=== PATIENT | female | born 1945 | race Caucasian/White ===

== ENCOUNTER 2021-01-02 21:57 | Emergency (ER) | payer MEDICARE, MEDICAID, SELFPAY ==
--- NOTE | ~2021-01-02 | CT_ITS ---
EXAMINATION: CT HEAD WITHOUT CONTRAST CLINICAL INFORMATION: Fall. Patient on blood thinning medicine. COMPARISON: Previous head CT April 2019 TECHNIQUE: Contiguous axial imaging was performed from the skull base to vertex without intravenous administration of contrast. This CT examination was performed using dose optimization techniques as appropriate, variously including the following: *Automated exposure control *Adjustment of mA and/or kV according to patient size (this includes techniques or standardized protocols for targeted exams where dose is matched to indication/reason for exam; i.e. extremities or head) *Use of iterative reconstruction technique DLP: 758 mGy-cm FINDINGS: There is no evidence of an extra-axial collection. There is a small linear focus of linear high attenuation seen in the left frontoparietal region questionable for small extra-axial/subarachnoid hemorrhage for example axial image 34 series 10. There is no other evidence of intra-axial or extra-axial hemorrhage. There is an old right occipital infarct. There is an old left parietal infarct. There is an old bilateral thalamic lacunar infarcts. The ventricles and extra-axial CSF spaces are prominent. There is nonspecific periventricular white matter disease. No mass, mass effect or acute infarct is seen. There is a large scalp hematoma overlying the left parietal bone. No skull fracture is seen. CT/CT head/brain wo con IMPRESSION: Question small focus of extra-axial hemorrhage, probably subarachnoid hemorrhage, in the left frontal parietal region near the vertex. Generalized atrophy and nonspecific periventricular white matter disease. 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 Largest scalp hematoma overlying the left parietal bone. Findings were communicated to Dr. Thurston by telephone on 01/02/2021 at 11:00 PM.
--- NOTE | ~2021-01-02 | CT_ITS ---
EXAMINATION: CT CERVICAL SPINE WITHOUT CONTRAST CLINICAL INFORMATION: Head trauma COMPARISON: None TECHNIQUE: Axial images through the cervical spine without contrast. Sagittal and coronal reconstructions on the technologist workstation were performed. This CT examination was performed using dose optimization techniques as appropriate, variously including the following: *Automated exposure control *Adjustment of mA and/or kV according to patient size (this includes techniques or standardized protocols for targeted exams where dose is matched to indication/reason for exam; i.e. extremities or head) *Use of iterative reconstruction technique DLP: 536 mGy-cm FINDINGS: There is head tilt to the left and mild curvature of the mid cervical spine to the right. Bone alignment is otherwise normal. No fracture or dislocation is seen. There is multilevel degenerative spondylosis and degenerative disc disease, greatest at C3-C4 C4-C5 C5-C6 and C6-C7. There are degenerative changes at the C1 dens articulation. Prevertebral soft tissues are normal. There is bilateral carotid calcification. Lung apices are clear. CT/CT cervical spine wo con IMPRESSION: Degenerative changes. No fracture or dislocation seen.
--- NOTE | 2021-01-02 22:08 | ED.HEATRA ---
HPI - Head Injury General Chief complaint: Fall Stated complaint: fall Time Seen by Provider: 01/02/21 22:08 Source: patient Mode of arrival: EMS Limitations: other (dementia) History of Present Illness HPI Narrative: According to senior living patient fell in the bathroom, unwitnessed. Patient unable to remember the event due to her dementia. she did vomit at the senior living Complaint: head injury Onset (ago): minute(s) Arrival Conditions: C-spine immobilization present Mechanism of Injury: fall Place: other (senior living) Loss of Consciousness: unsure Location of injury: occipital Severity: moderate Quality: sharp Radiation: none Other Injuries: none Associated symptoms: nausea and vomiting Related Data Allergies Allergy/AdvReac Type Severity Reaction Status Date / Time Penicillins [PCN] Allergy Unknown UNKNOWN Verified 01/02/21 22:10 BP MEDS Allergy Unknown CAN ONLY Uncoded 05/08/20 17:02 TAKE ATENOLOL Review of Systems Review of Systems: Yes Unobtainable due to mental status Neurologic: Denies Sensory deficit (Neuro) [facility] Past Medical History Medical History (Updated 01/02/21 @ 23:33 by Ap Thurston MD) Dementia Epilepsy Hemiparesis Hemiplegia History of falling HTN (hypertension) Hypothyroid Morbid obesity Social History Social History Alcohol intake: never Smoking Status: Never smoker Advance Directives: No Advance Directives Information Provided: Yes Physical Exam Vital Signs: Vital Signs: Last Vital Signs Temp 97.6 F 01/02/21 22:10 Pulse 92 01/02/21 23:20 Resp 16 01/02/21 23:20 BP 166/68 H 01/02/21 23:20 Pulse Ox 97 01/02/21 23:20 Body Mass Index 45.2 Const: Other: morbidly obese female demented and agitated in [facility] Nutritional Appearance: obese Orientation/consciousness: oriented to person and patient oriented x3 Limitations: no limitations HENMT: Head: Yes normal to inspection Ears: external ears normal General nose exam: Normal external nose present Mouth: Normal oral and palatal mucosa present and oropharynx normal Throat: Yes posterior oropharynx normal Eyes: General: appearance normal, both eyes and all related structures Neck: Other: [facility] Neck: Yes normal visual inspection Chest: Chest palpation & inspection: normal inspection of the chest Resp: Auscultation: clear to auscultation bilaterally Cardio: Jugular venous distension: no JVD Rate: regular rate Rhythm: regular rhythm Heart sounds: S1 normal heart sound present and S2 normal heart sound present GI: Inspection: Yes normal to inspection Palpation (GI): Soft to palpation, nontender and No hepatosplenomegaly present Auscultation: normal bowel sounds : General: Yes no CVA tenderness Back/Spine/Pelvis: Back: no CVA tenderness Skin: General skin exam: no rashes or lesions noted Neuro: General: oriented to person and patient oriented x3 Cranial nerves: Yes CN's II-XII intact bilaterally Motor exam (neuro): 5/5 motor strength present throughout Sensory Exam: No Sensory deficit (Neuro) Extrem: General: Yes normal to inspection Psych: Appearance: grossly normal Course Course Course Narrative: Patient is DNR/DNI with small subarachnoid bleed on xarelto. Will admit for observation Reevaluation(s) Reevaluation #1: Case refused by Hospitalist will try and transfer patient Time: 23:16 Reevaluation #2: presented to [facility] Time: 23:24 Reevaluation #3: Discussed with will transfer to [facility] as a trauma Time: 23:31 MDM - Head Injury Differential Diagnosis Differential diagnosis: Likely concussion without loss of consciousness, epidural hematoma, closed head injury, subarachnoid hematoma and subdural hematoma Imaging Data CT scan - head: Radiologist's impression: small left frontal parietal subarachnoid bleed. Cervical spine: Radiologist's impression: no fracture Discharge Plan Discharge Clinical Impression: Subarachnoid hemorrhage Patient Disposition: er [facility] Transfer Details: trauma service at [facility]
[2021-01-02 22:10] VITALS: BP 136/72; BP 140/78; PULSE 80; PULSE 88; RESP 18; TEMP 36.4; O2SAT 96; O2SAT 99; BMI 45.2
--- NOTE | 2021-01-02 22:37 | PC.NURSE ---
PT OFF FLOOR TO CT.
--- NOTE | 2021-01-02 23:07 | ECG_ITS ---
Test Reason : CHEST PAIN Blood Pressure : / mmHG Vent. Rate : 096 BPM Atrial Rate : 113 BPM P-R Int : 000 ms QRS Dur : 106 ms QT Int : 398 ms P-R-T Axes : 000 033 -27 degrees QTc Int : 502 ms Atrial fibrillation Nonspecific ST abnormality Abnormal QRS-T angle, consider primary T wave abnormality Abnormal ECG When compared with ECG of 03-MAY-2019 17:31, ST no longer depressed in Lateral leads T wave inversion no longer evident in Lateral leads Referred By: Ap Thurston Electronically Signed By:Alber Zapata
--- NOTE | 2021-01-02 23:12 | PC.NURSE ---
CCOLLAR REMOVED BY PT SELF PRIOR TO CLEARANCE BY CT. CT THEN CONFIRMED NO CSPINE INJURY. PT CLEANED AND REPOSITIONED, REPORTING SPINNING WHEN MOVING FROM ONE SIDE TO THE OTHER. VOMITx1. NOTIFIED. 2 IV LINES OBTAINED. PT REMAINS ALERT ORIENTED TO PERSON AND PLACE. REQUEST IN TO MD FOR ZOFRAN. PT STATES I DONT FEEL GOOD SKIN PALE WARM AND DRY. AFIB ON MONITOR. OFFERS NO OTHER COMPLAINTS. SMALL LAC TO BACK OF HEAD, BLEEDING CONTROLLED AT THIS TIME.
[2021-01-02 23:20] VITALS: BP 166/68; PULSE 92; RESP 16; O2SAT 97
[2021-01-02] MEDS: ondansetron HCL 4 MG/2 ML VIAL IVPUSH (23:51)
--- NOTE | 2021-01-02 23:52 | PC.NURSE ---
PT TO BE TRANSFERRED TO [facility]. THIS RN TO CONTACT DAUGHTER TO UPDATE ON PLAN OF CARE. PT ASSESSMENT REMAINS UNCHANGED. RESTING IN BED, A&0x2 NO FURTHER VOMITING. VSS, AFIB ON MONITOR. AWAITING TRANSPORT.
[2021-01-03] VITALS: BP 155/70; PULSE 83; RESP 17; O2SAT 92
--- NOTE | 2021-01-03 00:02 | PC.NURSE ---
THIS RN SPOKE WITH DAUGHTER MIGUEL ÁNGEL, UPDATED TO PLAN OF CARE.
== END 2021-01-03 00:14 | disposition short-term general hospital (02) ==
PROVIDERS: Emergency Provider Emergency Medicine; PCP Family Medicine
DX: S06.6X9A Traumatic subarachnoid hemorrhage with loss of consciousness of unspecified duration, initial encounter (principal); G44.309 Post-traumatic headache, unspecified, not intractable; M54.2 Cervicalgia; W01.0XXA Fall on same level from slipping, tripping and stumbling without subsequent striking against object, initial encounter; Y93.9 Activity, unspecified; Y92.121 Bathroom in nursing home as the place of occurrence of the external cause; Y99.9 Unspecified external cause status; Z79.899 Other long term (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
CPT/HCPCS: 70450; 72125; 93005; 96374; 99285; J2405

== ENCOUNTER 2024-10-02 13:33 | Emergency (ER) | payer MEDICARE, MEDICAID, SELFPAY ==
--- NOTE | ~2024-10-02 | XR_ITS ---
EXAMINATION: XR KNEE, LEFT CLINICAL INFORMATION: pain COMPARISON: 12/11/2015. TECHNIQUE: Three views of the left knee. FINDINGS: Diffuse osteopenia. No fracture, dislocation, or suspicious bone lesion. No evidence of joint effusion. Severe tricompartmental arthritis with [id number] appearance in all 3 compartments. Irregular subchondral sclerosis, cystic changes, and productive marginal changes. No discrete soft tissue abnormality. XR/XR knee LT 3V IMPRESSION: End-stage degenerative arthropathy left knee. No joint effusion. No acute finding Electronically signed by: Andrey See MD 10/02/2024 03:54 PM EST
--- NOTE | ~2024-10-02 | XR_ITS ---
EXAMINATION: X-ray left tibia and fibula.. CLINICAL INFORMATION: Probably injury. Pain. COMPARISON: No priors. TECHNIQUE: 2 views left tibia and fibula. FINDINGS: Inadequate evaluation of the proximal and distal joints demonstrated deformities in the left knee and left ankle. Osteopenia versus osteoporosis. No acute cortical disruption in the diaphysis of the tibia or the fibula. Vascular calcifications. Soft tissue contusion versus edema in the lateral malleolus. XR/XR tibia fibula LT 2V IMPRESSION: Inadequate evaluation of the proximal and distal joints suggesting bicompartmental osteoarthrosis in the left knee and soft tissue contusion and lateral malleolus. Electronically signed by: Sam Greco MD 10/02/2024 02:39 PM TATA
--- NOTE | ~2024-10-02 | XR_ITS ---
EXAMINATION: XR ANKLE 3 OR MORE VIEWS LEFT HISTORY: pain COMPARISON: There are no prior studies available for comparison. FINDINGS: Three views of the left ankle are submitted. The examination is limited due to difficulty in patient positioning and severe osteopenia. There is a mildly displaced fracture of the medial malleolus. The distal fibula is not well visualized and a fracture is not excluded. There is no dislocation. The joint spaces are preserved. There is diffuse soft tissue swelling. There are vascular calcifications. XR/XR ankle LT min 3V IMPRESSION: Limited examination due to difficulty in patient positioning and severe osteopenia. Mildly displaced fracture of the medial malleolus. The distal fibula is not well visualized and a fracture in this location is not excluded. Electronically signed by: Vince Freeman MD 10/02/2024 03:51 PM TATA
[2024-10-02 13:55] VITALS: BP 130/68; PULSE 61; RESP 20; TEMP 36.2; O2SAT 98; BMI 36.9
--- NOTE | 2024-10-02 14:04 | ED_ITS ---
HPI - Extremity Injury (Lower) General Chief Complaint: Extremity Injury, Lower Stated Complaint: poss L ankle fx from [facility], uncooperative Time Seen by Provider: 10/02/24 14:01 Source: patient Mode of arrival: EMS Limitations: other (dementia) History of Present Illness HPI Narrative: This is 79 years old the patient sent from the [facility] because of possible left tib fib fracture. Patient is unable to give any history she has history of dementia unclear of the mechanism of injury MD complaint: leg injury Onset (ago): unknown Type of Injury: blunt Place: other ([facility]) Severity: moderate Relieving factors: nothing Exacerbating factors: nothing Related Data Allergies Allergy/AdvReac Type Severity Reaction Status Date / Time Penicillins [PCN] Allergy Unknown UNKNOWN Verified 10/02/24 13:58 BP MEDS Allergy Unknown CAN ONLY Uncoded 10/02/24 13:58 TAKE ATENOLOL Review of Systems Review of Systems: Yes Other (dementia) [facility] Past Medical History Medical History (Updated 10/02/24 @ 16:23 by Jerod Alcaraz MD) Morbid obesity HTN (hypertension) Epilepsy Dementia Hypothyroid History of falling Hemiparesis Hemiplegia Social History Social History Alcohol intake: never Advance Directives: Yes Advance Directives Information Provided: No Advance Directives on File: No Physical Exam Vital Signs: Vital Signs: Last Vital Signs Temp 97.2 F 10/02/24 13:55 Pulse 61 10/02/24 13:55 Resp 20 10/02/24 13:55 BP 130/68 10/02/24 13:55 Pulse Ox 98 10/02/24 13:55 O2 Del Method Room Air 10/02/24 13:55 BMI result Body Mass Index 36.9 She is awake alert disoriented Const: General: no acute distress and well developed Nutritional Appearance: well nourished HEENT: Head: Yes normal to inspection Eyes: General: appearance normal, both eyes and all related structures Neck: Neck: Yes normal visual inspection Chest: Chest palpation & inspection: normal inspection of the chest Resp: Effort & Inspection: normal respiratory effort Auscultation: clear to auscultation bilaterally Cardio: Jugular venous distension: no JVD Rate: regular rate Rhythm: regular rhythm GI: Inspection: Yes normal to inspection Palpation (GI): Soft to palpation, not firm, nontender and no guarding Auscultation: normal bowel sounds Skin: General skin exam: no rashes or lesions noted and elasticity normal Neuro: Other: Patient has old left hemiplegia ;meuro exam at baseline Course Reevaluation(s) Reevaluation #1: We called the [place] at baseline the patient is not ambulatory she is bed- bound and Jacques transfer Time: 15:01 Reevaluation #2: Tib-fib x-ray negative, we will check also left ankle and left knee Time: 15:01 Reevaluation #3: I reviewed the x-ray of the ankle and the knee as well radiology read the x-ray as fracture of the medial malleolus, to my reading most likely is a chronic fracture, I will review the filming with orthopedist on-call Time: 16:07 Additional Reevaluation(s): d/w Tashia Adams avulsion fx medial malleoulus ,no surgical will place splint and follow up as outpatient Medical Decision Making Medical Decision Making [facility] Narrative: Patient presented with a left leg pain possible fracture we will obtain imaging Differential Diagnosis Differential Diagnoses: The differential diagnosis associated with the presentation includes Question fracture/? dislocation/? sprain Admission/Observation Consideration of admission/observation: Escalation of care including admission/observation considered Consult Healthcare Provider Management of the patient was discussed with: Customer Engagement Manager TASHIA Adams Lab Data [facility] Lab Attestation statement: I reviewed the patient's lab results. Independent Interpretation I performed an independent interpretation of an: Plain X-Ray Interpretation: I personally reviewed interpreted the x-ray as possible avulsion fracture medial malleolus Radiology Impression Discussion of test interpretation with radiology: I have reviewed the radiologist's reading. Independent Historian [facility] record Chronic Conditions CVA Procedures Orthopedic Splinting/Casting Injury #1: Side: left Lower Extremity Injury Location: ankle Additional Comments: sugar tongue spint applied by il circulation cheeked OK Discharge Plan Discharge Clinical Impression: Ankle fracture, left Qualifiers: Encounter type: initial encounter Fracture type: closed Qualified Code(s): S82.892A - Other fracture of left lower leg, initial encounter for closed fracture Patient Disposition: er [facility] Instructions: Ankle Fracture (DC) Additional Instructions: Follow-up with the orthopedist your fracture is minimally displaced , does not need any surgery. Keep the splint on Referrals: Neil Mariscal MD [Physician] - 1 week Print Language: Albanian
--- OUTSIDE RECORDS SUMMARY | 2024-10-02 15:12 | XMS_ITS | Encounter Summary ---
Author Organization [facility] Address [address] [place] [address] Care Team Providers Care Hazardous Substances Engineer Name Role Phone Elton Charles MD Primary Care Provider [phone] Encounter Details Date Type Department Care Team (Late st Contact Info) Description 09/19/2024 Lab Requisition [facility] - Main Lab [address] [place] [address] Elton Charles MD [address] [facility] [address] [place], [phone] Other senior living (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 Social History Tobacco Use Types Packs/Day Years Used Date Smoking Tobacco: Never Assessed Comments Unknown Sex and Gender Information Value Date Recorded Sex Assigned at Not on file Legal Sex Female 5:18 AM EST Gender Identity Not on file Sexual Orientation Not on file documented as of this encounter Plan of Treatment Not on file documented as of this encounter Procedures Procedure Name Priority Date/Time Associated Diagnosis Comments VALPROIC ACID LEVEL, TOTAL Routine 09/19/2024 9:03 AM EST Other senior living (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 documented in this encounter Results * (ABNORMAL) Valproic acid level, total (09/19/2024 9:03 AM EST) Valproic Acid, Total 30(L) 50 - 100 mcg/mL LAB CHEMISTRY METHOD 09/19/2024 12:37 PM EST [facility] Blood Venous blood specimen / Unknown Venipuncture / Unknown 09/19/2024 9:03 AM EST 09/19/2024 11:39 AM EST us Elton Charles MD LAB BLOOD ORDERABLES Final Resul t [facility] [place] ([facility]) HOSPITAL LAB [address] [place] [address], documented in this encounter Visit Diagnoses 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
--- OUTSIDE RECORDS SUMMARY | 2024-10-02 15:12 | XMS_ITS | Data Portability ---
Author Organization [facility], Main Office Address [address] [place] [address] Care Team Providers Care Ladle Liner Helper Name Role Phone [facility] [place] - 4TH FLOOR OTHER Assessment No assessment recorded. Plan of Treatment Reminders Order Date Submit Date Provider Last Modified By Organization Details Last Modified Time Details Appointments None record ed. Lab None record ed. Referral None record ed. Procedures None record ed. Surgeries None record ed. Imaging None record ed. Medication Orders None record ed. Patient TargetsNo targets recorded. Patient InstructionsNo instructions recorded. Reason for Referral None Reported. Problems Name Problem SNOMED Code Status Onset Date Resolution Date Notes Provider Name and Address Organization Details Recorded Time Unsteady gait Active 2019 Elton Charles MD [address], [address], [place], [address], [facility] [employer] 0 13:48:14 Hypothyroidism 98985426 Active 2020 BRAXTON BERNSTEIN [address], [address], [place], [address], [facility] [employer] 1 10:54:46 Fall Active 2020 BRAXTON BERNSTEIN [address], [address], [place], [address], [facility] [employer] 1 21:11:30 Mixed anxiety and depressive disorder 070522267 Active 2020 BRAXTON BERNSTEIN [address], [address], [place], [address], [facility] 1 21:17:00 Subarachnoid hemorrhage due to traumatic injury 038666108 Active 2020 BRAXTON BERNSTEIN [address], [address], [place], [address], [facility] 1 21:19:57 Postconcussion syndrome 28135131 Active 2020 BRAXTON BERNSTEIN [address] [facility], [address], [place], [address], [facility] 1 19:44:12 Pain in right knee Active 2020 KAY BERNSTEINP [address] [facility] [address] [facility], [address], [place], [address], [facility] 1 17:35:06 Arthritis 8575967 Active 2021 BRAXTON BERNSTEIN [address] [facility] [address] [facility], [address], [place], [address], [facility] 2 08:09:01 Chronic insomnia 470801677 Active 2021 BRAXTON BERNSTEIN [address] [facility], [address], [place], [address], [facility] 2 12:33:07 Atrial fibrillation 40459370 Active [address] [place] [address], [address], [place], [address], [facility] 9 08:53:30 Cerebrovascula r accident 178802947 Active 2018 MICKI MILIAN [address] [place] [address], [address], [place], [address], [facility] 9 08:53:35 Seizure disorder 194540564 Active 2018 MICKI MILIAN [address] [place] [address], [address], [place], [address], [facility] 9 08:54:40 Dementia 28809776 Active [address], [address], [place], [address], [facility] 9 09:00:49 Essential hypertension 25168391 Active [address], [address], [place], [address], [facility] 9 09:00:56 Obesity 356522627 Active 2018 MICIK MILIAN [address] [facility], [address], [place], [address] [facility] 9 09:01:03 Problem Notes None recorded. Medical Equipment None Reported. Allergies Allergen ID Allergen Name Allergen Category Reaction Reaction Severity Criticality Documentation Date Start Date Code Code System Note Provider Name and Address Organization Details Recorded Time 07759 Product containin g penicilli n and antibioti c (product) medicatio n Not available Not available Not available 05/05/2019 49763 05 SNOMED CAN TAKE CEFTI N Not Available Not Available Not Available Medications Not known to be on any medication Vitals Date Recorded Body height Body mass index (BMI) Body weight Heart rate Respiratory rate Body temperature Oxygen saturation Oxygen saturation in Arterial blood by Pulse oximetry Systolic blood pressure Diastolic blood pressure Provider Name and Address Organization Details Last Updated DateTime 4 165.1 cm 32.9 kg/m2 69543.2 9 g 77 /min 17 /min 98.1 [degF] 96 % 96 % 122 mm[Hg] 72 mm[Hg] Lauren Romero NP [address] [facility], [address], [place], [address], [facility] 4 08:24:02 Date Recorded Body height Body mass index (BMI) Body weight Heart rate Respiratory rate Body temperature Oxygen saturation Oxygen saturation in Arterial blood by Pulse oximetry Systolic blood pressure Diastolic blood pressure Provider Name and Address Organization Details Last Updated DateTime 5 165.1 cm 30.8 kg/m2 32538.5 9 g 74 /min 18 /min 98 [degF] 98 % 98 % 124 mm[Hg] 74 mm[Hg] Lauren Romero NP [address], [place], [address], [facility] 5 17:40:36 Date Recorded Body height Body mass index (BMI) Body weight Heart rate Respiratory rate Body temperature Oxygen saturation Oxygen saturation in Arterial blood by Pulse oximetry Systolic blood pressure Diastolic blood pressure Provider Name and Address Organization Details Last Updated DateTime 5 165.1 cm 33.6 kg/m2 63337.6 6 g 70 /min 18 /min 97.6 [degF] 98 % 98 % 132 mm[Hg] 80 mm[Hg] Lauren Romero NP [address] [facility] [facility] [address], [place], [address], [facility] 5 15:32:09 Date Recorded Body height Body mass index (BMI) Body weight Heart rate Respiratory rate Body temperature Oxygen saturation Oxygen saturation in Arterial blood by Pulse oximetry Systolic blood pressure Diastolic blood pressure Provider Name and Address Organization Details Last Updated DateTime 165.1 cm 33.6 kg/m2 51478.6 6 g 70 /min 18 /min 97.6 [degF] 98 % 98 % 132 mm[Hg] 80 mm[Hg] Lauren Romero NP [address] [facility] [address], [place], [address], [facility] [employer] 5 15:03:33 Social History Question Answer Notes LastModified by Organizat ion Details LastModified Time Tobacco Smoking Status Never Smoker Not Available [facility] 06/17/2020 03:13:20 Do You Have An Advance Directive? Yes DNR/DNI; Ok For NIV; Ok To Transfer To Hospital; No Dialysis; No Artificial Nutrition; Ok For Short-term Artificial Hydration [email or web address] Information not available 09/03/2022 What Is Your Level Of Alcohol Consumption? None [id number] Information not available 06/17/2020 How Much Tobacco Do You Chew? None [id number] Information not available 06/17/2020 What Is Your Code Status? DNR/DNI Information not available 07/02/2022 Do You Or Have You Ever Used E-cigarettes Or Vape? Never Used Electronic Cigarettes [id number] Information not available 06/17/2020 [email or web address] Information not available 07/02/2022 Legal Guardian? No Informati on not available 07/02/2022 Do You Have A Medical Power Of Payroll Consultant? Yes Valid Copy In PCC; Previously Invoked [email or web address] Information not available 09/03/2022 What Was The Date Of Your Most Recent Tobacco Screening? 08/31/2022 [email or web address] Information not available 09/03/2022 Do You Have An Out Of Hospital DNR? Yes Information not available 07/02/2022 Do You Or Have You Ever Used Smokeless Tobacco? Never Used Smokeless Tobacco [id number] Information not available 06/17/2020 How Much Tobacco Do You Smoke? No [id number] Information not available 06/17/2020 Do You Use Any Illicit Or Recreational Drugs? No Information not available 07/02/2022 Has Tobacco Cessation Counseling Been Provided? No N/a As Pt Is A Non-smoker Information not available 07/02/2022 Do You Or Have You Ever Used Any Other Forms Of Tobacco Or Nicotine? No Information not available 07/02/2022 Sex: Unknown Functional Status None recorded. Mental Status None recorded. Family History Relationship Description Onset Age of this Age Resolved Age Notes LastModified by Organization Details LastModified Time Unspecified Relation Essential hypertension [email or web address] Not available 14:44:08 Unspecified Relation Complication of anesthesia Not available 09/03 14:50:42 Medical History No medical history recorded. Gynecological HistoryNo gynecological history recorded. Obstetrics History GPAL:G 0 P 0 0 0 0 Immunizations Vaccine Type Date Status Note Provider Nam e and Address Organization Details Recorded Time COVID-19, mRNA, LNP-S, PF, 30 mcg/0.3 mL dose 1 completed JASMINE GARCIA PA-C [address] [facility] [address], [place], [address], [facility] 09/03/2022 14:26:00 Influenza, adjuvanted, quadrivalent, PF 2 [facility] 10/11/2023 08:11:48 COVID-19, mRNA, LNP-S, PF, 30 mcg/0.3 mL dose 1 completed BRAXTON BERNSTEIN [address] [facility], [address], [place], [address], [facility] 10/21/2020 17:26:27 COVID-19, mRNA, LNP-S, PF, 30 mcg/0.3 mL dose 1 completed BRAXTON BERNSTEIN [address] [facility], [address], [place], [address], [facility] 10/21/2020 17:26:39 Influenza, split virus, quadrivalent, preservative 0 completed BRAXTON BERNSTEIN [address], [address], [place], [address], [facility] 10/21/2020 17:26:55 Past Encounters Encounter ID Performer Location Encounter Start Date Encounter Closed Date Diagnosis/Indication Diagnosis SNOMED-CT Code Diagnosis ICD10 Code Diagnosis Note [id number] MICKI MILIAN [facility] [address] [address] 05/05/2019 08:51:50 05/18/2019 16:09:38 Cerebrovascular accident 680248865 I63.011 See HPI continued on xarelto 20 mg dailyAtorv astatin 40 mg qhsASA 81 mg dailyateno lol 50 mg dailyPT/OT eval and treat for weakness Seizure disorder 0899317 02 G40.009 topamax 50 mg BIDmonitor for seizure activity Essential hypertension 32704405 I10 atenolol dailymonit or bps daily Dementia 16507012 F01.50 Continue supportive care, expect declinepat ient on secured unit [id number] Elton Charles MD [facility] [address] [address] 05/08/2019 11:47:39 05/18/2019 16:14:31 Cerebrovascular accident 632881617 I63.331 see HPIacute and subacute left parietal and right occipital lobes with high grade stenosis of right posterior cerebral arterynow onxarelto 20 mg qdlipitor 40 mg qdASA 81 mg qdmonitor sxPT OT Eval and treatmonit or fall risk Dementia 16707160 F02.80 question baseline dementiain voke HCPcontinu e supportive caremonito r for behaviors and need to transition to LTC Atrial fibrillation 7625 6991 I48.0 xarelto 20 mg qdatenolol 50 mg qdmonitor for rate control Essential hypertension 90410971 I10 atenolol 50 mg qdmonitor bp Seizure disorder 8793025 02 G40.89 carrying dxmaintain ed ontopirama te 50 [place] [id number] BRAXTON BERNSTEIN [address] [address] 05/28/2019 14:32:37 05/31/2019 13:35:18 Atrial fibrillation 64020645 I48.0 xarelto 20 mg qdmonitor rate and rhythm Dementia 74340883 F02.81 depakote 125 mg bidseroque l 25 mg bidtopiram ate 50 mg biddiscuss ed risk vs benefit of depakote, seroquel and topiramate with hcpmonitor mood and behaviorsp sych eval and treatexpec t declinesup portive carequesti on of other placement for hermonitor for safetyalar ms on chairs and bed Essential hypertension 36823035 I10 ASA 81 mg qdatenolol 50 mg qd Obesity 700049937 E66.01 monitor weightdiet ician consult as needed Cerebrovas cular accident 194092760 I63.89 ASA 81 mg qdxarelto 20 mg qd atorvastat in 40 mg qdmonitor Seizure disorder 2762520 02 G40.89 topiramate 50 mg bidmonitor for seizuresfo llow with neurology prn [id number] Nidhi Bahena MD [facility] [address] [address] 07/04/2019 13:10:28 07/06/2019 14:43:15 Atrial fibrillation 30458759 I48.19 atenolol for rate controlXar elto 20 mg daily for ACwill monitor Cerebrovas cular accident 288042492 Z86.79 hx CVA: ASA 81 mg dailyatorv astatin 40 mg daily Dementia 68500188 F01.51 quetiapine 25 mg tid and bid prnsee topiramate and divalproex below for seizure disorder as well as for anxiety/mo od stabilizat ionexpect declinewil l monitor and support as needed Essential hypertension 84574163 I10 atenolol 50 mg dailywill monitor Seizure disorder 7779133 02 G40.009 divalproex delayed release 125 mg tidtopiram ate 50 mg bidwill monitor [id number] BRAXTON BERNSTEIN [facility] [address] [address] 07/25/2019 11:23:34 07/31/2019 10:53:43 Dementia 63319270 F02.81 depakote 125 mg tidseroque l 25 mg tidtopiram ate 50 mg bid monitor mood and behaviorsp sych eval and treatexpec t declinesup portive care monitor for safetyalar ms on chairs and bed Essential hypertension 32465764 I10 ASA 81 mg qdatenolol 50 mg qd monitor b/p and labs Seizure disorder 7869658 02 G40.89 topiramate 50 mg bidmonitor for seizuresfo llow with neurology prn Atrial fibrillation 4943 6004 I48.0 xarelto 20 mg qdmonitor rate and rhythm Cerebrovas cular accident 942968404 I63.89 ASA 81 mg qdxarelto 20 mg qd atorvastat in 40 mg qdmonitor [id number] Elton Charles MD [facility] [address] 10/12/2019 13:43:49 10/22/2019 12:20:48 Atrial fibrillation 53492155 I48.0 xarelto 20 mg qdatenolol 50 mg qdmonitor for rate control Essential hypertension 69114017 I10 atenolol 50 mg qdmonitor bp Dementia 20943988 F02.80 baseline dementiaco ntinue supportive caremonito r for behaviorsp sych eval prn Unsteady gait 574680738 R26.81 [place] [id number] BRAXTON BERNSTEIN [address] [address] 12/03/2019 09:23:19 12/05/2019 16:23:36 Dementia 96004673 F02.81 seroquel 25 mg tid monitor mood and behaviorsp sych eval and treatexpec t declinesup portive care HCP invoked Seizure disorder 3214442 02 G40.89 topiramate 50 mg bid depakote 125 mg tid monitor for seizuresfo llow with neurology prn Essential hypertension 13267528 I10 ASA 81 mg qdatenolol 50 mg qd monitor b/p and labs Atrial fibrillation 4943 6004 I48.0 xarelto 20 mg qdmonitor rate and rhythm Cerebrovas cular accident 951770249 I63.89 ASA 81 mg qdxarelto 20 mg qd atorvastat in 40 mg qdmonitor [id number] Jena Elliott [address] [address] 12/31/2019 08:14:24 01/03/2020 09:46:28 Unsteady gait 799119211 R26.81 refer to PT OT for eval of difficulty standingmo nitor for pain in knees, anklescont inue muscle rub and tylenol prn for pain [id number] Nidhi Bahena MD [address] [address] 02/13/2020 09:43:30 02/15/2020 11:40:14 Essential hypertension 88656420 I10 atenolol 50 mg dailywill monitor Seizure disorder 9569288 02 G40.009 divalproex delayed release 125 mg tidtopiram ate 50 mg bidwill monitor Dementia 10649399 F01.51 quetiapine 25 mg tid and bid prnsee topiramate and divalproex for seizure disorder as well as for anxiety/mo od stabilizat ionexpect declinewil l monitor and support as needed Cerebrovas cular accident 076644596 Z86.79 hx CVA: ASA 81 mg dailyatorv astatin 40 mg dailywill monitor and support Atrial fibrillation 4943 6004 I48.19 atenolol 50 mg daily for rate controlXar elto 20 mg daily for ACwill monitor [id number] BRAXTON BERNSTEIN [address] [address] 04/07/2020 10:43:00 04/15/2020 14:56:39 Dementia 85477856 F02.81 seroquel 25 mg tid monitor mood and behaviorsp sych eval and treatexpec t declinesup portive care HCP invoked Atrial fibrillation 4943 6004 I48.0 xarelto 20 mg qdmonitor rate and rhythm Seizure disorder 2412374 02 G40.89 topiramate 50 mg bid depakote 125 mg tid monitor for seizuresfo llow with neurology prn Essential hypertension 15609251 I10 ASA 81 mg qdatenolol 50 mg qd monitor b/p and labs [id number] BRAXTON BERNSTEIN [facility] [address] 05/09/2020 14:10:27 05/12/2020 15:42:54 Dementia 70869726 F02.81 seroquel 25 mg tid monitor mood and behaviorsp sych eval and treatexpec t declinesup portive care HCP invoked Essential hypertension 89748754 I10 ASA 81 mg qdatenolol 50 mg qd monitor b/p and labs Atrial fibrillation 4943 6004 I48.0 xarelto 20 mg qdmonitor rate and rhythm Cerebrovas cular accident 732420835 I63.89 ASA 81 mg qdxarelto 20 mg qd atorvastat in 40 mg qdmonitor Obesity 471425521 E66.01 monitor weightdiet ician consult as needed Seizure disorder 8628731 02 G40.89 topiramate 50 mg bid depakote 125 mg tid monitor for seizuresfo llow with neurology prn Unsteady gait 298449759 R26.81 PT/OT eval and treat prnmonitor for safety [id number] Nidhi Bahena MD [facility] [address] 06/18/2020 07:55:24 06/20/2020 11:13:12 Atrial fibrillation 54829312 I48.19 atenolol 50 mg daily for rate controlriv aroxaban 20 mg daily for ACwill monitor Cerebrovas cular accident 588955368 Z86.79 hx CVA: ASA 81 mg dailyatorv astatin 40 mg dailywill monitor and support Dementia 03844328 F01.51 quetiapine 25 mg tidsee topiramate and divalproex for seizure disorder as well as for anxiety/mo od stabilizat ionexpect declinewil l monitor and support as needed Essential hypertension 36661443 I10 atenolol 50 mg dailywill monitor Seizure disorder 0671607 02 G40.009 divalproex delayed release 125 mg tidtopiram ate 50 mg bidwill monitor [id number] BRAXTON BERNSTEIN [facility] [address] [address] 08/12/2020 11:36:19 08/19/2020 11:32:50 Dementia 65798445 F02.81 expect declinesup portive careseroqu el 25 mg tid monitor mood and behaviorsp sych eval and treatHCP invokedmon itor for safety Essential hypertension 25009647 I10 ASA 81 mg qdatenolol 50 mg qd monitor b/p and labs Seizure disorder 6752772 02 G40.89 topiramate 50 mg bid depakote 125 mg tid monitor for seizuresfo llow with neurology prn Atrial fibrillation 4943 6004 I48.0 xarelto 20 mg qdatenolol 50 mg qd monitor rate and rhythm [id number] BRAXTON BERNSTEIN [facility] [address] [address] 09/24/2020 11:49:07 09/25/2020 09:54:29 Candidiasis of skin 54819284 B37.2 anterior neck fold with rashwill order nystatin powder bid prnmonitor for resolution [id number] Nidhi Bahena MD [facility] [address] [address] 10/08/2020 09:55:52 10/10/2020 13:31:21 Dementia 23150032 F01.51 quetiapine 25 mg tidsee topiramate and divalproex for seizure disorder as well as for anxiety/mo od stabilizat ionexpect declinewil l monitor and support as needed Essential hypertension 07987472 I10 atenolol 50 mg dailywill monitor Seizure disorder 9100434 02 G40.009 divalproex delayed release 125 mg tidtopiram ate 50 mg bidwill monitor Cerebrovas cular accident 420189853 Z86.79 hx CVA:ASA 81 mg daily atorvastat in 40 mg dailywill monitor and support Atrial fibrillation 4943 6004 I48.19 atenolol 50 mg daily for rate controlriv aroxaban 20 mg daily for ACwill monitor Mixed anxi ety and depressive disorder 965915873 F41.8 sertraline 25 mg dailytopir amate 50 mg biddivalpr oex 125 mg tidquetiap ine 25 mg tidwill monitor [id number] BRAXTON BERNSTEIN [facility] [address] [address] 11/28/2020 13:39:01 12/01/2020 14:04:37 Dementia 52540828 F02.81 expect decline supportive care seroquel 25 mg tid monitor mood and behaviors psych eval and treat HCP invoked monitor for safety Essential hypertension 27864096 I10 ASA 81 mg qd atenolol 50 mg qd monitor b/p and labs Seizure disorder 9057683 02 G40.89 topiramate 50 mg bid depakote 125 mg tid monitor for seizures follow with neurology prn Atrial fibrillation 4943 6004 I48.0 xarelto 20 mg qdatenolol 50 mg qd monitor rate and rhythm [id number] BRAXTON BERNSTEIN [facility] [address] [address] 12/03/2020 10:52:41 12/05/2020 10:09:36 Hypothyroidism 45913836 E03.8 will start on low dose of levothyrox ine 12.5 mg qd will recheck TSH and Free T4 in 4 weeks and adjust as needed [id number] BRAXTON BERNSTEIN [facility] [address] [address] 01/02/2021 10:15:25 01/05/2021 15:48:58 Hypothyroidism 85469924 E03.8 levothyrox ine 12.5 mg qd-will increase to 25 mg qd will recheck TSH and free T4 in 6 weeks [id number] BRAXTON BERNSTEIN [facility] [address] [address] 01/06/2021 09:52:11 01/09/2021 09:25:26 Fall 3396552 R29.6 PT/OT eval and treat monitor for safety Dementia 70294334 F02.81 expect decline supportive care seroquel 25 mg tid monitor mood and behaviors psych eval and treat HCP invoked monitor for safety Essential hypertension 46032820 I10 ASA 81 mg qd atenolol 50 mg qd monitor b/p and labs Atrial fibrillation 4943 6004 I48.0 xarelto 20 mg qd-start back on 01/19/21 atenolol 50 mg qd monitor rate and rhythm Cerebrovas cular accident 138379034 I63.89 ASA 81 mg qd xarelto 20 mg qd-start back on 01/19/21 atorvastat in 40 mg qd monitor Hypothyroidism 59411887 E03.8 levothyrox ine 25 mg qd TSH and free T4 in 6 weeks Obesity 801629311 E66.01 monitor weightdiet ician consult as needed Seizure disorder 3219832 02 G40.89 topiramate 50 mg bid depakote 125 mg tid monitor for seizures follow with neurology prn Mixed anxi ety and depressive disorder 653122023 F41.8 zoloft 25 mg qd monitor mood psych eval and treat prn Subarachno id hemorrhage due to traumatic injury 557186416 S06.6X0S no surgical interventi on needed monitor neuros as needed alert and confused baseline xarelto on hold for 2 weeks and to start back up on 01/19/21 [id number] BRAXTON BERNSTEIN [facility] [address] [address] 01/09/2021 11:50:54 01/12/2021 14:20:09 Dizziness 077646567 R42 will order meclizine 25 mg qid prn monitor for resolution will have nursing try to give prior to care or movement [id number] BRAXTON BERNSTEIN [facility] [address] [address] 01/14/2021 09:56:35 01/16/2021 16:05:21 Postconcussion syndrome 37081927 F07.81 headaches and dizziness continue with meclizine 25 mg qid prn especially prior to care treat headaches with tylenol may prescribe something stronger if tylenol not working may take months to resolve monitor [id number] BRAXTON BERNSTEIN [facility] [address] [address] 01/20/2021 09:45:09 01/28/2021 11:17:55 Postconcussion syndrome 09514902 F07.81 headaches and dizziness appear less frequent meclizine 25 mg qid prn especially prior to care tylenol 650 mg q 4 hrs prn monitor Dementia 15761261 F02.81 expect decline supportive care seroquel 25 mg tid monitor mood and behaviors psych eval and treat HCP invoked monitor for safety Fall 3744241 R29.6 PT/OT monitor for safety Pain in right knee 22886 64180 66689 M25.561 chronic tylenol 650 mg q 4 hrs prn monitor [id number] Nidhi Bahena MD [facility] [address] [address] 01/23/2021 08:08:19 01/30/2021 12:32:39 Atrial fibrillation 34307158 I48.19 atenolol 50 mg daily for rate controlriv aroxaban 20 mg daily for ACwill monitor Cerebrovas cular accident 670029352 Z86.79 hx CVA: ASA 81 mg daily atorvastat in 40 mg daily will monitor and support Dementia 22675434 F01.51 quetiapine 25 mg tidsee topiramate and divalproex for seizure disorder as well as for anxiety/mo od stabilizat ionexpect declinewil l monitor and support as needed Essential hypertension 44778897 I10 atenolol 50 mg dailywill monitor Hypothyroidism 50655888 E03.8 levothyrox ine 25 mcg daily will monitor Mixed anxi ety and depressive disorder 965745325 F41.8 sertraline 25 mg dailytopir amate 50 mg biddivalpr oex 125 mg tidquetiap ine 25 mg tidwill monitor Seizure disorder 7616098 02 G40.009 divalproex delayed release 125 mg tidtopiram ate 50 mg bidwill monitor Subarachno id hemorrhage due to traumatic injury 624869811 S06.6X0D will continue to monitor and support as needed Osteoarthritis 987372896 M15.0 APAP 650 mg bid and q4h prn will monitor [id number] BRAXTON BERNSTEIN [facility] [address] 01/26/2021 11:23:46 01/30/2021 13:22:46 Postconcussion syndrome 68093642 F07.81 headaches and dizziness improving per patient meclizine 25 mg qid prn especially prior to care tylenol 650 mg q 4 hrs prn monitor Pain in right knee 06226 20951 54222 M25.561 chronic tylenol arthritis 650 mg bid monitor PT/OT Fall R29.6 PT/OT monitor for safety [id number] MARCIAL WARD [facility] [address] [address] 03/18/2021 13:30:14 03/23/2021 15:02:10 Subarachnoid hemorrhage due to traumatic injury 753807700 S06.6X0S continue to monitor Seizure disorder 8866422 02 G40.909 divalproex delayed release 125 mg tidtopiram ate 50 mg bidwill monitor Postconcus sammie syndrome 63780735 F07.81 meclizine 25 mg qid prn especially prior to caretyleno l 650 mg q 4 hrs prn Pain in right knee 28060 99258 71473 M25.561 tylenol arthritis 650 mg bid Obesity 935001354 E66.9 monitor weightdiet ician consult as needed Mixed anxi ety and depressive disorder 520094994 F41.8 sertraline 25 mg dailytopir amate 50 mg biddivalpr oex 125 mg tidquetiap ine 25 mg tidwill monitor Hypothyroidism 12444428 E03.9 levothyrox ine 25 mcg dailywill monitor Fall W19.XXXS PT OT prnfall precaution sfrequent safety checks Essential hypertension 90628236 I10 atenolol 50 mg dailywill monitor Dementia 57852265 F03.90 quetiapine 25 mg tidsee topiramate and divalproex for seizure disorder as well as for anxiety/mo od stabilizat ionexpect declinewil l monitor and support as needed Cerebrovas cular accident 032687024 I63.9 ASA 81 mg dailyatorv astatin 40 mg dailywill monitor and support Atrial fibrillation 4943 6004 I48.91 atenolol 50 mg daily for rate controlriv aroxaban 20 mg daily for ACwill monitor [id number] [facility] [address] 05/08/2021 08:38:49 05/11/2021 14:49:11 Atrial fibrillation 77093678 I48.19 atenolol 50 mg daily for rate controlriv aroxaban 20 mg daily for ACwill monitor Cerebrovas cular accident 760127159 I63.9 hx CVA: ASA 81 mg daily atorvastat in 40 mg daily will monitor and support Dementia 70681406 F02.80 see meds for anxiety/mo od stabilizat ionexpect declinewil l monitor and support as needed Essential hypertension 01740210 I10 atenolol 50 mg dailywill monitor Hypothyroidism 04352560 E03.8 levothyrox ine 25 mcg daily will monitor Mixed anxi ety and depressive disorder 427633076 F41.8 topiramate 50 mg biddivalpr oex 125 mg tidquetiap ine 25 mg bid and 50 mg at hssertrali ne 25 mg dailywill monitor Seizure disorder 0133841 02 G40.909 divalproex delayed release 125 mg tidtopiram ate 50 mg bidwill monitor Osteoarthritis 874316629 M15.0 APAP 650 mg q4h prn will monitor [id number] KINZA MAIN NP [address] [address] 1 05/12/2021 10:21:01 05/14/2021 11:15:01 Atrial fibrillation 02358956 I48.19 atenolol 50 mg daily for rate controlriv aroxaban 20 mg daily for ACwill monitorChe ck CBC x 1 Cerebrovas cular accident 777348385 I63.9 hx CVA: ASA 81 mg daily atorvastat in 40 mg daily will monitor and supportChe ck CMP and lipids x 1 Dementia 65767436 F02.80 see meds for anxiety/mo od stabilizat ionexpect declinewil l monitor and support as needed Essential hypertension 70294180 I10 atenolol 50 mg dailywill monitor Hypothyroidism 95927594 E03.8 levothyrox ine 25 mcg daily will monitorChe ck TSH x 1 Mixed anxi ety and depressive disorder 871775931 F41.8 topiramate 50 mg biddivalpr oex 125 mg tidquetiap ine 25 mg bid and 50 mg at hssertrali ne 25 mg dailywill monitorChe ck CMP, VPA level x 1 Seizure disorder 2373726 02 G40.909 divalproex delayed release 125 mg tidtopiram ate 50 mg bidwill monitor Osteoarthritis 709830352 M15.0 APAP 650 mg q4h prn will monitor Subarachno id hemorrhage due to traumatic injury 180074155 S06.6X0S and post concussive syndrome - improved. [id number] MICKI MILIAN [facility] [address] [address] 07/08/2021 12:11:12 07/10/2021 11:56:18 Atrial fibrillation 23016038 I48.19 atenolol 50 mg daily for rate controlriv aroxaban 20 mg daily for ACASA 81 mg dailywill monitor rate, bleeding risk Cerebrovas cular accident 019903176 I63.9 hx CVA: ASA 81 mg daily atorvastat in 40 mg daily will monitor and supportChe ck CMP and lipids yearly Dementia 39448009 F02.80 see meds for anxiety/mo od stabilizat ionexpect declinewil l monitor and support as needed Essential hypertension 13800169 I10 atenolol 50 mg dailywill monitor Hypothyroidism 30338786 E03.8 levothyrox ine 25 mcg daily will monitorChe ck TSH tomorrow 07/09 Mixed anxi ety and depressive disorder 372500336 F41.8 topiramate 50 mg biddivalpr oex 125 mg tidquetiap ine 25 mg bid and 50 mg at hssertrali ne 25 mg dailywill monitor mood - consider GDR, patient seems dazed during visit. Seizure disorder 3475682 02 G40.909 divalproex delayed release 125 mg tidtopiram ate 50 mg bidwill monitor Osteoarthritis 110908116 M15.0 APAP 650 mg q4h prn will monitor [id number] KINZA MAIN NP [facility] [address] [address] 08/10/2021 14:37:50 08/13/2021 13:42:38 Bleeding of mouth 93409505 K13.79 Unclear etiology -? oral?respO n xarelto and ASA - may cause pt. to bleed easierChec k CBCmonitor VS, s/s bleedingMo nitor for further GI sx.Can get dental exam if remains problemati cCan check CXR as well [id number] Nidhi Bahena MD [facility] [address] [address] 09/02/2021 07:17:29 09/04/2021 12:52:37 Dementia 63037617 F02.80 see meds for anxiety/mo od stabilizat ionexpect declinewil l monitor and support as needed Atrial fibrillation 4943 6004 I48.19 atenolol 50 mg daily for rate controlriv aroxaban 20 mg daily for ACwill monitor Hypothyroidism 25764365 E03.8 levothyrox ine 25 mcg daily will monitor Mixed anxi ety and depressive disorder 519535149 F41.8 topiramate 50 mg biddivalpr oex 125 mg tidquetiap ine 50 mg bid and 25 mg at 2pmsertral ine 25 mg dailywill monitor Seizure disorder 0684060 02 G40.909 divalproex 125 mg tidtopiram ate 50 mg bidwill monitor History of cerebrovascular accident 458726696 Z86.73 hx CVA: ASA 81 mg daily atorvastat in 40 mg daily will monitor and support Osteoarthritis 724939488 M15.0 APAP 650 mg q4h prnAPAP ER 650 mg bidwill monitor [id number] KINZA MAIN NP [facility] [address] [address] 10/20/2021 13:24:08 10/23/2021 14:58:10 Choking 355327264 R09.89 Self limited event 10/18Able to clear blockage with assist from staff.Diet down graded to mech. softReferr ed to [facility] for all meals in supervised setting.Mo nitor closely for now. [id number] BRAXTON BERNSTEIN [facility] [address] [address] 1 10/23/2021 08:49:13 10/27/2021 14:56:43 Dementia 98600178 F02.80 expect decline supportive care seroquel 25 mg qd and 50 mg bid monitor mood and behaviors psych eval and treat HCP invoked monitor for safety Atrial fibrillation 4943 6004 I48.19 xarelto 20 mg qd atenolol 50 mg qd monitor rate and rhythm Essential hypertension 35841599 I10 ASA 81 mg qd atenolol 50 mg qd monitor b/p and labs Hypothyroidism 88275462 E03.8 levothyrox ine 25 mg qd TSH and free T4 Mixed anxi ety and depressive disorder 371350858 F41.8 zoloft 25 mg qd monitor mood psych eval and treat prn Seizure disorder 7891132 02 G40.909 topiramate 50 mg bid depakote 125 mg tid monitor for seizures follow with neurology prn Fall W19.XXXS PT/OT eval and treat prn monitor for safety [id number] BRAXTON BERNSTEIN [facility] [address] [address] 11/09/2021 11:21:16 11/12/2021 15:00:36 Choking 879945743 R09.89 out of bed for meals with supervisio n mechanical soft diet up graded to thin liquids continue to work with speech therapy monitor [id number] BRAXTON Richards [facility] [address] [address] 11/27/2021 10:51:04 11/30/2021 15:22:04 Edema of lower extremity 401093692 R60.0 continue wilber wrapsdoes not need diuretic at this pointmonit or edemacheck bmp on 11/30/21 Hypothyroidism 73324795 E03.8 continue levothyrox ine 25 mcg qdcheck tsh, FT4 on 11/30/21 Dementia 13804800 F02.80 supportive careexpect declinemon itor mood Weight gain 4547318 R63. 5 pt is eating 100% of all her meals nowmonitor intakeweig ht weekly x 4 weeksis not on supplement shakes or double portions [id number] BRAXTON BERNSTEIN [facility] [address] [address] 1 11/30/2021 15:13:48 12/07/2021 16:44:25 Hypothyroidism 50933544 E03.8 levothyrox ine 25 mcg qd-will increase to 37.5 mcg qd recheck TSH and free T4 in 4 weeks [id number] Nidhi Bahena MD [facility] [address] [address] 12/16/2021 06:51:26 12/21/2021 12:17:26 Dementia 15451789 F02.80 see meds for anxiety/mo od stabilizat ionexpect declinewil l monitor and support as needed Cerebrovas cular accident 219425883 I63.9 hx CVA: ASA 81 mg daily atorvastat in 40 mg daily will monitor and support Atrial fibrillation 4943 6004 I48.19 atenolol 50 mg daily for rate controlriv aroxaban 20 mg daily for ACwill monitor Hypothyroidism 88670769 E03.8 levothyrox ine 37.5 mcg daily will monitor Mixed anxi ety and depressive disorder 091371910 F41.8 topiramate 50 mg biddivalpr oex 125 mg tidquetiap ine 50 mg bid and 25 mg at 2pmsertral ine 25 mg dailywill monitor Seizure disorder 9744062 02 G40.909 divalproex 125 mg tidtopiram ate 50 mg bidwill monitor Essential hypertension 59221437 I10 atenolol 50 mg dailywill monitor Osteoarthritis 663857971 M15.0 APAP 650 mg q4h prnAPAP ER 650 mg bidwill monitor [id number] KINZA MAIN, TSERING [facility] [address] [address] 12/31/2021 13:48:11 01/01/2022 17:40:33 Diaper rash 07887390 L22 irritation most likely related to moisture and irritation from her brief, however may have some underlying fungal irritation as well.Keep area as clean and dry as able, keep brief loose to avoid bunching in between legs, leave open at night.Lotr isone cream to ext. vaginal/la bial area bid and prn x 14 daysMonito r for improvemen t [id number] BRAXTON BERNSTEIN [facility] [address] [address] 02/01/2022 12:57:09 02/03/2022 12:38:21 Candidiasis of vagina 52836376 B37.3 will order diflucan 100 mg x1 (only have 100's in e-kit) then 150 mg x1 in one week monitor for resolution [id number] BRAXTON BERNSTEIN [facility] [address] [address] 02/05/2022 11:33:42 02/08/2022 15:31:26 Dementia 40025229 F02.80 expect decline supportive care seroquel 50 mg bid monitor mood and behaviors psych eval and treat prn HCP invoked monitor for safety Atrial fibrillation 4943 6004 I48.19 xarelto 20 mg qd atenolol 50 mg qd monitor rate and rhythm Hypothyroidism 81899788 E03.8 levothyrox ine 37.5 mcg qd monitor TSH and free T4 Seizure disorder 0035922 02 G40.909 topiramate 50 mg bid depakote 125 mg tid monitor for seizures follow with neurology prn Essential hypertension 74493962 I10 ASA 81 mg qd atenolol 50 mg qd monitor b/p and labs [id number] Nidhi Bahena MD [facility] [address] 03/26/2022 09:35:51 03/30/2022 15:04:57 Dementia 77441053 F02.80 see meds for anxiety/mo od stabilizat ionexpect declinewil l monitor and support as needed Cerebrovas cular accident 120972292 Z86.79 hx CVA: ASA 81 mg daily atorvastat in 40 mg daily will monitor and support Atrial fibrillation 4943 6004 I48.19 atenolol 50 mg daily for rate controlriv aroxaban 20 mg daily for ACwill monitor Essential hypertension 88266116 I10 atenolol 50 mg dailywill monitor Hypothyroidism 57639127 E03.8 levothyrox ine 37.5 mcg daily will monitor Mixed anxi ety and depressive disorder 265188661 F41.8 topiramate 50 mg biddivalpr oex 125 mg tidquetiap ine 50 mg bid and 25 mg at 2pmsertral ine 25 mg dailywill monitor Seizure disorder 4477607 02 G40.909 divalproex 125 mg tidtopiram ate 50 mg bidwill monitor Chronic pain 50496730 G8 9.29 APAP 1000 mg bid and 650 mg q8h prnwill monitor [id number] KINZA MAIN NP [facility] [address] 04/08/2022 15:05:28 04/13/2022 13:29:05 Parotitis 51217254 K11.20 acute, per. 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 Not oriented to year or situation. expect decline supportive care seroquel 25 mg qd and 50 mg bid monitor mood and behaviors psych eval and treat prn HCP invoked monitor for safety Mixed anxi ety and depressive disorder 130544385 F41.8 No acute depressive sxs. Flat affect. zoloft 25 mg qd monitor mood psych eval and treat prn Essential hypertension 11045574 I10 ASA 81 mg qd atenolol 50 mg qd monitor b/p and labs Hypothyroidism 57191744 E03.8 11/30/21: TSH 5.16 levothyrox ine 37.5 mcg qd monitor TSH and free T4 Fall W19.XXXS PT/OT as needed monitor for safety Obesity 874366426 E66.9 monitor weight small stock facer consult as needed Seizure disorder 7399392 02 G40.909 No recent seizures. topiramate 50 mg bid depakote 125 mg tid monitor for seizures follow with neurology prn Arthritis 7677424 M15.0 Pt continues to have right knee and ankle pain. Moderate in intensity. APAP 1000 mg bid and 650 mg q 8 hrs prn monitor pain Atrial fibrillation 4943 6004 I48.19 Denies CP, palpitatio ns, SOB. Rate WNL. xarelto 20 mg qd atenolol 50 mg qd monitor rate and rhythm Cerebrovas cular accident 463482604 Z86.79 ASA 81 mg qd xarelto 20 mg qd atorvastat in 40 mg qd monitor [id number] BRAXTON BENRSTEIN [facility] [address] [place] [address] 05/21/2022 10:45:22 05/24/2022 15:30:00 Chronic insomnia 833751241 F51.04 noted to complain of difficulty sleeping to psych will add melatonin 3 mg q hs prn monitor sleep [id number] Bina Tay MD [facility] [address] [address] 07/02/2022 14:09:34 07/20/2022 15:07:51 Dementia 68548438 F02.B3 Continues at baselineCo ntinue sertraline 25 mg qd, topiramate 50 mg BID, depakote 125 mg TID, melatonin 3 mg qhs, and seroquel 50 mg BID and 25 mg qd at 1 PM.On topiramate and depakote primarily for seizure disorder, but also work as mood stabilizer s.Continue supportive care, expect decline.HC P invokedMon itor mood and behaviors. Psych consult prn. Mixed anxi ety and depressive disorder 612961264 F41.8 As above Essential hypertension 75191189 I10 Adequate control on atenolol 50 mg qdMonitor BP and labs. Hypothyroidism 74517224 E03.8 TSH sl high, but with nl FT4.Contin ue levothyrox ine 37.5 mcg qdMonitor TSH and FT4 yearly. Seizure disorder 0424798 02 G40.802 No recent seizure activity.C ontinue meds as above.Valp roic acid level low, but ok as being used synergisti vince with depakote.M onitor for seizure activity. Arthritis 5003358 M15.0 No c/o today.Cont inue APAP 1000 mg BID and 650 mg q 8 hrs prnMonitor sxs. Atrial fibrillation 4943 6004 I48.19 Rate in good control on atenolol as above.Cont inue xarelto 20 mg qd for AC.Monitor HR and bleeding risk. Cerebrovas cular accident 122021508 Z86.79 No recent sxs. Continue atorvastat in 40 mg qd and ASA 81 mg qd. Monitor for new sxs. [id number] JASMINE GARCIA PA-C [facility] [address] [address] 08/20/2022 13:32:07 09/03/2022 15:54:36 COVID-19 326798045 U07.1 CrCl 65.9 per CC&G ABW-Paxlov id 300-100 mg po bid x 5 days-start when available- hold Lipitor x 7 days-decre ase Xarelto from 20 mg to 10 mg po q 1700 x 7 days then resume usual dosing-mon itor for bleeding-h old Seroquel x 7 days due to risk of QT prolongati on and is only on a tiny dose-hold Zoloft x 7 days due to risk of QT prolongati on and is only on a tiny dose-hold Topamax x 7 days due to interferen ce with Paxlovid-o k to continue Melatonin despite risk of decreased Melatonin efficacy with Paxlovid-o k to continue Depakote despite risk of decreased VPA levels - only a 5-day courseSupp ortive carePrecau tions per facility protocol Vascular d ementia without behavioral disturbance [id number] 7213525 F01.50 Did not tolerate SLUMS JASMINE GARCIA PA-C [facility] [address] [address] 08/24/2022 15:29:05 09/03/2022 16:20:13 Acute COVID-19 7254264677 U07.1 Finish PaxlovidFo llow clinically Supportive carePrecau tions per facility protocol [id number] JASMINE GARCIA PA-C [facility] [address] [address] 08/31/2022 20:35:34 09/16/2022 16:01:02 Weight loss 40061951 R63.4 Recent acute illnessSom e degree of wt loss is desirable in this patientMon itor weightsRD also following Acute COVID-19 451232724 8 U07.1 completed Paxlovidcl inically recovered Recurrent falls 50272241 2 R29.6 PT/OT prn [id number] JASMINE GARCIA PA-C [facility] [address] [address] 10/06/2022 19:26:54 10/12/2022 15:37:50 Vascular dementia with behavioral disturbance 3288120356 59878 F01.518 Clarify status of labs ordered for 08/04/22-r e-order if not doneNo indication for q 6-month monitoring of lipids and A1c given advanced age, comorbidit ies, and goals of care-annua l monitoring adequate although would still consider not monitoring these labs for the same reason since results would not change the management of the patient [id number] JASMINE GARCIA PA-C [facility] [address] [address] 10/08/2022 15:07:10 10/12/2022 16:04:06 Dyslipidemia 779488231 E78.5 satisfacto ry lipid panelwill not reduce statin since TG above goalfollow annually Acquired hypothyroidism 663964997 E03.9 TSH not able to be done today -- await re-draw and f/u when resulted Vascular d ementia with behavioral disturbance 1404125947 76153 F01.518 VPA level extremely subtherape utic although last dose prior to morning draw was ~16 hours-T 1/2 VPA 9-16 hoursIs also on the VPA for seizure d/o-has not had any seizuresNo behavioral issues documented No sedation documented Will hold off on adjusting dose for now until can gather more data-plan will be either for increasing dose based on behaviors or d/c med since not seizing and this degree of subtherape utic level essentiall y equivalent to not being on the med at all [id number] Nidhi Bahena MD [facility] [address] [address] 11/03/2022 09:14:17 11/04/2022 18:51:16 Dementia 06862545 F02.B3 see meds for mixed anxiety disorderex pect declinewil l monitor and support as needed Atrial fibrillation 4943 6000 I48.19 atenolol 50 mg daily for rate controlriv aroxaban 20 mg daily for ACwill monitor Mixed anxi ety and depressive disorder 728222159 F41.8 topiramate 50 mg biddivalpr oex 125 mg tidquetiap ine 50 mg bid and 25 mg daily at 2pmsertral ine 25 mg dailywill monitor Essential hypertension 66064866 I10 atenolol 50 mg dailywill monitor Seizure disorder 4466182 02 G40.802 divalproex 125 mg tidtopiram ate 50 mg bidwill monitor Hypothyroidism 23931925 E03.8 levothyrox ine 37.5 mcg daily will monitor Hyperlipidemia 16389641 E78.49 atorvastat in 40 mg dailywill monitor Chronic pain 78172895 G8 9.29 APAP 1000 mg bid and 650 mg q8h prnmuscle rub cream to neck, upper extremity prnwill monitor [id number] KINZA MAIN NP [facility] [address] 12/29/2022 15:54:14 01/03/2023 12:30:13 Dementia 54548646 F02.B3 QUETIAPINE 50MG TABS BIDQUETIAP INE 25MG TABS dailymonit or mood, behaviorse xpect declinepsy ch eval as needed Atrial fibrillation 4943 6004 I48.19 continue:a tenolol 50 mg daily for rate controlriv aroxaban 20 mg daily for ACmonitor VSmonitor labs Mixed anxi ety and depressive disorder 247071603 F41.8 topiramate 50 mg biddivalpr oex 125 mg tidquetiap ine 50 mg bid and 25 mg daily at 2pmsertral ine 25 mg dailypsych eval as neededmoni tor mood, behaviors for change Essential hypertension 18988917 I10 atenolol 50 mg dailymonit or VS, adjust meds prnmonitor for clinical status changes Seizure disorder 2415724 02 G40.802 divalproex 125 mg tidtopiram ate 50 mg bidmonitor labsmonito r for clinical status changes Hypothyroidism 00427433 E03.8 levothyrox ine 37.5 mcg dailylast TSH 4.65 in 2021monito r labs q 6-12 months and prn Hyperlipidemia 75921091 E78.49 atorvastat in 40 mg dailymonit or labs a s needed Chronic pain 20813021 G8 9.29 APAP 1000 mg bid and 650 mg q8h prnmuscle rub cream to neck, upper extremity prn [id number] MICKI MILIAN [facility] [address] [address] 02/04/2023 12:23:12 02/08/2023 09:49:29 Tongue biting 036271402 K14.8 unclear cause, no trauma or lesions notedconti nue to monitor for recurrent issues [id number] Nidhi Bahena MD [facility] [address] [address] 02/18/2023 09:35:48 03/03/2023 15:50:43 Atrial fibrillation 66908216 I48.19 atenolol 50 mg daily for rate controlriv aroxaban 20 mg daily for ACwill monitor Dementia 24136181 F02.B3 see meds for mixed anxiety disorderex pect declinewil l monitor and support as needed Mixed anxi ety and depressive disorder 515310523 F41.8 topiramate 50 mg biddivalpr oex 125 mg tidquetiap ine 50 mg bid and 25 mg daily at 2pmsertral ine 25 mg dailywill monitor Essential hypertension 54190776 I10 atenolol 50 mg dailywill monitor Cerebrovas cular accident 450704680 Z86.79 hx CVA: ASA 81 mg daily atorvastat in 40 mg daily will monitor and support Hypothyroidism 00695180 E03.8 levothyrox ine 37.5 mcg daily will monitor [id number] KINZA MAIN NP [facility] [address] [address] 04/14/2023 14:56:07 04/18/2023 10:57:13 Atrial fibrillation 73636120 I48.19 No change with OPC -Continue: atenolol 50 mg daily for rate controlriv aroxaban 20 mg daily for ACMonitor VS, labs, adjust tx. prn Dementia 70973656 F02.B3 with agitationP sych follows, continue:t opiramate 50 mg biddivalpr oex 125 mg tidquetiap ine 50 mg bid and 25 mg daily at 2pmsertral ine 25 mg dailyMonit or mood, behaviors, continue expected decline Mixed anxi ety and depressive disorder 308996715 F41.8 Remains on:topiram ate 50 mg biddivalpr oex 125 mg tidquetiap ine 50 mg bid and 25 mg daily at 2pmsertral ine 25 mg dailyAppre ciate psych input, monitor mood, behaviors, trend labs, adjust prn Essential hypertension 21425120 I10 Stable on atenolol 50 mg dailymonit or VS, adjust prn Cerebrovas cular accident 794628200 Z86.79 hx CVA: Continue: ASA 81 mg daily atorvastat in 40 mg daily Hypothyroidism 65617230 E03.8 Continue levothyrox ine 37.5 mcg dailyTSH 5.04, no change Seizure disorder 7485353 02 G40.802 No activity.d ivalproex level a little low, but as no sz. activity in quite some time, so will not increase dose - continue 125 mg tidcontinu e topiramate 50 mg bidmonitor sz. activity [id number] Nidhi Bahena MD [facility] [address] 06/17/2023 09:19:56 06/21/2023 12:18:25 Dementia 44454851 F02.B3 see meds for mixed anxiety disorderex pect declinewil l monitor and support as needed Atrial fibrillation 4943 6004 I48.19 atenolol 50 mg daily for rate controlriv aroxaban 20 mg daily for ACwill monitor Essential hypertension 16620499 I10 atenolol 50 mg dailywill monitor Mixed anxi ety and depressive disorder 267943466 F41.8 topiramate 50 mg biddivalpr oex 125 mg tidquetiap ine 50 mg bid and 25 mg daily at 2pmsertral ine 25 mg dailywill monitor Hypothyroidism 51837164 E03.8 levothyrox ine 37.5 mcg daily will monitor Seizure disorder 4319988 02 G40.802 divalproex 125 mg tidtopiram ate 50 mg bidwill monitor Chronic pain 21837134 G8 9.29 APAP 1000 mg bid and 500 mg q4h prnmuscle rub cream to neck, upper extremity prnwill monitor History of cerebrovascular accident 294497438 Z86.73 hx CVA: ASA 81 mg daily atorvastat in 40 mg daily will monitor and support [id number] KINZA MAIN NP [facility] [address] 07/07/2023 09:08:18 07/12/2023 08:44:00 Atrial fibrillation 82068842 I48.19 Continue:a tenolol 50 mg daily for rate controlriv aroxaban 20 mg daily for ACMonitor VS, labs, adjust tx. prn Dementia 22025526 F02.B3 with agitationP sych follows, continue:t opiramate 50 mg biddivalpr oex 125 mg tidquetiap ine 50 mg bid and 25 mg daily at 2pmsertral ine 25 mg dailyMonit or mood, behaviors, continue expected decline Mixed anxi ety and depressive disorder 856342277 F41.8 See above, followed by PsychRemai ns on:topiram ate 50 mg biddivalpr oex 125 mg tidquetiap ine 50 mg bid and 25 mg daily at 2pmsertral ine 25 mg dailyAppre ciate psych input, monitor mood, behaviors, trend labs, adjust prn Essential hypertension 40312922 I10 Stable on atenolol 50 mg dailymonit or VS, adjust prn Cerebrovas cular accident 212497638 Z86.79 hx CVA: Continue: ASA 81 mg daily atorvastat in 40 mg dailyCheck LFTs x 1 Hypothyroidism 05284774 E03.8 Continue levothyrox ine 37.5 mcg dailyTSH 5.04, no change Seizure disorder 6306211 02 G40.802 No activity.d ivalproex level a little low, but as no sz. activity in quite some time, so will not increase dose - continue 125 mg tidcontinu e topiramate 50 mg bidmonitor sz. activity [id number] Lauren Romero NP [address] [address] 08/05/2023 12:03:24 08/09/2023 14:50:46 Atrial fibrillation 26346362 I48.19 rate stableaten olol 50 mg daily for rate controlriv aroxaban 20 mg daily for ACMonitor VS, and for bleeding Dementia 61171622 F02.B3 with agitationP sych follows, continue:t opiramate 50 mg biddivalpr oex 125 mg tidquetiap ine 50 mg bid and 25 mg daily at 2pmsertral ine 25 mg dailyMonit or mood, behaviorsc ontinue expected decline Mixed anxi ety and depressive disorder 120218735 F41.8 See above, followed by Psychtopir amate 50 mg biddivalpr oex 125 mg tidquetiap ine 50 mg bid and 25 mg daily at 2pmsertral ine 25 mg dailyAppre ciate psych input, monitor mood, behaviors, trend labs, adjust prnno changes at last visit Essential hypertension 56900638 I10 bp stableaten olol 50 mg dailymonit or VS, adjust prn Cerebrovas cular accident 436937038 Z86.79 hx CVA: ASA 81 mg daily atorvastat in 40 mg daily Hypothyroidism 12728865 E03.8 levothyrox ine 37.5 mcg dailylast TSH 5.04, no change Seizure disorder 0694579 02 G40.802 divalproex level 18 in sz. activity in quite some time, so will not increase dosecontdi valporex 125 mg tidtopiram ate 50 mg bidmonitor sz. activitymo nitor level prn [id number] Nidhi Bahena MD [facility] [address] [place] [address] 10/12/2023 08:12:48 10/13/2023 19:44:51 Dementia [id number] F02.B3 see meds for mixed anxiety disorderex pect declinewil l monitor and support as needed Mixed anxi ety and depressive disorder 776594720 F41.8 topiramate 50 mg biddivalpr oex 125 mg tidquetiap ine 50 mg bid and 25 mg daily at 2pmsertral ine 25 mg dailywill monitor Chronic pain 18750641 G8 9.29 APAP 1000 mg bid and 500 mg q4h prnmuscle rub cream to neck, upper extremity prnwill monitor Essential hypertension 43541895 I10 atenolol 50 mg dailywill monitor Hypothyroidism 18778165 E03.8 levothyrox ine 37.5 mcg daily will monitor Atrial fibrillation 4943 6004 I48.19 atenolol 50 mg daily for rate controlriv aroxaban 20 mg daily for ACwill monitor Hyperlipidemia 59317327 E78.49 atorvastat in 40 mg dailywill monitor [id number] Lauren Romero NP [facility] [address] [place] [address] 10/24/2023 11:26:17 10/26/2023 14:52:08 Dementia 02073129 F02.B3 see meds for mixed anxiety disorderex pect declinewil l monitor and support as needed Mixed anxi ety and depressive disorder 809189685 F41.8 topiramate 50 mg biddivalpr oex 125 mg tidquetiap ine 50 mg bid and 25 mg daily at 2pmsertral ine 25 mg dailyseen by psych on 10/20 and rec: monitor with q 6 month antipsycho tic guideline monitoring q 6 months: cbc, cmp, ha1c, lipid profile, tsh, valproic acidlast on 03/29/23 [id number] [facility] [address] [place] [address] 10/26/2023 10:18:59 10/27/2023 16:25:32 Dementia [id number] F02.B3 see meds for mixed anxiety disorderex pect declinewil l monitor and support as needed 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 activity in a long time, so will not increase dosecontdi valporex 125 mg tidtopiram ate 50 mg bidmonitor sz. activitymo nitor level q 6 months [id number] [facility] [address] [place] [address] 11/30/2023 10:08:26 12/07/2023 15:16:12 Dementia 94732648 F02.B3 see meds for mixed anxiety disorderex pect declinewil l monitor and support as needed Mixed anxi ety and depressive disorder 559401053 F41.8 conttopira mate 50 mg biddivalpr oex 125 mg tidquetiap ine 50 mg bid and 25 mg daily at 2pmsertral ine 25 mg dailywill monitor Chronic pain 90305525 G8 9.29 APAP 1000 mg bid and 500 mg q4h prnmuscle rub cream to neck, upper extremity prnwill monitor Essential hypertension 90820519 I10 atenolol 50 mg dailywill monitor Hypothyroidism 56323648 E03.8 levothyrox ine 37.5 mcg daily will monitor Atrial fibrillation 4943 6004 I48.19 atenolol 50 mg daily for rate controlriv aroxaban 20 mg daily for ACwill monitor Hyperlipidemia 21832055 E78.49 atorvastat in 40 mg dailywill monitor Red right eye [id number] 8434788 R68.89 right eye injectionu nclear cause10 start erythromcy in 0.5% oint 1/2 ribbon to right eye qid x 7 daysmonito r for visual changes, pain [id number] Lauren Romero NP [facility] [address] [facility] [place] [address] 12/09/2023 13:34:47 12/14/2023 10:08:23 Dementia 41735023 F02.B3 see meds for mixed anxiety disorderex pect declinewil l monitor and support as needed Injury of forearm 209375 008 S59.911A right forearm and right hand bruise without known source of injuryno xray neededtyl prn for pain if neededmoni tor closely [id number] KINZA MAIN NP [address] [address] 01/19/2024 09:50:08 01/24/2024 15:25:13 Bleeding of oral mucosa 306393985 K13.79 Pt. not cooperativ e with oral exam.No gross s/s active bleeding during visit.Staf f reports it is a daily occurrence for well over a year.Seen by Dentist 01/09/24, no concerns of bleeding with exam.VSS, last labs stable.MAR reviewed, is on ASA and xarelto. Plan -stop ASA, continue xareltoper idex mouth rinse 12% 15 ml bid x 2 wks (if unable to properly use mouth rinse, may use swab to apply to oral mucosaCont inue to monitor. [id number] Lauren Romero NP [facility] [address] [address] 01/25/2024 11:58:17 01/30/2024 19:44:46 Decreased hearing 084120293 H91.90 audiology referral for decreased hearingnee d to charan or brian diaz [id number] Elton Charles MD [facility] [address] [address] 02/01/2024 11:52:26 02/03/2024 12:08:14 Atrial fibrillation 15167153 I48.19 xarelto 20 mg qdatenolol 50 mg qdmonitor for rate control Essential hypertension 14631847 I10 atenolol 50 mg qdmonitor bp and need to titrate Dementia 33022587 F02.B3 baseline dementia with behaviors maintained onseroquel and depakoteco ntinue supportive caremonito r for behaviorsp sych to follow [id number] Lauren Romero NP [facility] [address] [address] 03/08/2024 10:39:24 03/13/2024 14:57:28 Atrial fibrillation 66399007 I48.19 xarelto 20 mg qdatenolol 50 mg qdmonitor for rate control Essential hypertension 71290577 I10 atenolol 50 mg qdmonitor bp and need to titrate Dementia 85492023 F02.B3 baseline dementia with behaviors 03/08/24: clinical psychologist private practice rec to decrease seroqel to 25 mg po bid, will agreecont depakoteco ntinue supportive caremonito r for behaviorsp sych to follow [id number] Lauren Romero NP [facility] [address] [address] 03/12/2024 09:47:09 03/13/2024 15:28:09 Dementia 08196190 F02.B3 baseline dementia with behaviors on 03/08/24: clinical psychologist private practice rec to decrease seroquel to 25 mg po bid 03/12 unclear if refusing meds lately is related to: ? hx of doing this, med change, particular staff she is misconceiv ing(taking meds today and usually on days)will get urinalysis with c & s, bmp and cbc todaywill wait for results before adjusting meds contdepako te 125 mg po tidtopamax 50 mg po bidcontinu e supportive caremonito r for behaviorsp sych to follow Aphthous u lcer of mouth 028229937 K12.0 pt with long standing ulcer in mouth(? likely from biting and grinding)c ont orders forincreas e bid mouth care and chlorhexid ine swab bidwill continue [id number] Lauren Romero NP [facility] [address] 03/16/2024 10:55:29 03/20/2024 08:01:35 Dementia 36742399 F02.B3 baseline dementia with behaviors on 03/08/24: clinical psychologist private practice rec to decrease seroquel to 25 mg po -bid= agreed 03/12 unclear if refusing meds lately is related to: ? hx of doing this, med change, particular staff she is misconceiv ing(taking meds today and usually on days)will get urinalysis with c & s, bmp and cbc todaywill wait for results before adjusting meds 03/16 refused labs and ua positive as below contdepako te 125 mg po tidtopamax 50 mg po bidcontinu e supportive caremonito r for behaviorsp sych to follow Acute cystitis 12011028 N30.00 03/14/24: urinalysis shows:>100 ,000 postive nitrates and leukocytes . Also shows epithelial cells but due to clinical symptoms sensitive to cipro.due to clinical symptoms will give extended course03/16 start cipro 250 mg po bid x 5 days with probiotic po bid x5 daysmonito r for clinical improvemen t and compliance [id number] Lauren Romero NP [facility] [address] 03/28/2024 12:47:07 04/03/2024 14:46:11 Acute cystitis 76414819 N30.00 03/14/24: urinalysis shows:>100 ,000 postive nitrates and leukocytes with culture sensitive to cipro.03/16 start cipro 250 mg po bid x 5 days with probiotic po bid x5 daysseems resolved and behaviors improvingm onitor for clinical improvemen t and compliance . Dementia 69364264 F02.B3 baseline dementia with behaviors on 03/08/24: clinical psychologist private practice rec to decrease seroquel to 25 mg po bid she continues to refuse labs and ua positive as above contdepako te 125 mg po tidtopamax 50 mg po bidcontinu e supportive caremonito r for behaviorsp sych to follow Aphthous u lcer of mouth 455095927 K12.0 pt with long standing ulcer in mouth(? likely from biting and grinding)c ont orders forincreas e bid mouth care and chlorhexid ine swab bidwill continue Atrial fibrillation 4943 6004 I48.19 bp and hr stablecont xarelto 20 mg qdatenolol 50 mg qdmonitor for rate control Essential hypertension 15644564 I10 bp and hr stablecont atenolol 50 mg qdmonitor bp and need to titrate [id number] Lauren Romero NP [facility] [address] [address] 04/27/2024 10:40:58 05/01/2024 09:44:30 Dementia 84594853 F02.B3 baseline dementia with behaviorss eroquel to 25 mg po bid, refusing meds at timescontd epakote 125 mg po tidtopamax 50 mg po bidcontinu e supportive caremonito r for behaviorsp sych to follow Hypokalemia 56185570 E87 .6 pt with ? hypokalemi a and result of 3.1 as above, unclear if this is true result as specimen clotted and all of blood work not able to be processed. If clotted specimen might result in navya potassium? 04/27 will order 20 meq potassium and potassium rich diet today04/27 recheck labs on tuesday, pt is agreeable [id number] Lauren Romero NP [facility] [address] [address] 05/16/2024 09:37:39 05/17/2024 11:10:24 Intertrigo 91005727 L30.4 rash to breast and abd mostly resolvedny statin powder bid x 4 days and prn until healedmoni tor [id number] Lauren Romero NP [facility] [address] 07/05/2024 12:47:46 07/06/2024 11:30:29 Dementia 48937755 F02.B3 baseline dementia with behaviors often refusing meds or carecontqu etiapine 25 mg biddepakot e 125 mg po tidtopamax 50 mg po bidcontinu e supportive caremonito r for behaviorsp sych to follow Atrial fibrillation 4943 6004 I48.19 bp and hr stablecont xarelto 20 mg qdatenolol 50 mg qdmonitor for rate control Essential hypertension 13423490 I10 stablecont atenolol 50 mg qdmonitor bp and need to titrate Aphthous u lcer of mouth 137640381 K12.0 pt with long standing ulcer in mouth(? likely from biting and grinding)c ont orders forchlorhe xidine swab bidwill continue [id number] Lauren Romero NP [facility] [address] 08/03/2024 08:23:22 08/06/2024 16:07:04 Dementia 55255193 F02.B3 baseline dementia with behaviors often refusing meds or care and occ hallucinat ions/delus ions at baselineco ntquetiapi ne 25 mg biddepakot e 125 mg po tidtopamax 50 mg po bidcontinu e supportive caremonito r for behaviorsp sych to follow Atrial fibrillation 4943 6004 I48.19 bp and hr stablecont xarelto 20 mg qdatenolol 50 mg qdmonitor for rate control Essential hypertension 62233366 I10 stablecont atenolol 50 mg qdmonitor bp and need to titrate Aphthous u lcer of mouth 513083432 K12.0 pt with long standing ulcer in mouth(? likely from biting and grinding)c ont orders forchlorhe xidine swab bidgood oral hygienewil l continue Obesity 173247496 E66.9 has lost approx 22 lbs in the last year, seems to be a good weight lossweight stable at 198 lbs for the last 3 monthswill monitor monthly weights for changes Seizure disorder 7766279 02 G40.802 divalproex level 18 624divalp roex level 26 3//24diva lproex level 19 04/30/24no sz. activity in a long time, so will not increase dosecontdi valporex 125 mg tidtopiram ate 50 mg bidmonitor sz. 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 hx CVA: dependent on most adl care with hx of cva and weakness ASA 81 mg daily atorvastat in 40 mg daily Pain of ri ght knee region 2248131738 27345 M25.561 hx of knee surgery right in past12/13 lidocaine patch to right knee prn q 24 pain and cont tyl prn12/13 refuses pain consult or other meds to be scheduledm onitor Chronic pain 68852572 G8 9.29 hx of knee surgery right in past and occ neck painoveral l, feels it is controlled , but occ sore12/13 lidocaine patch to right knee prn q 24 pain and cont tyl prn12/13 refuses pain consult or other meds to be scheduledc ont muscle rub cream to neck prnmonitor [id number] Lauren Romero NP [address] [address] 09/07/2024 13:32:17 09/10/2024 16:32:08 Dementia 69209959 F02.B3 baseline dementia with behaviors often refusing meds or care and occ hallucinat ions/delus ions at baselineco ntquetiapi ne 25 mg tiddepakot e 125 mg po tidtopamax 50 mg po bidcontinu e supportive caremonito r for behaviorsp sych to follow Cerebrovas cular accident 788431326 Z86.79 hx CVA: dependent on most adl care with hx of cva and weakness gurmeet ASA 81 mg daily atorvastat in 40 mg daily Seizure disorder 6668932 02 G40.802 divalproex level 18 6/24divalp roex level 26 3/6/24diva lproex level 19 24no sz. activity in a long time, so will not increase dosecontdi valporex 125 mg tidtopiram ate 50 mg bidmonitor sz. activitymo nitor level q 6 months as she tolerates Atrial fibrillation 4943 6004 I48.19 stablecont xarelto 20 mg qdatenolol 50 mg qdmonitor for rate control Essential hypertension 73328150 I10 stablecont atenolol 50 mg qdmonitor bp and need to titrate Aphthous u lcer of mouth 166058441 K12.0 pt with long standing ulcer in mouth(? likely from biting and grinding)r esolvingco nt orders forchlorhe xidine swab bidgood oral hygienewil l continue Obesity 546206806 E66.9 has lost some weight >20 lbs this yearweight stable at 185 lbswill monitor monthly weights for changes and need to add supplement s Chronic pain 18487927 G8 9.29 hx of knee surgery right in past and occ neck painoveral l, feels it is controlled , but occ sorecontli docaine patch to right knee prn q 24 paintyl prnmuscle rub cream to neck prnmonitor Mixed anxi ety and depressive disorder 402117624 F41.8 conttopira mate 50 mg biddivalpr oex 125 mg tidquetiap ine 25 mg po tidsertral ine 25 mg dailywill monitor [id number] Lauren [facility]ero [facility] [address] [address] 09/26/2024 15:31:19 09/28/2024 13:21:28 Breast lump 67097560 N63.0 2/5 with hx of breast lumps per sister, all benign chest xray for right breast massper family hcp sister, no aggressive measures and agrees with cxr to see extent.no consults, no outpt visit/test s, biopsies2/ 5 start tramadol 50 mg po q 6 hours prn paincont tyl prn pain [id number] Lauren Romero [facility] [address] [address] 10/01/2024 14:36:25 10/02/2024 13:56:35 Breast lump 48021437 N63.0 2/5 with hx of breast lumps per sister, all benign chest xray for right breast massper family hcp sister, no aggressive measures and agrees with cxr to see extent.no consults, no outpt visit/test s, biopsies2/ 5 start tramadol 50 mg po q 6 hours prn pain2/10 add tramadol 50 mg po additional dose if no relief in one hour for pain x 1o dayscont tyl prn pain Ankle pain 928805781 M25 .579 2/10left ankle swelling and painno known injuryxray to left ankle 2 views ro fractureic e prnelevate as toleratedc ont tramadol 50 mg po q 6 hrs and2/10 add additional 50 mg po prn if prn dose not effective within one hour x 10 daymonitor for s/s of infection Health Concerns Section Related Observation LastModified by Organization Detai ls LastModified Time None Recorded Concern Status LastModified by Organization Details LastModified Time None Recorded Advance Directives Directive Y: DNR/DNI; ok for NIV; ok t o transfer to hospital; no dialysis; no artificial nutrition; ok for short-term artificial hydration Payers Encounter Date Sequence Insurance Name Policy Number Policy Montes Covered Member ID Montes Member ID Guarantor Name 07/05/2024 1 [place] [employer] Wilda A Andrew [id number] Wilda Andrew 07/05/2024 2 [place] [facility] Wilda Taverasolph [id number] Wilda Preston 08/03/2024 1 [place] [employer] Wilda A Preston [id number] Wilda Andrew 08/03/2024 2 [place] [facility] Wilda Andrew [id number] Wilda Preston 09/07/2024 1 [place] [employer] Wilda A Preston [id number] Wilda Preston 09/07/2024 2 [place] [facility] Wilda Preston [id number] Wilda Preston 09/26/2024 1 [place] [employer] Wilda A Preston [id number] Wilda Preston 09/26/2024 2 [place] [facility] Wilda Andrew [id number] Wilda Taverasolph 10/01/2024 1 [place] [facility] Wilda Morales [id number] Wilda Morales 10/01/2024 2 [place] [facility] Wilda Morales [id number] Wilda Morales Notes Date Note Type Note Provider Name and Address Organization Details Recorded Time 07/05/2024 text/html Wilda is an 78 yo female LTC resident today for a routine rounding visit. PMH significant for dementia, htn In April she was given potassium repletion for a k of 3.1. Labs redrawn and stable.Per nursing she stills continues with intermittent refusals. On occassion, She has been having delusions and hallucinations however not today. She is seen lying in bed in NAD and smiling. She is upset about the room being warm and heat is turned down.Overall, she is alert and states she is doing just fine . She has lost 5 lbs in the last month, but remains at 198 lbs and will monitor going forward. Some weight loss may be beneficial. Lauren Romero, [facility] [address] [facility], [address], [place], [address], [facility] [employer] 07/05/2024 13:03:51 08/03/2024 text/html Wilda is an 79 yo female LTC resident today for an annual visit. PMH significant for dementia, htn On 11/29 she had a red right eye treated with erythromycin oint and resolved. On 03/08 she had her seroquel decreased to 25 mg po bid per psych recommendation. On 03/16 Her urine showed greater than >100,000 postive nitrates and leukocytes and completed cipro. Cath specimen culture shows susceptible to cipro. She had increased delusions, hallucinations, and refusals of meds. In April she was given potassium repletion for a k of 3.1. Labs redrawn and stable. Per nursing she stills continues with intermittent refusals. On occassion, She has been having delusions and hallucinations however not today. On exam, she is seen lying in bed in NAD and smiling. She is waiting for breakfast and more alert and talkative than usual, having a good day . She states her right knee intermittent bothers her. She has notable old scars to the knee well healed. She does not walk, is a gurmeet lift and often refuses to get out of bed. Today she refuses any meds or pain management consult for her knee. She is williing to trial a lidocaine patch as needed for when the knee acts up. Overall, she is stable. She did have a notable weight loss of 24 lbs this year. This may be beneficial as she is 198 lbs and was 222 lbs last year. Her weight is stable over the last three months. Lauren Romero, [facility]ING [address] [facility], [address], [place], [address], [facility] [employer] [facility] 08/03/2024 08:45:24 09/07/2024 text/html Pt is an 79 yo female LTC resident today for a routine rounding visit. PMH significant for dementia, htn Wilda remains on a slow decline with hallucinations and refusals of meds, labs, and care at times. She was seen last by applied psychology chair on 08/20 with no new recommendations. On exam, She is alert and pleasantly confused today in NAD. She has no concerns today. Overall, having some weight loss and is 185 lbs, which is approx the same as last month with overall weight loss in the year. Will monitor as some weight loss can be beneficial. Lauren Romero, [facility]ING [address] [facility], [address], [place], [address], [facility] [employer] [facility] 09/08/2024 17:52:13 09/26/2024 text/html Pt is seen for a n acute visit regarding nursing concerns for pt complaint of right breast lump today. PMH significant for dementia, htn, afib, cva, depression with psychotic features, obesity, and seizures Large golf ball sized rubbery lump at 1200 oclock with dimpling to right breast. Skin intact. No redness, warmth, or infection noted. Eva remains confused at baseline and states it bothers her sometimes. Even in her confused state she states I don't want to leave here or my bed . She states it doesn't hurt now but did over the weekend cause I was dealing with idiots . 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 Sister, HCP called and she reports no aggressive measures, outpt visits or surgery needed. She is agreeable to chest xray in house only to peggy lump and extent of disease today. Mammography not available here. Plan to add tramadol for pain prn. Lauren Romero NP [address] [facility], [address], [place], [address], [facility] [employer] 09/26/2024 16:10:55 10/01/2024 text/html Pt is seen for a n acute visit. PMH significant for dementia, htn, afib, cva, depression with psychotic features, obesity, and seizures She is seen for left ankle swelling and pain. She does not follow commands to move ankle and confused at baseline. No obvious bruising noted. Ankle is swollen and tender however no obvious injury. No injury noted per nursing. Wilda states she fell last night and got back up and into bed last night. It seems this is unlikely as she is bedbound and has not walked or stood in a long time. She received tramadol 50 at 1200 per nurse and still sore. A Large golf ball sized rubbery lump at 1200 oclock with dimpling to right breast. Skin intact. No redness, warmth, or infection noted was evaluated with a cxr and no acute disease or obvious deformity noted on xray. Per family no additional workup needed. Tramadol ordered for pain prn q 6 hours last week. Lauren Romero NP [address] [facility], [address], [place], [address], [facility] [employer] 10/01/2024 15:14:16 OBGyn Episode No OBEpisode recorded.
--- OUTSIDE RECORDS SUMMARY | 2024-10-02 15:12 | XMS_ITS | Continuity of Care Document ---
Author Organization [facility], [facility] Address [address] [place] [address] Care Team Providers Care Mixing Operator Name Role Phone [facility] OTHER Assessment No assessment [...] gait Active 2019 Elton Charles MD [address], [address], [place], [address], [facility] 0 13:48:14 Hypothyroidism 12404433 Active 2020 BRAXTON BERNSTEIN [address], [address], [place], [address], [facility] 1 10:54:46 Fall Active 2020 BRAXTON BERNSTEIN [address], [address], [place], [address], [facility] 1 21:11:30 Mixed anxiety and depressive disorder 408901710 Active 2020 BRAXTON BERNSTEIN [address], [address], [place], [address], [facility] 1 21:17:00 Subarachnoid hemorrhage due to traumatic injury 168376420 Active 2020 BRAXTON BERNSTEIN [address], [address], [place], [address], [facility] 1 21:19:57 Postconcussion syndrome 66417143 Active 2020 BRAXTON BERNSTEIN [address] [facility], [address], [place], [address], [facility] 1 19:44:12 Pain in right knee Active 2020 KAY BERNSTEINP [address] [facility], [address], [place], [address], [facility] 1 17:35:06 Arthritis 9448478 Active 2021 BRAXTON BERNSTEIN [address] [facility], [address], [place], [address], [facility] 2 08:09:01 Chronic insomnia 663552362 Active 2021 BRAXTON BERNSTEIN [address] [facility], [address], [place], [address], [facility] 2 12:33:07 Atrial fibrillation 65955338 Active [address] [place] [address], [address], [place], [address], [facility] 9 08:53:30 Cerebrovascula r accident 995550945 Active 2018 MICKI MILIAN [address] [place] [address], [address], [place], [address], [facility] 9 08:53:35 Seizure disorder 085594118 Active [address] [place] [address], [address], [place], [address], [facility] 9 08:54:40 Dementia 50769469 Active [address], [address], [place], [address], [facility] 9 09:00:49 Essential hypertension 55154581 Active [address], [address], [place], [address], [facility] 9 09:00:56 Obesity 564782858 Active 2018 MICKI MILIAN [address] [facility], [address], [place], [address] [place] [address] Original [facility] 9 09:01:03 Problem Notes None recorded. Medical Equipment None Reported. Allergies Allergen ID Allergen Name Allergen Category Reaction Reaction Severity Criticality Documentation Date Start Date Code Code System Note Provider Name and Address Organization Details Recorded Time 90469 Product containin g penicilli n and antibioti c (product) medicatio n Not available Not available Not available 05/05/2019 48728 05 SNOMED CAN TAKE CEFTI N Not [...] Updated DateTime 5 165.1 cm 33.6 kg/m2 94591.6 6 g 70 /min 18 /min 97.6 [degF] 98 % 98 % 132 mm[Hg] 80 mm[Hg] Lauren Romero NP [address] [facility], [address], [place], [address], [facility] 5 15:32:09 Social History Question Answer Notes LastModified by Organizat ion Details LastModified Time Tobacco Smoking Status Never Smoker Not Available [facility] 06/17/2020 03:13:20 Do You Have An Advance Directive? Yes DNR/DNI; Ok For NIV; Ok To Transfer To Hospital; No Dialysis; No Artificial Nutrition; Ok For Short-term Artificial Hydration [email or web address] Information not available 09/03/2022 What Is Your Level Of Alcohol Consumption? None [id number] Information not available 06/17/2020 How Much Tobacco Do You Chew? None [id number] Information not available 06/17/2020 What Is Your Code Status? DNR/DNI [facility] Information not available 07/02/2022 Do You Or Have You Ever Used E-cigarettes Or Vape? Never Used Electronic Cigarettes [id number] Information not available 06/17/2020 Where Do You Live? [facility] [place] Information not available 07/02/2022 Legal Guardian? No Informati on not available 07/02/2022 Do You Have A Medical Power Of Metalizing Supervisor? Yes Valid Copy In PCC; Previously Invoked [email or web address] Information not available 09/03/2022 What Was The Date Of Your Most Recent Tobacco Screening? 08/31/2022 [email or web address] Information not available 09/03/2022 Do You Have An Out Of Hospital DNR? Yes Information not available 07/02/2022 Do You Or Have You Ever Used Smokeless Tobacco? Never Used Smokeless Tobacco [id number] Information not available 06/17/2020 How Much Tobacco Do You Smoke? No [id number] Information not available 06/17/2020 Do You Use [...] Details LastModified Time Unspecified Relation Essential hypertension [email or web address] Not available 14:44:08 Unspecified Relation Complication of anesthesia [email or web address] Not available 09/03 14:50:42 Medical History No medical history recorded. Gynecological HistoryNo gynecological history recorded. Obstetrics History GPAL:G 0 P 0 0 0 0 Immunizations Vaccine Type Date Status Note Provider Nam e and Address Organization Details Recorded Time COVID-19, mRNA, LNP-S, PF, 30 mcg/0.3 mL dose 1 completed JASMINE GARCIA PA-C [address] [facility], [address], [place], [address], [facility] 09/03/2022 14:26:00 Influenza, adjuvanted, quadrivalent, PF 2 completed Sara griffith, [facility] 10/11/2023 08:11:48 COVID-19, mRNA, LNP-S, PF, 30 mcg/0.3 mL dose 1 completed LIZANDRO BRAXTON YU [address] [facility], [address], [place], [address], [facility] 10/21/2020 17:26:27 COVID-19, mRNA, LNP-S, PF, 30 mcg/0.3 mL dose 1 completed BRAXTON BERNSTEIN [address] [facility], [address], [place], [address], [facility] 10/21/2020 17:26:39 Influenza, split virus, quadrivalent, preservative 0 completed LIZANDROBRAXTON RAMSEY [address] [facility], [address], [place], [address], [facility] 10/21/2020 17:26:55 Past Encounters Encounter ID Performer Location Encounter Start Date Encounter Closed Date Diagnosis/Indication Diagnosis SNOMED-CT Code Diagnosis ICD10 Code Diagnosis Note [id number] [facility] [address] 09/07/2024 13:32:17 09/10/2024 16:32:08 Dementia 23933412 F02.B3 baseline dementia with behaviors often refusing meds or care and occ hallucinat ions/delus ions at baselineco ntquetiapi ne 25 mg tiddepakot e 125 mg po tidtopamax 50 mg po bidcontinu e supportive caremonito r for behaviorsp sych to follow Cerebrovas cular accident 885513758 Z86.79 hx CVA: dependent on most adl care with hx of cva and weakness gurmeet ASA 81 mg daily atorvastat in 40 mg daily Seizure disorder 6365172 02 G40.802 divalproex level 18 02/12divalp roex level 26 10/26/23diva lproex level 19 04/30/24no sz. activity in a long time, so will not increase dosecontdi valporex 125 mg tidtopiram ate 50 mg bidmonitor sz. activitymo nitor level q 6 months as she tolerates Atrial fibrillation 4943 6004 I48.19 stablecont xarelto 20 mg qdatenolol 50 mg qdmonitor for rate control Essential hypertension 38656703 I10 stablecont atenolol 50 mg qdmonitor bp and need to titrate Aphthous u lcer of mouth 008790104 K12.0 pt with long standing ulcer in mouth(? likely from biting and grinding)r esolvingco nt orders forchlorhe xidine swab bidgood oral hygienewil l continue Obesity 541850985 E66.9 has lost some weight >20 lbs this yearweight stable at 185 lbswill monitor monthly weights for changes and need to add supplement s Chronic pain 57350630 G8 9.29 hx of knee surgery right in past and occ neck painoveral l, feels it is controlled , but occ sorecontli docaine patch to right knee prn q 24 paintyl prnmuscle rub cream to neck prnmonitor Mixed anxi ety and depressive disorder 925996053 F41.8 conttopira mate 50 mg biddivalpr oex 125 mg tidquetiap ine 25 mg po tidsertral ine 25 mg dailywill monitor [id number] [facility] [address] [address] 09/26/2024 15:31:19 09/28/2024 13:21:28 Breast lump 04124527 N63.0 2/ with hx of breast lumps per sister, all benign chest xray for right breast massper family hcp sister, no aggressive measures and agrees with cxr to see extent.no consults, no outpt visit/test s, biopsies2/ start tramadol 50 mg po q 6 hours prn paincont tyl prn pain Health Concerns Section Related Observation LastModified by Organization Detai ls LastModified Time None Recorded Concern Status LastModified by Organization Details LastModified Time None Recorded Payers Encounter Date Sequence Insurance Name Policy Number Policy Montes Covered Member ID Montes Member ID Guarantor Name 09/26/2024 1 [place] [employer] Wilda Morales [id number] Wilda Morales 09/26/2024 2 [place] [facility] Wilda Morales [id number] Wilda Morales Notes Date Note Type Note Provider Name and Address Organization Details Recorded Time 09/26/2024 text/html Pt is seen for a [...] to add tramadol for pain prn. Lauren Romero, TSERING [address] [facility], [address], [place], [address], [facility] - [facility] 09/26/2024 16:10:55 OBGyn Episode No OBEpisode recorded.
--- OUTSIDE RECORDS SUMMARY | 2024-10-02 15:12 | XMS_ITS | Continuity of Care Document ---
Author Organization [facility], [facility] Address [address] [place] [address] Care Team Providers Care Insert Molding Operator Name Role Phone [facility] [...] gait Active 2019 Elton Charles MD [address], [address], [place], [address], [facility] [employer] 0 13:48:14 Hypothyroidism 69848405 Active 2020 BRAXTON BERNSTEIN [address], [address], [place], [address], [facility] [employer] [facility] 1 10:54:46 Fall Active 2020 BRAXTON BERNSTEIN [address], [address], [place], [address], [facility] [employer] [facility] 1 21:11:30 Mixed anxiety and depressive disorder 629451753 Active 2020 BRAXTON BERNSTEIN [address], [address], [place], [address], [facility] 1 21:17:00 Subarachnoid hemorrhage due to traumatic injury 256416924 Active 2020 BRAXTON BERNSTEIN [address], [address], [place], [address], [facility] 1 21:19:57 Postconcussion syndrome 64827697 Active 2020 BRAXTON BERNSTEIN [address] [facility], [address], [place], [address], [facility] 1 19:44:12 Pain in right knee Active 2020 KAY BERNSTEINP [address] [facility], [address], [place], [address], [facility] 1 17:35:06 Arthritis 8820000 Active 2021 BRAXTON BERNSTEIN [address] [facility], [address], [place], [address], [facility] 2 08:09:01 Chronic insomnia 927281481 Active 2021 BRAXTON BERNSTEIN [address] [facility], [address], [place], [address], [facility] 2 12:33:07 Atrial fibrillation 10720026 Active [address] [place] [address], [address], [place], [address], [facility] 9 08:53:30 Cerebrovascula r accident 775002698 Active 2018 MICKI MILIAN [address] [place] [address], [address], [place], [address], [facility] 9 08:53:35 Seizure disorder 843007124 Active [address] [place] [address], [address], [place], [address], [facility] 9 08:54:40 Dementia 95617655 Active [address], [address], [place], [address], [facility] 9 09:00:49 Essential hypertension 11598599 Active [address], [address], [place], [address], [facility] 9 09:00:56 Obesity 453130248 Active 2018 MICKI MILIAN [address] [facility], [address], [place], [address] , [facility] [address] [facility] 9 09:01:03 Problem Notes None recorded. Medical Equipment None Reported. Allergies Allergen ID Allergen Name Allergen Category Reaction Reaction Severity Criticality Documentation Date Start Date Code Code System Note Provider Name and Address Organization Details Recorded Time 11114 Product containin g penicilli n and antibioti c (product) medicatio n Not available Not available Not available 05/05/2019 06796 05 SNOMED CAN TAKE CEFTI N Not [...] Updated DateTime 5 165.1 cm 30.8 kg/m2 40003.5 9 g 74 /min 18 /min 98 [degF] 98 % 98 % 124 mm[Hg] 74 mm[Hg] Lauren Romero NP [address] [facility], [address], [place], [address], [facility] [address] [facility] 5 17:40:36 Social History Question Answer Notes LastModified by Organizat ion Details LastModified Time Tobacco Smoking Status Never Smoker Not Available [facility] 06/17/2020 03:13:20 Do You Have An Advance Directive? Yes DNR/DNI; Ok For NIV; Ok To Transfer To Hospital; No Dialysis; No Artificial Nutrition; Ok For Short-term Artificial Hydration Information not available 09/03/2022 What Is Your Level Of Alcohol Consumption? None [id number] Information not available 06/17/2020 How Much Tobacco Do You Chew? None [id number] Information not available 06/17/2020 What Is Your Code Status? DNR/DNI [facility] Information not available 07/02/2022 Do You Or Have You Ever Used E-cigarettes Or Vape? Never Used Electronic Cigarettes [id number] Information not available 06/17/2020 Where Do You Live? [facility] Information not available 07/02/2022 Legal Guardian? No Informati on not available 07/02/2022 Do You Have A Medical Power Of Supply Room Clerk? Yes Valid Copy In PCC; Previously Invoked [email or web address] Information not available 09/03/2022 What Was The Date Of Your Most Recent Tobacco Screening? 08/31/2022 [email or web address] Information not available 09/03/2022 Do You Have An Out Of Hospital DNR? Yes Information not available 07/02/2022 Do You Or Have You Ever Used Smokeless Tobacco? Never Used Smokeless Tobacco [id number] Information not available 06/17/2020 How Much Tobacco Do You Smoke? No [id number] Information not available 06/17/2020 Do You Use [...] Details LastModified Time Unspecified Relation Essential hypertension [email or web address] Not available 14:44:08 Unspecified Relation Complication of anesthesia [email or web address] Not available 09/03 14:50:42 Medical History No medical history recorded. Gynecological HistoryNo gynecological history recorded. Obstetrics History GPAL:G 0 P 0 0 0 0 Immunizations Vaccine Type Date Status Note Provider Nam e and Address Organization Details Recorded Time COVID-19, mRNA, LNP-S, PF, 30 mcg/0.3 mL dose 1 completed JASMINE GARCIA PA-C [address] [facility], [address], [place], [address], [facility] 09/03/2022 14:26:00 Influenza, adjuvanted, quadrivalent, PF 2 completed Sara girffith, [facility] [address] [facility] 10/11/2023 08:11:48 COVID-19, mRNA, LNP-S, PF, 30 mcg/0.3 mL dose 1 completed BRAXTON BERNSTEIN [address] [facility], [address], [place], [address], [facility] 10/21/2020 17:26:27 COVID-19, mRNA, LNP-S, PF, 30 mcg/0.3 mL dose 1 completed BRAXTON BERNSTEIN [address] [facility], [address], [place], [address], [facility] 10/21/2020 17:26:39 Influenza, split virus, quadrivalent, preservative 0 completed BRAXTON BERNSTEIN [address] [facility], [address], [place], [address], [facility] 10/21/2020 17:26:55 Past Encounters Encounter ID Performer Location Encounter Start Date Encounter Closed Date Diagnosis/Indication Diagnosis SNOMED-CT Code Diagnosis ICD10 Code Diagnosis Note [id number] Lauren Romero NP [address] [address] 09/07/2024 13:32:17 09/10/2024 16:32:08 Dementia 83335103 F02.B3 baseline dementia with behaviors often refusing meds or care and occ hallucinat ions/delus ions at baselineco ntquetiapi ne 25 mg tiddepakot e 125 mg po tidtopamax 50 mg po bidcontinu e supportive caremonito r for behaviorsp sych to follow Cerebrovas cular accident 250803416 Z86.79 hx CVA: dependent on most adl care with hx of cva and weakness gurmeet ASA 81 mg daily atorvastat in 40 mg daily Seizure disorder 7725900 02 G40.802 divalproex level 18 02/12divalp roex level 26 10/26/23diva lproex level 19 04/30/24no sz. activity in a long time, so will not increase dosecontdi valporex 125 mg tidtopiram ate 50 mg bidmonitor sz. activitymo nitor level q 6 months as she tolerates Atrial fibrillation 4943 6004 I48.19 stablecont xarelto 20 mg qdatenolol 50 mg qdmonitor for rate control Essential hypertension 21947182 I10 stablecont atenolol 50 mg qdmonitor bp and need to titrate Aphthous u lcer of mouth 158836172 K12.0 pt with long standing ulcer in mouth(? likely from biting and grinding)r esolvingco nt orders forchlorhe xidine swab bidgood oral hygienewil l continue Obesity 564359545 E66.9 has lost some weight >20 lbs this yearweight stable at 185 lbswill monitor monthly weights for changes and need to add supplement s Chronic pain 05839773 G8 9.29 hx of knee surgery right in past and occ neck painoveral l, feels it is controlled , but occ sorecontli docaine patch to right knee prn q 24 paintyl prnmuscle rub cream to neck prnmonitor Mixed anxi ety and depressive disorder 306754058 F41.8 conttopira mate 50 mg biddivalpr oex 125 mg tidquetiap ine 25 mg po tidsertral ine 25 mg dailywill monitor Health Concerns Section Related Observation LastModified by Organization Detai ls LastModified Time None Recorded Concern Status LastModified by Organization Details LastModified Time None Recorded Payers Encounter Date Sequence Insurance Name Policy Number Policy Montes Covered Member ID Montes Member ID Guarantor Name 09/07/2024 1 [place] [employer] Wilda Chairez Andrew [id number] Wilda Morales 09/07/2024 2 [place] [facility] Wilda Morales [id number] Wilda Morales Notes Date Note Type Note Provider Name and Address Organization Details Recorded Time 09/07/2024 text/html Pt is an 79 yo female [facility] resident today for a routine rounding visit. PMH significant for dementia, htn Wilda remains on a slow decline with hallucinations and refusals of meds, labs, and care at times. She was seen last by i o psychologist on 08/20 with no new recommendations. On exam, She is alert and pleasantly confused today in NAD. She has no concerns today. Overall, having some weight loss and is 185 lbs, which is approx the same as last month with overall weight loss in the year. Will monitor as some weight loss can be beneficial. Lauren Romero NP [address] [facility], [address], [place], [address], [facility] - [employer] [facility] 09/08/2024 17:52:13 OBGyn Episode No OBEpisode recorded.
--- OUTSIDE RECORDS SUMMARY | 2024-10-02 15:13 | XMS_ITS | Encounter Summary ---
Author Organization [facility] Address [address] [place] [address] Care Team Providers Care Rug Setter Velvet Name Role Phone Elton Charles MD Primary Care Provider [phone] Encounter Details Date Type Department Care Team (Late st Contact Info) Description 09/27/2024 Lab Requisition [facility] - Main Lab [address] [facility] [place] [address] Elton Charles MD [address] [place] [address] [address] [place], [address] Other alf (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; Unspecified atrial fibrillation (CMS/HCC) Social History Tobacco Use Types Packs/Day Years [...] Procedure Name Priority Date/Time Associated Diagnosis Comments LIPID PANEL WITH REFLEX TO DIRECT LDL Routine 09/27/2024 7:28 AM EST Other alf (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 Unspecified atrial fibrillation (CMS/HCC) COMPLETE BLOOD COUNT Routine 09/27/2024 7:28 AM EST Other alf (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 Unspecified atrial fibrillation (CMS/HCC) THYROID STIMULATING HORMONE Routine 09/27/2024 7:28 AM EST Other alf (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 Unspecified atrial fibrillation (CMS/HCC) HEMOGLOBIN A1C Routine 09/27/2024 7:28 AM EST Other crime specialist (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 Unspecified atrial fibrillation (CMS/HCC) COMPREHENSIVE METABOLIC PANEL Routine 09/27/2024 7:28 AM EST Other crime specialist (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 Unspecified atrial fibrillation (CMS/HCC) documented in this encounter Results * Hemoglobin A1c (09/27/2024 7:28 AM EST) [facility] Hemoglobin A1C 5.4 <6.5 % LAB CHEMISTRY METHOD 09/27/2024 2:12 PM EST [facility] Mean Bld Glu Estim. 108 mg/dL LAB CHEMISTRY METHOD 09/27/2024 2:12 PM EST [facility] Blood Venous blood specimen / Unknown Venipuncture / Unknown 09/27/2024 7:28 AM EST 09/27/2024 9:29 AM EST us Elton Charles MD LAB BLOOD ORDERABLES Final Resul t [facility] [address] [place] [address], [place] [phone] * (ABNORMAL) Lipid panel with reflex to direct LDL (09/27/2024 7:28 AM EST) [facility] Cholesterol 94 0 - 200 mg/dL LAB CHEMISTRY METHOD 09/27/2024 10:52 AM [facility] Triglycerides 227(H) 0 - 150 mg/dL LAB CHEMISTRY METHOD 09/27/2024 10:52 AM EST [facility] HDL 25(L) >=40 mg/dL LAB CHEMISTRY METHOD 09/27/2024 10:52 AM [facility] LDL Calculated 24 0 - 100 mg/dL LAB CHEMISTRY METHOD 09/27/2024 10:52 AM EST [facility] VLDL Cholesterol Rudy 45.4 mg/dL LAB CHEMISTRY METHOD 09/27/2024 10:52 AM [facility] Non HDL Chol. (LDL+VLDL) 69 <145 mg/dL LAB CHEMISTRY METHOD 09/27/2024 10:52 AM [facility] Chol/HDL Ratio 3.8 0.0 - 4.4 LAB CHEMISTRY METHOD 09/27/2024 10:52 AM [facility] Blood Venous blood specimen / Unknown Venipuncture / Unknown 09/27/2024 7:28 AM EST 09/27/2024 9:29 AM EST Elton Charles MD LAB BLOOD ORDERABLES Final Resul t Performing Organization Address [facility]/ZIP Co de Phone Number [facility] [address] [place] [address], [place] [phone] * (ABNORMAL) Thyroid stimulating hormone (09/27/2024 7:28 AM EST) TSH 5.90(H) 0.40 - 4.00 mcIU/mL LAB CHEMISTRY METHOD 09/27/2024 11:00 AM [facility] Blood Venous blood specimen / Unknown Venipuncture / Unknown 09/27/2024 7:28 AM EST 09/27/2024 9:29 AM EST Elton Charles MD LAB BLOOD ORDERABLES Final Resul t Performing Organization Address [facility]/ZIP Co de Phone Number [facility] [address] [place] [address], [place] [phone] * (ABNORMAL) Comprehensive metabolic panel (09/27/2024 7:28 AM EST) Sodium 145 133 - 145 mmol/L LAB CHEMISTRY METHOD 09/27/2024 10:52 AM [facility] Potassium 4.0 3.5 - 5.5 mmol/L LAB CHEMISTRY METHOD 09/27/2024 10:52 AM [facility] Chloride 112(H) 96 - 110 mmol/L LAB CHEMISTRY METHOD 09/27/2024 10:52 AM [facility] CO2 28 21 - 32 mmol/L LAB CHEMISTRY METHOD 09/27/2024 10:52 AM [facility] Anion Gap 5 3 - 11 LAB CHEMISTRY METHOD 09/27/2024 10:52 AM [facility] Glucose 88 70 - 100 mg/dL LAB CHEMISTRY METHOD 09/27/2024 10:52 AM [facility] BUN 29(H) 5 - 25 mg/dL LAB CHEMISTRY METHOD 09/27/2024 10:52 AM [facility] Creatinine 0.58 0.50 - 1.10 mg/dL LAB CHEMISTRY METHOD 09/27/2024 10:52 AM [facility] eGFR 91 >=60 mL/min/1. 73m2 LAB CHEMISTRY METHOD 09/27/2024 10:52 AM [facility] Comment:Calculation based on the??Chronic Kidney Disease Epidemiology Collaboration (CKD-EPI) equation refit??without adjustment for race. BUN/Creatinine Ratio 50.0 LAB CHEMISTRY METHOD 09/27/2024 10:52 AM [facility] Calcium 8.3(L) 8.5 - 10.5 mg/dL LAB CHEMISTRY METHOD 09/27/2024 10:52 AM [facility] AST (SGOT) 13 10 - 42 unit/L LAB CHEMISTRY METHOD 09/27/2024 10:52 AM [facility] ALT (SGPT) 17 10 - 60 unit/L LAB CHEMISTRY METHOD 09/27/2024 10:52 AM [facility] Alkaline Phosphatase 53 42 - 121 unit/L LAB CHEMISTRY METHOD 09/27/2024 10:52 AM [facility] Total Protein 5.4(L) 6.0 - 8.0 g/dL LAB CHEMISTRY METHOD 09/27/2024 10:52 AM [facility] Albumin 2.4(L) 3.2 - 5.0 g/dL LAB CHEMISTRY METHOD 09/27/2024 10:52 AM [facility] Total Bilirubin 0.3 0.0 - 1.4 mg/dL LAB CHEMISTRY METHOD 09/27/2024 10:52 AM [facility] Blood Venous blood specimen / Unknown Venipuncture / Unknown 09/27/2024 7:28 AM EST 09/27/2024 9:29 AM EST us Elton Charles MD LAB BLOOD ORDERABLES Final Resul t [facility] [address] [place] [address], * (ABNORMAL) Complete blood count (09/27/2024 7:28 AM EST) WBC 5.7 4.8 - 10.8 K/mcL LAB HEMETOLOGY METHOD 09/27/2024 11:43 AM [facility] RBC 3.40(L) 3.80 - 4.80 M/[facility] LAB HEMETOLOGY METHOD 09/27/2024 11:43 AM [facility] Hemoglobin 10.3(L) 11.5 - 16.0 g/dL LAB HEMETOLOGY METHOD 09/27/2024 11:43 AM [facility] Hematocrit 31.9(L) 35.0 - 47.0 % LAB HEMETOLOGY METHOD 09/27/2024 11:43 AM [facility] MCV 93.0 79.0 - 98.0 FL LAB HEMETOLOGY METHOD 09/27/2024 11:43 AM [facility] MCH 30.0 27.0 - 32.0 pcg LAB HEMETOLOGY METHOD 09/27/2024 11:43 AM [facility] MCHC 32.3 32.0 - 37.0 g/dL LAB HEMETOLOGY METHOD 09/27/2024 11:43 AM [facility] RDW 15.1(H) 11.0 - 15.0 % LAB HEMETOLOGY METHOD 09/27/2024 11:43 AM EST [facility] Platelets 173 130 - 400 K/mcL LAB HEMETOLOGY METHOD 09/27/2024 11:43 AM EST [facility] MPV 11.3(H) 7.0 - 11.0 FL LAB HEMETOLOGY METHOD 09/27/2024 11:43 AM EST [facility] NRBC 0.0 <1.0 % LAB HEMETOLOGY METHOD 09/27/2024 11:43 AM EST [facility] NRBC Absolute 0.00 <0.10 K/mcL LAB HEMETOLOGY METHOD 09/27/2024 11:43 AM [facility] Blood Venous blood specimen / Unknown Venipuncture / Unknown 09/27/2024 7:28 AM EST 09/27/2024 9:29 AM EST us Elton Charles MD LAB BLOOD ORDERABLES Final Resul t [facility] [address] [place] [address], documented in this encounter Visit Diagnoses Diagnosis Other alf (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 Unspecified atrial fibrillation (CMS/HCC) documented in this encounter Care Teams Rug Setter Velvet Relationship Specialty Start Date End Date Elton Charles MD [address] [place] [phone] PCP - General Family Medicine 09/19/24 documented as of this encounter
--- OUTSIDE RECORDS SUMMARY | 2024-10-02 15:13 | XMS_ITS | Clinical Summary ---
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; Unspecified atrial fibrillation (CMS/HCC) 09/19/2024 Lab Requisition [facility] Lab [address] [place] [address] Elton Charles MD Other fpc (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 from Last 3 Months Social History Tobacco Use Types Packs/Day Years Used Date Smoking Tobacco: Never Assessed Comments Unknown Sex and Gender Information Value Date Recorded Sex Assigned at Not on file Legal Sex Female 5:18 AM EST Gender Identity Not on file Sexual Orientation Not on file Plan of Treatment Health Maintenance Due Date Last Done Comments DTaP,Tdap,and Td Vaccines (1 - Tdap) 1950 Pneumococcal Vaccine: 50+ Ye ars (1 of 1 - PCV) 1993 Zoster Vaccines (1 of 2) 1993 RSV Immunization Patients 60 + Years Old (1 - 1-dose 75+ series) 2018 Depression Screening 07/25/2022 Falls Risk Assessment 07/25/2022 Medicare Annual Wellness Visit 07/25/2022 Osteoporosis Screening (Bone Density Screening) 07/25/2022 Social Influencers of Health Screening 07/25/2022 COVID-19 Vaccine ( - 2023-2 5 season) 2024 Influenza Vaccine (#1) 2024 Cholesterol Screening (Lipid Panel) 09/27/2029 09/27/2024 HIB Vaccines Aged Out No longer eligi ble based on patient's age to complete this topic HPV Vaccines Aged Out No longer eligi ble based on patient's age to complete this topic Hepatitis A Vaccines Aged Out No long er eligible based on patient's age to complete this topic Hepatitis B Vaccines Aged Out No long er eligible based on patient's age to complete this topic IPV Vaccines Aged Out No longer eligi ble based on patient's age to complete this topic MMR Vaccines Aged Out No longer eligi ble based on patient's age to complete this topic Meningococcal ACWY Vaccine Aged Out N o longer eligible based on patient's age to complete this topic Meningococcal B Vacine Aged Out No lo nger eligible based on patient's age to complete this topic RSV Immunization Patients Un luca 20 months Aged Out No longer eligible b ased on patient's age to complete this topic Varicella Vaccines Aged Out No longer eligible based on patient's age to complete this topic Procedures Procedure Name Priority Date/Time Associated Diagnosis Comments HEMOGLOBIN A1C Routine 09/27/2024 7:28 AM EST 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 Unspecified atrial fibrillation (CMS/HCC) LIPID PANEL WITH REFLEX TO DIRECT LDL Routine 09/27/2024 7:28 AM EST 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 Unspecified atrial fibrillation (CMS/HCC) THYROID STIMULATING HORMONE Routine 09/27/2024 7:28 AM EST Other fpc (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 Unspecified atrial fibrillation (CMS/HCC) COMPREHENSIVE METABOLIC PANEL Routine 09/27/2024 7:28 AM EST 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 Unspecified atrial fibrillation (CMS/HCC) COMPLETE BLOOD COUNT Routine 09/27/2024 7:28 AM EST 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 Unspecified atrial fibrillation (CMS/HCC) VALPROIC ACID LEVEL, TOTAL Routine 09/19/2024 9:03 AM EST Other fpc (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 from Last 3 Months Results * (ABNORMAL) Lipid panel with reflex to direct LDL (09/27/2024 7:28 AM EST) Cholesterol 94 0 - 200 mg/dL LAB CHEMISTRY METHOD 09/27/2024 10:52 AM [facility] Triglycerides 227(H) 0 - 150 mg/dL LAB CHEMISTRY METHOD 09/27/2024 10:52 AM [facility] HDL 25(L) >=40 mg/dL LAB CHEMISTRY METHOD 09/27/2024 10:52 AM [facility] LDL Calculated 24 0 - 100 mg/dL LAB CHEMISTRY METHOD 09/27/2024 10:52 AM [facility] VLDL Cholesterol Rudy 45.4 mg/dL LAB CHEMISTRY METHOD 09/27/2024 10:52 AM [facility] Non HDL Chol. (LDL+VLDL) 69 <145 mg/dL LAB CHEMISTRY METHOD 09/27/2024 10:52 AM [facility] Chol/HDL Ratio 3.8 0.0 - 4.4 LAB CHEMISTRY METHOD 09/27/2024 10:52 AM [facility] Blood Venous blood specimen / Unknown Venipuncture / Unknown 09/27/2024 7:28 AM EST 09/27/2024 9:29 AM EST us Elton Charles MD LAB BLOOD ORDERABLES Final Resul t [facility] [address] [place] [address], * (ABNORMAL) Complete blood count (09/27/2024 7:28 AM EST) Pathologist [facility] WBC 5.7 4.8 - 10.8 K/mcL LAB HEMETOLOGY METHOD 09/27/2024 11:43 AM [facility] RBC 3.40(L) 3.80 - 4.80 M/mcL LAB HEMETOLOGY METHOD 09/27/2024 11:43 AM [facility] Hemoglobin 10.3(L) 11.5 - 16.0 g/dL LAB HEMETOLOGY METHOD 09/27/2024 11:43 AM [facility] Hematocrit 31.9(L) 35.0 - 47.0 % LAB HEMETOLOGY METHOD 09/27/2024 11:43 AM [facility] MCV 93.0 79.0 - 98.0 FL LAB HEMETOLOGY METHOD 09/27/2024 11:43 AM [facility] MCH 30.0 27.0 - 32.0 pcg LAB HEMETOLOGY METHOD 09/27/2024 11:43 AM [facility] MCHC 32.3 32.0 - 37.0 g/dL LAB HEMETOLOGY METHOD 09/27/2024 11:43 AM [facility] RDW 15.1(H) 11.0 - 15.0 % LAB HEMETOLOGY METHOD 09/27/2024 11:43 AM [facility] Platelets 173 130 - 400 K/mcL LAB HEMETOLOGY METHOD 09/27/2024 11:43 AM [facility] MPV 11.3(H) 7.0 - 11.0 FL LAB HEMETOLOGY METHOD 09/27/2024 11:43 AM [facility] NRBC 0.0 <1.0 % LAB HEMETOLOGY METHOD 09/27/2024 11:43 AM [facility] NRBC Absolute 0.00 <0.10 K/mcL LAB HEMETOLOGY METHOD 09/27/2024 11:43 AM [facility] Blood Venous blood specimen / Unknown Venipuncture / Unknown 09/27/2024 7:28 AM EST 09/27/2024 9:29 AM EST us Elton Charles MD LAB BLOOD ORDERABLES Final Resul t [facility] [address] [place] [address], [place] [phone] * (ABNORMAL) Thyroid stimulating hormone (09/27/2024 7:28 AM EST) [facility] TSH 5.90(H) 0.40 - 4.00 mcIU/mL LAB CHEMISTRY METHOD 09/27/2024 11:00 AM EST [facility] Blood Venous blood specimen / Unknown Venipuncture / Unknown 09/27/2024 7:28 AM EST 09/27/2024 9:29 AM EST Elton Charles MD LAB BLOOD ORDERABLES Final Resul t Performing Organization Address [facility]/ZIP Co de Phone Number [facility] [address] [place] [address], [place] [phone] * Hemoglobin A1c (09/27/2024 7:28 AM EST) [facility] Hemoglobin A1C 5.4 <6.5 % LAB CHEMISTRY METHOD 09/27/2024 2:12 PM EST [facility] Mean Bld Glu Estim. 108 mg/dL LAB CHEMISTRY METHOD 09/27/2024 2:12 PM EST [facility] Blood Venous blood specimen / Unknown Venipuncture / Unknown 09/27/2024 7:28 AM EST 09/27/2024 9:29 AM EST Elton Charles MD LAB BLOOD ORDERABLES Final Resul t [facility] [address] [place] [address], [place] [phone] * (ABNORMAL) Comprehensive metabolic panel (09/27/2024 7:28 AM EST) [facility] Sodium 145 133 - 145 mmol/L LAB CHEMISTRY METHOD 09/27/2024 10:52 AM EST [facility] Potassium 4.0 3.5 - 5.5 mmol/L LAB CHEMISTRY METHOD 09/27/2024 10:52 AM [facility] Chloride 112(H) 96 - 110 mmol/L LAB CHEMISTRY METHOD 09/27/2024 10:52 AM [facility] CO2 28 21 - 32 mmol/L LAB CHEMISTRY METHOD 09/27/2024 10:52 AM [facility] Anion Gap 5 3 - 11 LAB CHEMISTRY METHOD 09/27/2024 10:52 AM [facility] Glucose 88 70 - 100 mg/dL LAB CHEMISTRY METHOD 09/27/2024 10:52 AM [facility] BUN 29(H) 5 - 25 mg/dL LAB CHEMISTRY METHOD 09/27/2024 10:52 AM [facility] Creatinine 0.58 0.50 - 1.10 mg/dL LAB CHEMISTRY METHOD 09/27/2024 10:52 AM [facility] eGFR 91 >=60 mL/min/1. 73m2 LAB CHEMISTRY METHOD 09/27/2024 10:52 AM [facility] Comment:Calculation based on the??Chronic Kidney Disease Epidemiology Collaboration (CKD-EPI) equation refit??without adjustment for race. BUN/Creatinine Ratio 50.0 LAB CHEMISTRY METHOD 09/27/2024 10:52 AM [facility] Calcium 8.3(L) 8.5 - 10.5 mg/dL LAB CHEMISTRY METHOD 09/27/2024 10:52 AM [facility] AST (SGOT) 13 10 - 42 unit/L LAB CHEMISTRY METHOD 09/27/2024 10:52 AM [facility] ALT (SGPT) 17 10 - 60 unit/L LAB CHEMISTRY METHOD 09/27/2024 10:52 AM [facility] Alkaline Phosphatase 53 42 - 121 unit/L LAB CHEMISTRY METHOD 09/27/2024 10:52 AM [facility] Total Protein 5.4(L) 6.0 - 8.0 g/dL LAB CHEMISTRY METHOD 09/27/2024 10:52 AM EST [facility] Albumin 2.4(L) 3.2 - 5.0 g/dL LAB CHEMISTRY METHOD 09/27/2024 10:52 AM EST [facility] Total Bilirubin 0.3 0.0 - 1.4 mg/dL LAB CHEMISTRY METHOD 09/27/2024 10:52 AM EST [facility] Blood Venous blood specimen / Unknown Venipuncture / Unknown 09/27/2024 7:28 AM EST 09/27/2024 9:29 AM EST Elton Charles MD LAB BLOOD ORDERABLES Final Resul t Performing Organization Address City/[facility]/ZIP Co de Phone Number [facility] [address] [place] [address], [place] [phone] * (ABNORMAL) Valproic acid level, total (09/19/2024 9:03 AM EST) Valproic Acid, Total 30(L) 50 - 100 mcg/mL LAB CHEMISTRY METHOD 09/19/2024 12:37 PM EST [facility] Blood Venous blood specimen / Unknown Venipuncture / Unknown 09/19/2024 9:03 AM EST 09/19/2024 11:39 AM EST Elton Charles MD LAB BLOOD ORDERABLES Final Resul t [facility] [address] [place] [address], [place] [phone] from Last 3 Months Insurance MEDICARE MEDICAID - [place] Care Teams Travelift Operator Relationship Specialty Start Date End Date Elton Charles MD [address] [facility] [address] [place], [id number] PCP - General Family Medicine 09/19/24
--- OUTSIDE RECORDS SUMMARY | 2024-10-02 15:13 | XMS_ITS | Continuity of Care Document ---
Author Organization [facility], [facility] Address [address] [place] [address] Care Team Providers Care Tube Splicer Name Role Phone [facility] OTHER Assessment No [...] gait Active 2019 Elton Charles MD [address], [address], [place], [address], [facility] M_SOLUTION 0 13:48:14 Hypothyroidism 27879432 Active 2020 BRAXTON BERNSTEIN [address], [address], [place], [address], [facility] M_SOLUTION 1 10:54:46 Fall Active 2020 BRAXTON BERNSTEIN [address], [address], [place], [address], [facility] M_SOL[facility] 1 21:11:30 Mixed anxiety and depressive disorder 819395138 Active 2020 BRAXTON BERNSTEIN [address], [address], [place], [address], [facility] 1 21:17:00 Subarachnoid hemorrhage due to traumatic injury 727758631 Active 2020 BRAXTON BERNSTEIN [address], [address], [place], [address], [facility] 1 21:19:57 Postconcussion syndrome 92245341 Active 2020 BRAXTON BERNSTEIN [address] [facility], [address], [place], [address], [facility] 1 19:44:12 Pain in right knee Active 2020 KAY BERNSTEINP [address] [facility], [address], [place], [address], [facility] 1 17:35:06 Arthritis 5471572 Active 2021 BRAXTON BERNSTEIN [address] [facility], [address], [place], [address], [facility] 2 08:09:01 Chronic insomnia 744938216 Active 2021 BRAXTON BERNSTEIN [address] [facility], [address], [place], [address], [facility] 2 12:33:07 Atrial fibrillation 67563266 Active [address] [place] [address], [address], [place], [address], [facility] 9 08:53:30 Cerebrovascula r accident 042033726 Active 2018 MICKI MILIAN [address] [place] [address], [address], [place], [address], [facility] 9 08:53:35 Seizure disorder 318278221 Active [address] [place] [address], [address], [place], [address], [facility] 9 08:54:40 Dementia 04861763 Active [address], [address], [place], [address], [facility] 9 09:00:49 Essential hypertension 07845063 Active [address], [address], [place], [address], [facility] 9 09:00:56 Obesity 066121796 Active 2018 MICKI MILIAN [address] [facility], [address], [place], [address] [place] [address] [employer] [facility] 9 09:01:03 Problem Notes None recorded. Medical Equipment None Reported. Allergies Allergen ID Allergen Name Allergen Category Reaction Reaction Severity Criticality Documentation Date Start Date Code Code System Note Provider Name and Address Organization Details Recorded Time 59423 Product containin g penicilli n and antibioti c (product) medicatio n Not available Not available Not available 05/05/2019 57007 05 SNOMED CAN TAKE CEFTI N Not [...] Updated DateTime 5 165.1 cm 33.6 kg/m2 75293.6 6 g 70 /min 18 /min 97.6 [degF] 98 % 98 % 132 mm[Hg] 80 mm[Hg] Lauren Romero NP [address] [facility], [address], [place], [address], [facility] M_SOLUTION 5 15:03:33 Social History Question Answer Notes LastModified by Organizat ion Details LastModified Time Tobacco Smoking Status Never Smoker Not Available [facility] 06/17/2020 03:13:20 Do You Have An Advance Directive? Yes DNR/DNI; Ok For NIV; Ok To Transfer To Hospital; No Dialysis; No Artificial Nutrition; Ok For Short-term Artificial Hydration [email or web address] Information not available 09/03/2022 What Is Your Level Of Alcohol Consumption? None [id number] Information not available 06/17/2020 How Much Tobacco Do You Chew? None [id number] Information not available 06/17/2020 What Is Your Code Status? DNR/DNI [facility] Information not available 07/02/2022 Do You Or Have You Ever Used E-cigarettes Or Vape? Never Used Electronic Cigarettes [id number] Information not available 06/17/2020 Where Do You Live? [facility] [place] Information not available 07/02/2022 Legal Guardian? No Informati on not available 07/02/2022 Do You Have A Medical Power Of School Photographer? Yes Valid Copy In PCC; Previously Invoked [email or web address] Information not available 09/03/2022 What Was The Date Of Your Most Recent Tobacco Screening? 08/31/2022 [email or web address] Information not available 09/03/2022 Do You Have An Out Of Hospital DNR? Yes Information not available 07/02/2022 Do You Or Have You Ever Used Smokeless Tobacco? Never Used Smokeless Tobacco [id number] Information not available 06/17/2020 How Much Tobacco Do You Smoke? No [id number] Information not available 06/17/2020 Do You Use [...] Details LastModified Time Unspecified Relation Essential hypertension [email or web address] Not available 14:44:08 Unspecified Relation Complication of anesthesia [email or web address] Not available 09/03 14:50:42 Medical History No medical history recorded. Gynecological HistoryNo gynecological history recorded. Obstetrics History GPAL:G 0 P 0 0 0 0 Immunizations Vaccine Type Date Status Note Provider Nam e and Address Organization Details Recorded Time COVID-19, mRNA, LNP-S, PF, 30 mcg/0.3 mL dose 1 completed JASMINE GARCIA PA-C [address] [facility], [address], [place], [address], [facility] 09/03/2022 14:26:00 Influenza, adjuvanted, quadrivalent, PF 2 completed Sara griffith, [facility] 10/11/2023 08:11:48 COVID-19, mRNA, LNP-S, PF, 30 mcg/0.3 mL dose 1 completed LIZANDRO BRAXTON YU [address] [facility], [address], [place], [address], [facility] 10/21/2020 17:26:27 COVID-19, mRNA, LNP-S, PF, 30 mcg/0.3 mL dose 1 completed BRAXTON BERNSTEIN [address] [facility], [address], [place], [address], [facility] 10/21/2020 17:26:39 Influenza, split virus, quadrivalent, preservative 0 completed LIZANDROBRAXTON RAMSEY [address] [facility], [address], [place], [address], [facility] 10/21/2020 17:26:55 Past Encounters Encounter ID Performer Location Encounter Start Date Encounter Closed Date Diagnosis/Indication Diagnosis SNOMED-CT Code Diagnosis ICD10 Code Diagnosis Note [id number] [facility] [address] 09/07/2024 13:32:17 09/10/2024 16:32:08 Dementia 13128639 F02.B3 baseline dementia with behaviors often refusing meds or care and occ hallucinat ions/delus ions at baselineco ntquetiapi ne 25 mg tiddepakot e 125 mg po tidtopamax 50 mg po bidcontinu e supportive caremonito r for behaviorsp sych to follow Cerebrovas cular accident 082139947 Z86.79 hx CVA: dependent on most adl care with hx of cva and weakness gurmeet ASA 81 mg daily atorvastat in 40 mg daily Seizure disorder 1569435 02 G40.802 divalproex level 18 02/12divalp roex level 26 10/26/23diva lproex level 19 04/30/24no sz. activity in a long time, so will not increase dosecontdi valporex 125 mg tidtopiram ate 50 mg bidmonitor sz. activitymo nitor level q 6 months as she tolerates Atrial fibrillation 4943 6004 I48.19 stablecont xarelto 20 mg qdatenolol 50 mg qdmonitor for rate control Essential hypertension 45690837 I10 stablecont atenolol 50 mg qdmonitor bp and need to titrate Aphthous u lcer of mouth 101534321 K12.0 pt with long standing ulcer in mouth(? likely from biting and grinding)r esolvingco nt orders forchlorhe xidine swab bidgood oral hygienewil l continue Obesity 753783083 E66.9 has lost some weight >20 lbs this yearweight stable at 185 lbswill monitor monthly weights for changes and need to add supplement s Chronic pain 18828805 G8 9.29 hx of knee surgery right in past and occ neck painoveral l, feels it is controlled , but occ sorecontli docaine patch to right knee prn q 24 paintyl prnmuscle rub cream to neck prnmonitor Mixed anxi ety and depressive disorder 603844423 F41.8 conttopira mate 50 mg biddivalpr oex 125 mg tidquetiap ine 25 mg po tidsertral ine 25 mg dailywill monitor [id number] [facility] [address] [address] 09/26/2024 15:31:19 09/28/2024 13:21:28 Breast lump [id number] N63.0 2 with hx of breast lumps per sister, all benign chest xray for right breast massper family hcp sister, no aggressive measures and agrees with cxr to see extent.no consults, no outpt visit/test s, biopsies2/ start tramadol 50 mg po q 6 hours prn paincont tyl prn pain [id number] Lauren Romero NP [facility] [address] 10/01/2024 14:36:25 10/02/2024 13:56:35 Breast lump [id number] N63.0 2 with hx of breast lumps per sister, [...] 1o dayscont tyl prn pain Ankle pain 868451038 M25 .579 2/10left ankle swelling and painno [...] Member ID Montes Member ID Guarantor Name 10/01/2024 1 MEDICARE B-[place]: [employer] Wilda Morales [id number] Wilda Morales 10/01/2024 2 MEDICAID-[place]: [facility] Wilda Morales [id number] Wilda Morales Notes Date Note Type Note Provider Name and Address Organization Details Recorded Time 10/01/2024 text/html Pt is seen for a [...] hours last week. Lauren Romero NP [address] [facility], [address], [place], [address], [facility] 10/01/2024 15:14:16 OBGyn Episode No OBEpisode recorded.
[2024-10-02 16:55] VITALS: BP 135/73; PULSE 81; RESP 14; TEMP 36; O2SAT 98
[2024-10-02 19:51] VITALS: BP 135/73; PULSE 81; RESP 14; TEMP 36; O2SAT 98
== END 2024-10-02 19:53 ==
PROVIDERS: Emergency Provider Emergency Medicine; PCP Family Medicine
DX: S82.892A Other fracture of left lower leg, initial encounter for closed fracture (principal); F03.90 Unspecified dementia, unspecified severity, without behavioral disturbance, psychotic disturbance, mood disturbance, and anxiety; M25.572 Pain in left ankle and joints of left foot; M79.605 Pain in left leg; X58.XXXA Exposure to other specified factors, initial encounter; Y93.9 Activity, unspecified; Y92.9 Unspecified place or not applicable; Y99.8 Other external cause status
CPT/HCPCS: 29515; 73562; 73590; 73610; 99283; 99284

== ENCOUNTER → 2024-10-02 14:04 | Outpatient (BNV) | payer MEDICARE, MEDICAID, SELFPAY | PROVIDERS: Emergency Provider Emergency Medicine; PCP Family Medicine; Visit Provider Radiology Diagnostic Radiology | DX: M25.561 Pain in right knee (principal); M25.572 Pain in left ankle and joints of left foot | CPT/HCPCS: 73562 ==

== ENCOUNTER 2024-10-19 07:14 | Outpatient (REF) | payer MEDICARE, MEDICAID, SELFPAY ==
--- OUTSIDE RECORDS SUMMARY | 2024-10-20 07:17 | XMS_ITS | Data Portability ---
Author Organization [facility], Main Office Address [address] [place] [address] Care Team Providers Care Heart Coordinator Name Role Phone [place] [place] - 4TH [...] gait Active 2019 Elton Charles MD [address], [address], [place], [address], [facility] [employer] 0 13:48:14 Hypothyroidism 01971643 Active 2020 BRAXTON BERNSTEIN [address], [address], [place], [address], [facility] [employer] 1 10:54:46 Fall Active 2020 BRAXTON BERNSTEIN [address], [address], [place], [address], [facility] [employer] 1 21:11:30 Mixed anxiety and depressive disorder 744836682 Active 2020 BRAXTON BERNSTEIN [address], [address], [place], [address], [employer] 1 21:17:00 Subarachnoid hemorrhage due to traumatic injury 069382424 Active 2020 BRAXTON BERNSTEIN [address], [address], [place], [address], [employer] [facility] 1 21:19:57 Postconcussion syndrome 42657966 Active 2020 BRAXTON BERNSTEIN [address] [facility], [address], [place], [address], [facility] 1 19:44:12 Pain in right knee Active 2020 KAY BERNSTEINP [address] [facility], [address], [place], [address], [facility] 1 17:35:06 Arthritis 3530004 Active 2021 BRAXTON BERNSTEIN [address] [facility], [address], [place], [address], [employer] [employer] 2 08:09:01 Chronic insomnia 695457177 Active 2021 BRAXTON BERNSTEIN [address] [facility], [address], [place], [address], [employer] [facility] 2 12:33:07 Atrial fibrillation 82637620 Active [address] [place] [address], [address], [place], [address], [employer] [facility] 9 08:53:30 Cerebrovascula r accident 717978687 Active 2018 MICKI MILIAN [address] [place] [address], [address], [place], [address], [employer] [facility] 9 08:53:35 Seizure disorder 398111555 Active 2018 MICKI MILIAN [address] [place] [address], [address], [place], [address], [facility] 9 08:54:40 Dementia 84047797 Active [address], [address], [place], [address], [facility] 9 09:00:49 Essential hypertension 26355935 Active [address], [address], [place], [address], [employer] [facility] 9 09:00:56 Obesity 582175371 Active 2018 MICKI MILIAN [address] [facility], [address], [place], [address] [facility] [employer] 9 09:01:03 Problem Notes None recorded. Medical Equipment None Reported. Allergies Allergen ID Allergen Name Allergen Category Reaction Reaction Severity Criticality Documentation Date Start Date Code Code System Note Provider Name and Address Organization Details Recorded Time 64918 Product containin g penicilli n (product) medicatio n Not available Not available Not available 05/05/2019 57054 8001 SNOMED CAN TAKE CEFTI N Not Available [...] Updated DateTime 5 165.1 cm 30.8 kg/m2 34478.5 9 g 74 /min 18 /min 98 [degF] 98 % 98 % 124 mm[Hg] 74 mm[Hg] Lauren Romero NP [address] [facility], [address], [place], [address], [employer] 5 17:40:36 Date Recorded Body height Body mass index (BMI) Body weight Heart rate Respiratory rate Body temperature Oxygen saturation Oxygen saturation in Arterial blood by Pulse oximetry Systolic blood pressure Diastolic blood pressure Provider Name and Address Organization Details Last Updated DateTime 5 165.1 cm 33.6 kg/m2 27473.6 6 g 70 /min 18 /min 97.6 [degF] 98 % 98 % 132 mm[Hg] 80 mm[Hg] Lauren Romero NP [address] [facility], [address], [place], [address], [employer] 5 15:32:09 Date Recorded Body height Body mass index (BMI) Body weight Heart rate Respiratory rate Body temperature Oxygen saturation Oxygen saturation in Arterial blood by Pulse oximetry Systolic blood pressure Diastolic blood pressure Provider Name and Address Organization Details Last Updated DateTime 5 165.1 cm 33.6 kg/m2 15744.6 6 g 70 /min 18 /min 97.6 [degF] 98 % 98 % 132 mm[Hg] 80 mm[Hg] Lauren Romero NP [address] [facility], [address], [place], [address], [employer] 5 15:03:33 Date Recorded Body height Body mass index (BMI) Body weight Heart rate Respiratory rate Body temperature Oxygen saturation Oxygen saturation in Arterial blood by Pulse oximetry Systolic blood pressure Diastolic blood pressure Provider Name and Address Organization Details Last Updated DateTime 5 165.1 cm 33.6 kg/m2 84041.6 6 g 82 /min 18 /min 98.7 [degF] 98 % 98 % 100 mm[Hg] 65 mm[Hg] Lauren Romero NP [address] [facility], [facility] [address], [place], [address], [employer] [employer] [facility] 5 08:26:21 Date Recorded Body height Provider Name an d Address Organization Details Last Updated DateTime 10/19/2024 165.1 cm Lauren Romero, Morris P [address] [facility] [address], [place], [address], [employer] [employer] [facility] 10/19/2024 15:57:22 Social History Question Answer Notes LastModified by Organizat ion Details LastModified Time Tobacco Smoking Status Never Smoker Not Available [facility] 06/17/2020 03:13:20 Do You Have An Advance Directive? Yes DNR/DNI; Ok For NIV; Ok To Transfer To Hospital; No Dialysis; No Artificial Nutrition; Ok For Short-term Artificial Hydration [email or web address] Information not available 09/03/2022 What Is Your Level Of Alcohol Consumption? None [id number] Information not available 06/17/2020 How Much Tobacco Do You Chew? None [id number] Information not available 06/17/2020 What Is Your Code Status? DNR/DNI Information not available 07/02/2022 Do You Or Have You Ever Used E-cigarettes Or Vape? Never Used Electronic Cigarettes [id number] Information not available 06/17/2020 Where Do You Live? [facility] Information not available 07/02/2022 Legal Guardian? No Informati on not available 07/02/2022 Do You Have A Medical Power Of Insole Filler? Yes Valid Copy In PCC; Previously Invoked [email or web address] Information not available 09/03/2022 What Was The Date Of Your Most Recent Tobacco Screening? 08/31/2022 Information not available 09/03/2022 Do You Have An Out Of Hospital DNR? Yes Information not available 07/02/2022 Do You Or Have You Ever Used Smokeless Tobacco? Never Used Smokeless Tobacco [id number] Information not available 06/17/2020 How Much Tobacco Do You Smoke? No [id number] Information not available 06/17/2020 Do You Use [...] Details LastModified Time Unspecified Relation Essential hypertension [email or web address] Not available 14:44:08 Unspecified Relation Complication of anesthesia [email or web address] Not available 09/03 14:50:42 Medical History No medical history recorded. Gynecological HistoryNo gynecological history recorded. Obstetrics History GPAL:G 0 P 0 0 0 0 Immunizations Vaccine Type Date Status Note Provider Nam e and Address Organization Details Recorded Time COVID-19, mRNA, LNP-S, PF, 30 mcg/0.3 mL dose 1 completed JASMINE GARCIA PA-C [address] [facility], [address], [place], [address], [facility] 09/03/2022 14:26:00 Influenza, adjuvanted, quadrivalent, PF 2 completed Sara griffith, [facility] 10/11/2023 08:11:48 COVID-19, mRNA, LNP-S, PF, 30 mcg/0.3 mL dose 1 completed BRAXTON BERNSTEIN [address] [facility], [address], [place], [address], [facility] 10/21/2020 17:26:27 COVID-19, mRNA, LNP-S, PF, 30 mcg/0.3 mL dose 1 completed LIZANDRO SMITHBRAXTON PERALES [address] [facility], [address], [place], [address], [facility] 10/21/2020 17:26:39 Influenza, split virus, quadrivalent, preservative 0 completed LIZANDRO BRAXTON YU [address] [facility], [address], [place], [address], [facility] 10/21/2020 17:26:55 Past Encounters Encounter ID Performer Location Encounter Start Date Encounter Closed Date Diagnosis/Indication Diagnosis SNOMED-CT Code Diagnosis ICD10 Code Diagnosis Note [id number] [address] 05/05/2019 08:51:50 05/18/2019 16:09:38 Cerebrovascular accident 157596115 I63.011 See HPI continued on xarelto 20 mg dailyAtorv astatin 40 mg qhsASA 81 mg dailyateno lol 50 mg dailyPT/OT eval and treat for weakness Seizure disorder 3703854 02 G40.009 topamax 50 mg BIDmonitor for seizure activity Essential hypertension 12017173 I10 atenolol dailymonit or bps daily Dementia 76425668 F01.50 Continue supportive care, expect declinepat ient on secured unit [id number] Elton Charles MD [facility] [address] 05/08/2019 11:47:39 05/18/2019 16:14:31 Cerebrovascular accident 259330732 I63.331 see HPIacute and subacute left parietal and right occipital lobes with high grade stenosis of right posterior cerebral arterynow onxarelto 20 mg qdlipitor 40 mg qdASA 81 mg qdmonitor sxPT OT Eval and treatmonit or fall risk Dementia 28084218 F02.80 question baseline dementiain voke HCPcontinu e supportive caremonito r for behaviors and need to transition to LTC Atrial fibrillation 4943 6004 I48.0 xarelto 20 mg qdatenolol 50 mg qdmonitor for rate control Essential hypertension 05305291 I10 atenolol 50 mg qdmonitor bp Seizure disorder 9908472 02 G40.89 carrying dxmaintain ed ontopirama te 50 [place] [id number] BRAXTON BERNSTEIN [facility] [address] 05/28/2019 14:32:37 05/31/2019 13:35:18 Atrial fibrillation 88353365 I48.0 xarelto 20 mg qdmonitor rate and rhythm Dementia 25238797 F02.81 depakote 125 mg bidseroque l 25 mg bidtopiram ate 50 mg biddiscuss ed risk vs benefit of depakote, seroquel and topiramate with hcpmonitor mood and behaviorsp sych eval and treatexpec t declinesup portive carequesti on of other placement for hermonitor for safetyalar ms on chairs and bed Essential hypertension 74188844 I10 ASA 81 mg qdatenolol 50 mg qd Obesity 377753373 E66.01 monitor weightdiet ician consult as needed Cerebrovas cular accident 867448790 I63.89 ASA 81 mg qdxarelto 20 mg qd atorvastat in 40 mg qdmonitor Seizure disorder 9724989 02 G40.89 topiramate 50 mg bidmonitor for seizuresfo llow with neurology prn [id number] Nidhi Bahena MD [facility] [address] 07/04/2019 13:10:28 07/06/2019 14:43:15 Atrial fibrillation 89634200 I48.19 atenolol for rate controlXar elto 20 mg daily for ACwill monitor Cerebrovas cular accident 779919846 Z86.79 hx CVA: ASA 81 mg dailyatorv astatin 40 mg daily Dementia 26709922 F01.51 quetiapine 25 mg tid and bid prnsee topiramate and divalproex below for seizure disorder as well as for anxiety/mo od stabilizat ionexpect declinewil l monitor and support as needed Essential hypertension 33196329 I10 atenolol 50 mg dailywill monitor Seizure disorder 8485546 02 G40.009 divalproex delayed release 125 mg tidtopiram ate 50 mg bidwill monitor [id number] BRAXTON BERNSTEIN [facility] [address] [address] 07/25/2019 11:23:34 07/31/2019 10:53:43 Dementia 56464383 F02.81 depakote 125 mg tidseroque l 25 mg tidtopiram ate 50 mg bid monitor mood and behaviorsp sych eval and treatexpec t declinesup portive care monitor for safetyalar ms on chairs and bed Essential hypertension 42420926 I10 ASA 81 mg qdatenolol 50 mg qd monitor b/p and labs Seizure disorder 9801202 02 G40.89 topiramate 50 mg bidmonitor for seizuresfo llow with neurology prn Atrial fibrillation 4943 6004 I48.0 xarelto 20 mg qdmonitor rate and rhythm Cerebrovas cular accident 255086943 I63.89 ASA 81 mg qdxarelto 20 mg qd atorvastat in 40 mg qdmonitor [id number] Elton Charles MD [facility] [address] [address] 10/12/2019 13:43:49 10/22/2019 12:20:48 Atrial fibrillation 40614832 I48.0 xarelto 20 mg qdatenolol 50 mg qdmonitor for rate control Essential hypertension 69732846 I10 atenolol 50 mg qdmonitor bp Dementia 25196750 F02.80 baseline dementiaco ntinue supportive caremonito r for behaviorsp sych eval prn Unsteady gait 572887692 R26.81 [place] [id number] BRAXTON BERNSTEIN [facility] [address] [address] 12/03/2019 09:23:19 12/05/2019 16:23:36 Dementia 17482284 F02.81 seroquel 25 mg tid monitor mood and behaviorsp sych eval and treatexpec t declinesup portive care HCP invoked Seizure disorder 5720091 02 G40.89 topiramate 50 mg bid depakote 125 mg tid monitor for seizuresfo llow with neurology prn Essential hypertension 03970027 I10 ASA 81 mg qdatenolol 50 mg qd monitor b/p and labs Atrial fibrillation 4943 6004 I48.0 xarelto 20 mg qdmonitor rate and rhythm Cerebrovas cular accident 606563046 I63.89 ASA 81 mg qdxarelto 20 mg qd atorvastat in 40 mg qdmonitor [id number] BRAXTON Richards [facility] [address] 12/31/2019 08:14:24 01/03/2020 09:46:28 Unsteady gait 835674660 R26.81 refer to PT OT for eval of difficulty standingmo nitor for pain in knees, anklescont inue muscle rub and tylenol prn for pain [id number] Nidhi Bahena MD [facility] [address] [address] 02/13/2020 09:43:30 02/15/2020 11:40:14 Essential hypertension 16333845 I10 atenolol 50 mg dailywill monitor Seizure disorder 8752409 02 G40.009 divalproex delayed release 125 mg tidtopiram ate 50 mg bidwill monitor Dementia 45145159 F01.51 quetiapine 25 mg tid and bid prnsee topiramate and divalproex for seizure disorder as well as for anxiety/mo od stabilizat ionexpect declinewil l monitor and support as needed Cerebrovas cular accident 390908639 Z86.79 hx CVA: ASA 81 mg dailyatorv astatin 40 mg dailywill monitor and support Atrial fibrillation 4943 6004 I48.19 atenolol 50 mg daily for rate controlXar elto 20 mg daily for ACwill monitor [id number] BRAXTON BERNSTEIN [facility] [address] 04/07/2020 10:43:00 04/15/2020 14:56:39 Dementia 42991700 F02.81 seroquel 25 mg tid monitor mood and behaviorsp sych eval and treatexpec t declinesup portive care HCP invoked Atrial fibrillation 4943 6004 I48.0 xarelto 20 mg qdmonitor rate and rhythm Seizure disorder 7407466 02 G40.89 topiramate 50 mg bid depakote 125 mg tid monitor for seizuresfo llow with neurology prn Essential hypertension 19036397 I10 ASA 81 mg qdatenolol 50 mg qd monitor b/p and labs [id number] [facility]AY [facility]P [facility] [address] [place] [address] 05/09/2020 14:10:27 05/12/2020 15:42:54 Dementia 40643572 F02.81 seroquel 25 mg tid monitor mood and behaviorsp sych eval and treatexpec t declinesup [facility] invoked Essential hypertension 38710840 I10 ASA 81 mg qdatenolol 50 mg qd monitor b/p and labs Atrial fibrillation 4943 6004 I48.0 xarelto 20 mg qdmonitor rate and rhythm Cerebrovas cular accident 172395627 I63.89 ASA 81 mg qdxarelto 20 mg qd atorvastat in 40 mg qdmonitor Obesity 753989979 E66.01 monitor weightdiet ician consult as needed Seizure disorder 5316595 02 G40.89 topiramate 50 mg bid depakote 125 mg tid monitor for seizuresfo llow with neurology prn Unsteady gait 562045374 R26.81 PT/OT eval and treat prnmonitor for safety [id number] [facility] [address] [place] [address] 06/18/2020 07:55:24 06/20/2020 11:13:12 Atrial fibrillation 53373649 I48.19 atenolol 50 mg daily for rate controlriv aroxaban 20 mg daily for ACwill monitor Cerebrovas cular accident 077552447 Z86.79 hx CVA: ASA 81 mg dailyatorv astatin 40 mg dailywill monitor and support Dementia 17882201 F01.51 quetiapine 25 mg tidsee topiramate and divalproex for seizure disorder as well as for anxiety/mo od stabilizat ionexpect declinewil l monitor and support as needed Essential hypertension 87881725 I10 atenolol 50 mg dailywill monitor Seizure disorder 8545304 02 G40.009 divalproex delayed release 125 mg tidtopiram ate 50 mg bidwill monitor [id number] BRAXTON BERNSTEIN [facility] [address] [address] 08/12/2020 11:36:19 08/19/2020 11:32:50 Dementia 69687114 F02.81 expect declinesup portive careseroqu el 25 mg tid monitor mood and behaviorsp sych eval and treatHCP invokedmon itor for safety Essential hypertension 57178734 I10 ASA 81 mg qdatenolol 50 mg qd monitor b/p and labs Seizure disorder 7501673 02 G40.89 topiramate 50 mg bid depakote 125 mg tid monitor for seizuresfo llow with neurology prn Atrial fibrillation 4943 6004 I48.0 xarelto 20 mg qdatenolol 50 mg qd monitor rate and rhythm [id number] BRAXTON BERNSTEIN [facility] [address] [address] 09/24/2020 11:49:07 09/25/2020 09:54:29 Candidiasis of skin 49342423 B37.2 anterior neck fold with rashwill order nystatin powder bid prnmonitor for resolution [id number] Nidhi Bahena MD [facility] [address] [address] 10/08/2020 09:55:52 10/10/2020 13:31:21 Dementia 58035434 F01.51 quetiapine 25 mg tidsee topiramate and divalproex for seizure disorder as well as for anxiety/mo od stabilizat ionexpect declinewil l monitor and support as needed Essential hypertension 41125251 I10 atenolol 50 mg dailywill monitor Seizure disorder 8083004 02 G40.009 divalproex delayed release 125 mg tidtopiram ate 50 mg bidwill monitor Cerebrovas cular accident 089283300 Z86.79 hx CVA:ASA 81 mg daily atorvastat in 40 mg dailywill monitor and support Atrial fibrillation 4943 6004 I48.19 atenolol 50 mg daily for rate controlriv aroxaban 20 mg daily for ACwill monitor Mixed anxi ety and depressive disorder 778935429 F41.8 sertraline 25 mg dailytopir amate 50 mg biddivalpr oex 125 mg tidquetiap ine 25 mg tidwill monitor [id number] BRAXTON BERNSTEIN [facility] [address] [address] 11/28/2020 13:39:01 12/01/2020 14:04:37 Dementia 71256053 F02.81 expect decline supportive care seroquel 25 mg tid monitor mood and behaviors psych eval and treat HCP invoked monitor for safety Essential hypertension 47866998 I10 ASA 81 mg qd atenolol 50 mg qd monitor b/p and labs Seizure disorder 9899772 02 G40.89 topiramate 50 mg bid depakote 125 mg tid monitor for seizures follow with neurology prn Atrial fibrillation 4943 6004 I48.0 xarelto 20 mg qdatenolol 50 mg qd monitor rate and rhythm [id number] BRAXTON BERNSTEIN [facility] [address] [address] 12/03/2020 10:52:41 12/05/2020 10:09:36 Hypothyroidism 28258607 E03.8 will start on low dose of levothyrox ine 12.5 mg qd will recheck TSH and Free T4 in 4 weeks and adjust as needed [id number] BRAXTON BERNSTEIN [facility] [address] 01/02/2021 10:15:25 01/05/2021 15:48:58 Hypothyroidism 39908603 E03.8 levothyrox ine 12.5 mg qd-will increase to 25 mg qd will recheck TSH and free T4 in 6 weeks [id number] BRAXTON BERNSTEIN [address] [address] 01/06/2021 09:52:11 01/09/2021 09:25:26 Fall 2019338 R29.6 PT/OT eval and treat monitor for safety Dementia 32537398 F02.81 expect decline supportive care seroquel 25 mg tid monitor mood and behaviors psych eval and treat HCP invoked monitor for safety Essential hypertension 43773100 I10 ASA 81 mg qd atenolol 50 mg qd monitor b/p and labs Atrial fibrillation 4943 6004 I48.0 xarelto 20 mg qd-start back on 01/19/21 atenolol 50 mg qd monitor rate and rhythm Cerebrovas cular accident 898406964 I63.89 ASA 81 mg qd xarelto 20 mg qd-start back on 01/19/21 atorvastat in 40 mg qd monitor Hypothyroidism 99726794 E03.8 levothyrox ine 25 mg qd TSH and free T4 in 6 weeks Obesity 557328110 E66.01 monitor weightdiet ician consult as needed Seizure disorder 8873940 02 G40.89 topiramate 50 mg bid depakote 125 mg tid monitor for seizures follow with neurology prn Mixed anxi ety and depressive disorder 324879961 F41.8 zoloft 25 mg qd monitor mood psych eval and treat prn Subarachno id hemorrhage due to traumatic injury 993083434 S06.6X0S no surgical interventi on needed monitor neuros as needed alert and confused baseline xarelto on hold for 2 weeks and to start back up on 01/19/21 [id number] BRAXTON BERNSTEIN [facility] [address] [address] 01/09/2021 11:50:54 01/12/2021 14:20:09 Dizziness 336574103 R42 will order meclizine 25 mg qid prn monitor for resolution will have nursing try to give prior to care or movement [id number] BRAXTON BERNSTEIN [facility] [address] [address] 01/14/2021 09:56:35 01/16/2021 16:05:21 Postconcussion syndrome 15598585 F07.81 headaches and dizziness continue with meclizine 25 mg qid prn especially prior to care treat headaches with tylenol may prescribe something stronger if tylenol not working may take months to resolve monitor [id number] BRAXTON BERNSTEIN [facility] [address] [address] 01/20/2021 09:45:09 01/28/2021 11:17:55 Postconcussion syndrome 64121957 F07.81 headaches and dizziness appear less frequent meclizine 25 mg qid prn especially prior to care tylenol 650 mg q 4 hrs prn monitor Dementia 52403830 F02.81 expect decline supportive care seroquel 25 mg tid monitor mood and behaviors psych eval and treat HCP invoked monitor for safety Fall 2481740 R29.6 PT/OT monitor for safety Pain in right knee 42621 09668 46266 M25.561 chronic tylenol 650 mg q 4 hrs prn monitor [id number] [facility] [address] 01/23/2021 08:08:19 01/30/2021 12:32:39 Atrial fibrillation 34049001 I48.19 atenolol 50 mg daily for rate controlriv aroxaban 20 mg daily for ACwill monitor Cerebrovas cular accident 769713955 Z86.79 hx CVA: ASA 81 mg daily atorvastat in 40 mg daily will monitor and support Dementia 46037076 F01.51 quetiapine 25 mg tidsee topiramate and divalproex for seizure disorder as well as for anxiety/mo od stabilizat ionexpect declinewil l monitor and support as needed Essential hypertension 37081251 I10 atenolol 50 mg dailywill monitor Hypothyroidism 97113673 E03.8 levothyrox ine 25 mcg daily will monitor Mixed anxi ety and depressive disorder 320674393 F41.8 sertraline 25 mg dailytopir amate 50 mg biddivalpr oex 125 mg tidquetiap ine 25 mg tidwill monitor Seizure disorder 6148321 02 G40.009 divalproex delayed release 125 mg tidtopiram ate 50 mg bidwill monitor Subarachno id hemorrhage due to traumatic injury 946934200 S06.6X0D will continue to monitor and support as needed Osteoarthritis 304705031 M15.0 APAP 650 mg bid and q4h prn will monitor [id number] BRAXTON BERNSTEIN [facility] [address] 01/26/2021 11:23:46 01/30/2021 13:22:46 Postconcussion syndrome 74309389 F07.81 headaches and dizziness improving per patient meclizine 25 mg qid prn especially prior to care tylenol 650 mg q 4 hrs prn monitor Pain in right knee 77442 74492 67788 M25.561 chronic tylenol arthritis 650 mg bid monitor PT/OT Fall R29.6 PT/OT monitor for safety [id number] MARCIAL WARD NP [facility] [address] [address] 03/18/2021 13:30:14 03/23/2021 15:02:10 Subarachnoid hemorrhage due to traumatic injury 341616486 S06.6X0S continue to monitor Seizure disorder 5575256 02 G40.909 divalproex delayed release 125 mg tidtopiram ate 50 mg bidwill monitor Postconcus sammie syndrome 23863738 F07.81 meclizine 25 mg qid prn especially prior to caretyleno l 650 mg q 4 hrs prn Pain in right knee 90910 89422 68240 M25.561 tylenol arthritis 650 mg bid Obesity 977200738 E66.9 monitor weightdiet ician consult as needed Mixed anxi ety and depressive disorder 662476034 F41.8 sertraline 25 mg dailytopir amate 50 mg biddivalpr oex 125 mg tidquetiap ine 25 mg tidwill monitor Hypothyroidism 00884233 E03.9 levothyrox ine 25 mcg dailywill monitor Fall W19.XXXS PT OT prnfall precaution sfrequent safety checks Essential hypertension 96247400 I10 atenolol 50 mg dailywill monitor Dementia 60014487 F03.90 quetiapine 25 mg tidsee topiramate and divalproex for seizure disorder as well as for anxiety/mo od stabilizat ionexpect declinewil l monitor and support as needed Cerebrovas cular accident 962996706 I63.9 ASA 81 mg dailyatorv astatin 40 mg dailywill monitor and support Atrial fibrillation 4303 6004 I48.91 atenolol 50 mg daily for rate controlriv aroxaban 20 mg daily for ACwill monitor [id number] Nidhi Bahena MD [facility] [address] 05/08/2021 08:38:49 05/11/2021 14:49:11 Atrial fibrillation 95755704 I48.19 atenolol 50 mg daily for rate controlriv aroxaban 20 mg daily for ACwill monitor Cerebrovas cular accident 414924850 I63.9 hx CVA: ASA 81 mg daily atorvastat in 40 mg daily will monitor and support Dementia 89075599 F02.80 see meds for anxiety/mo od stabilizat ionexpect declinewil l monitor and support as needed Essential hypertension 17689123 I10 atenolol 50 mg dailywill monitor Hypothyroidism 71766702 E03.8 levothyrox ine 25 mcg daily will monitor Mixed anxi ety and depressive disorder 136873115 F41.8 topiramate 50 mg biddivalpr oex 125 mg tidquetiap ine 25 mg bid and 50 mg at hssertrali ne 25 mg dailywill monitor Seizure disorder 9269699 02 G40.909 divalproex delayed release 125 mg tidtopiram ate 50 mg bidwill monitor Osteoarthritis 572889348 M15.0 APAP 650 mg q4h prn will monitor [id number] KINZA MAIN NP [address] [address] 05/12/2021 10:21:01 05/14/2021 11:15:01 Atrial fibrillation 00337932 I48.19 atenolol 50 mg daily for rate controlriv aroxaban 20 mg daily for ACwill monitorChe ck CBC x 1 Cerebrovas cular accident 546950554 I63.9 hx CVA: ASA 81 mg daily atorvastat in 40 mg daily will monitor and supportChe ck CMP and lipids x 1 Dementia 91603665 F02.80 see meds for anxiety/mo od stabilizat ionexpect declinewil l monitor and support as needed Essential hypertension 96673129 I10 atenolol 50 mg dailywill monitor Hypothyroidism 09617352 E03.8 levothyrox ine 25 mcg daily will monitorChe ck TSH x 1 Mixed anxi ety and depressive disorder 921494648 F41.8 topiramate 50 mg biddivalpr oex 125 mg tidquetiap ine 25 mg bid and 50 mg at hssertrali ne 25 mg dailywill monitorChe ck CMP, VPA level x 1 Seizure disorder 6896319 02 G40.909 divalproex delayed release 125 mg tidtopiram ate 50 mg bidwill monitor Osteoarthritis 887064429 M15.0 APAP 650 mg q4h prn will monitor Subarachno id hemorrhage due to traumatic injury 187403011 S06.6X0S and post concussive syndrome - improved. [id number] MICKI [facility] [address] [address] 07/08/2021 12:11:12 07/10/2021 11:56:18 Atrial fibrillation 04729631 I48.19 atenolol 50 mg daily for rate controlriv aroxaban 20 mg daily for ACASA 81 mg dailywill monitor rate, bleeding risk Cerebrovas cular accident 853677458 I63.9 hx CVA: ASA 81 mg daily atorvastat in 40 mg daily will monitor and supportChe ck CMP and lipids yearly Dementia 03946589 F02.80 see meds for anxiety/mo od stabilizat ionexpect declinewil l monitor and support as needed Essential hypertension 75075838 I10 atenolol 50 mg dailywill monitor Hypothyroidism 64889569 E03.8 levothyrox ine 25 mcg daily will monitorChe ck TSH tomorrow 07/09 Mixed anxi ety and depressive disorder 778034462 F41.8 topiramate 50 mg biddivalpr oex 125 mg tidquetiap ine 25 mg bid and 50 mg at hssertrali ne 25 mg dailywill monitor mood - consider GDR, patient seems dazed during visit. Seizure disorder 4176102 02 G40.909 divalproex delayed release 125 mg tidtopiram ate 50 mg bidwill monitor Osteoarthritis 741464773 M15.0 APAP 650 mg q4h prn will monitor [id number] KINZA MAIN NP [facility] [address] [address] 08/10/2021 14:37:50 08/13/2021 13:42:38 Bleeding of mouth 46572739 K13.79 Unclear etiology -? oral?respO n xarelto and ASA - may cause pt. to bleed easierChec k CBCmonitor VS, s/s bleedingMo nitor for further GI sx.Can get dental exam if remains problemati cCan check CXR as well [id number] Nidhi Bahena MD [facility] [address] [address] 09/02/2021 07:17:29 09/04/2021 12:52:37 Dementia 42552393 F02.80 see meds for anxiety/mo od stabilizat ionexpect declinewil l monitor and support as needed Atrial fibrillation 4943 6004 I48.19 atenolol 50 mg daily for rate controlriv aroxaban 20 mg daily for ACwill monitor Hypothyroidism 72076709 E03.8 levothyrox ine 25 mcg daily will monitor Mixed anxi ety and depressive disorder 984114298 F41.8 topiramate 50 mg biddivalpr oex 125 mg tidquetiap ine 50 mg bid and 25 mg at 2pmsertral ine 25 mg dailywill monitor Seizure disorder 6377839 02 G40.909 divalproex 125 mg tidtopiram ate 50 mg bidwill monitor History of cerebrovascular accident 529004939 Z86.73 hx CVA: ASA 81 mg daily atorvastat in 40 mg daily will monitor and support Osteoarthritis 251973189 M15.0 APAP 650 mg q4h prnAPAP ER 650 mg bidwill monitor [id number] KNIZA MAIN NP [facility] [address] [address] 1 10/20/2021 13:24:08 10/23/2021 14:58:10 Choking 287394257 R09.89 Self limited event 10/18Able to clear blockage with assist from staff.Diet down graded to [facility]. softReferr ed to [facility] for all meals in supervised setting.Mo nitor closely for now. [id number] BRAXTON BERNSTEIN [facility] [address] 10/23/2021 08:49:13 10/27/2021 14:56:43 Dementia 56181018 F02.80 expect decline supportive care seroquel 25 mg qd and 50 mg bid monitor mood and behaviors psych eval and treat HCP invoked monitor for safety Atrial fibrillation 4943 6004 I48.19 xarelto 20 mg qd atenolol 50 mg qd monitor rate and rhythm Essential hypertension 21561245 I10 ASA 81 mg qd atenolol 50 mg qd monitor b/p and labs Hypothyroidism 40386597 E03.8 levothyrox ine 25 mg qd TSH and free T4 Mixed anxi ety and depressive disorder 201676150 F41.8 zoloft 25 mg qd monitor mood psych eval and treat prn Seizure disorder 9221850 02 G40.909 topiramate 50 mg bid depakote 125 mg tid monitor for seizures follow with neurology prn Fall W19.XXXS PT/OT eval and treat prn monitor for safety [id number] [facility] of [address] [address] 11/09/2021 11:21:16 11/12/2021 15:00:36 Choking 346365590 R09.89 out of bed for meals with supervisio n mechanical soft diet up graded to thin liquids continue to work with speech therapy monitor [id number] BRAXTON Richards of [address] [address] 1 11/27/2021 10:51:04 11/30/2021 15:22:04 Edema of lower extremity 734142910 R60.0 continue wilber wrapsdoes not need diuretic at this pointmonit or edemacheck bmp on 11/30/21 Hypothyroidism 84838265 E03.8 continue levothyrox ine 25 mcg qdcheck tsh, FT4 on 11/30/21 Dementia 81464634 F02.80 supportive careexpect declinemon itor mood Weight gain 7547889 R63. 5 pt is eating 100% of all her meals nowmonitor intakeweig ht weekly x 4 weeksis not on supplement shakes or double portions [id number] BRAXTON BERNSTEIN [facility] [address] [address] 1 11/30/2021 15:13:48 12/07/2021 16:44:25 Hypothyroidism 83304088 E03.8 levothyrox ine 25 mcg qd-will increase to 37.5 mcg qd recheck TSH and free T4 in 4 weeks [id number] Nidhi Bahena MD [facility] [address] [address] 12/16/2021 06:51:26 12/21/2021 12:17:26 Dementia 82061778 F02.80 see meds for anxiety/mo od stabilizat ionexpect declinewil l monitor and support as needed Cerebrovas cular accident 295746985 I63.9 hx CVA: ASA 81 mg daily atorvastat in 40 mg daily will monitor and support Atrial fibrillation 4943 6004 I48.19 atenolol 50 mg daily for rate controlriv aroxaban 20 mg daily for ACwill monitor Hypothyroidism 67460791 E03.8 levothyrox ine 37.5 mcg daily will monitor Mixed anxi ety and depressive disorder 208551931 F41.8 topiramate 50 mg biddivalpr oex 125 mg tidquetiap ine 50 mg bid and 25 mg at 2pmsertral ine 25 mg dailywill monitor Seizure disorder 5924622 02 G40.909 divalproex 125 mg tidtopiram ate 50 mg bidwill monitor Essential hypertension 20670785 I10 atenolol 50 mg dailywill monitor Osteoarthritis 643345921 M15.0 APAP 650 mg q4h prnAPAP ER 650 mg bidwill monitor [id number] KINZA MAIN NP [facility] [address] [address] 1 12/31/2021 13:48:11 01/01/2022 17:40:33 Diaper rash 76594864 L22 irritation most likely related to moisture and irritation from her brief, however may have some underlying fungal irritation as well.Keep area as clean and dry as able, keep brief loose to avoid bunching in between legs, leave open at night.Lotr isone cream to ext. vaginal/la bial area bid and prn x 14 daysMonito r for improvemen t [id number] BRAXTON BERNSTEIN [facility] [address] [address] 1 02/01/2022 12:57:09 02/03/2022 12:38:21 Candidiasis of vagina 49640695 B37.3 will order diflucan 100 mg x1 (only have 100's in e-kit) then 150 mg x1 in one week monitor for resolution [id number] BRAXTON BERNSTEIN [facility] [address] 02/05/2022 11:33:42 02/08/2022 15:31:26 Dementia 93094408 F02.80 expect decline supportive care seroquel 50 mg bid monitor mood and behaviors psych eval and treat prn HCP invoked monitor for safety Atrial fibrillation 4943 6004 I48.19 xarelto 20 mg qd atenolol 50 mg qd monitor rate and rhythm Hypothyroidism 51152943 E03.8 levothyrox ine 37.5 mcg qd monitor TSH and free T4 Seizure disorder 4589682 02 G40.909 topiramate 50 mg bid depakote 125 mg tid monitor for seizures follow with neurology prn Essential hypertension 81462800 I10 ASA 81 mg qd atenolol 50 mg qd monitor b/p and labs [id number] Nidhi Bahena MD [facility] [address] 03/26/2022 09:35:51 03/30/2022 15:04:57 Dementia 13708438 F02.80 see meds for anxiety/mo od stabilizat ionexpect declinewil l monitor and support as needed Cerebrovas cular accident 136847523 Z86.79 hx CVA: ASA 81 mg daily atorvastat in 40 mg daily will monitor and support Atrial fibrillation 4943 6004 I48.19 atenolol 50 mg daily for rate controlriv aroxaban 20 mg daily for ACwill monitor Essential hypertension 81731557 I10 atenolol 50 mg dailywill monitor Hypothyroidism 18441832 E03.8 levothyrox ine 37.5 mcg daily will monitor Mixed anxi ety and depressive disorder 030852611 F41.8 topiramate 50 mg biddivalpr oex 125 mg tidquetiap ine 50 mg bid and 25 mg at 2pmsertral ine 25 mg dailywill monitor Seizure disorder 8019115 02 G40.909 divalproex 125 mg tidtopiram ate 50 mg bidwill monitor Chronic pain 11493953 G8 9.29 APAP 1000 mg bid and 650 mg q8h prnwill monitor [id number] KINZA MAIN NP [address] [address] 1 04/08/2022 15:05:28 04/13/2022 13:29:05 Parotitis 01841499 K11.20 acute, per. pt swelling improved by 50% (bur poor historian) continue sour foods/cand ies to promote salivation continue ceftin 250 mg bid x 7 daysMonito r VS, neck/ear/c heek area for swelling, redness, heat, pain.Can refer to ENT if problemati c [id number] BRAXTON BERNSTEIN [address] [address] 05/14/2022 08:06:42 05/24/2022 14:49:39 Dementia 40479514 F02.80 Alert and oriented to person, place. Not oriented to year or situation. expect decline supportive care seroquel 25 mg qd and 50 mg bid monitor mood and behaviors psych eval and treat prn HCP invoked monitor for safety Mixed anxi ety and depressive disorder 216456014 F41.8 No acute depressive sxs. Flat affect. zoloft 25 mg qd monitor mood psych eval and treat prn Essential hypertension 66030921 I10 ASA 81 mg qd atenolol 50 mg qd monitor b/p and labs Hypothyroidism 42328983 E03.8 11/30/21: TSH 5.16 levothyrox ine 37.5 mcg qd monitor TSH and free T4 Fall 5854228 W19.XXXS PT/OT as needed monitor for safety Obesity 090298078 E66.9 monitor weight dipper fish consult as needed Seizure disorder 2148584 02 G40.909 No recent seizures. topiramate 50 mg bid depakote 125 mg tid monitor for seizures follow with neurology prn Arthritis 1785327 M15.0 Pt continues to have right knee and ankle pain. Moderate in intensity. APAP 1000 mg bid and 650 mg q 8 hrs prn monitor pain Atrial fibrillation 4943 6004 I48.19 Denies CP, palpitatio ns, SOB. Rate WNL. xarelto 20 mg qd atenolol 50 mg qd monitor rate and rhythm Cerebrovas cular accident 383622522 Z86.79 ASA 81 mg qd xarelto 20 mg qd atorvastat in 40 mg qd monitor [id number] BRAXTON BERNSTEIN [facility] [address] [address] 1 05/21/2022 10:45:22 05/24/2022 15:30:00 Chronic insomnia 136557742 F51.04 noted to complain of difficulty sleeping to psych will add melatonin 3 mg q hs prn monitor sleep [id number] Bina Tay MD [facility] [address] [address] 07/02/2022 14:09:34 07/20/2022 15:07:51 Dementia 46621332 F02.B3 Continues at baselineCo ntinue sertraline 25 [...] prn. Mixed anxi ety and depressive disorder 537675349 F41.8 As above Essential hypertension 18042393 I10 Adequate control on atenolol 50 mg qdMonitor BP and labs. Hypothyroidism 83695531 E03.8 TSH sl high, but with nl FT4.Contin ue levothyrox ine 37.5 mcg qdMonitor TSH and FT4 yearly. Seizure disorder 6838602 02 G40.802 No recent seizure activity.C ontinue meds as above.Valp roic acid level low, but ok as being used synergisti vince with depakote.M onitor for seizure activity. Arthritis 4732828 M15.0 No c/o today.Cont inue APAP 1000 mg BID and 650 mg q 8 hrs prnMonitor sxs. Atrial fibrillation 4943 6004 I48.19 Rate in good control on atenolol as above.Cont inue xarelto 20 mg qd for AC.Monitor HR and bleeding risk. Cerebrovas cular accident 452334167 Z86.79 No recent sxs. Continue atorvastat in 40 mg qd and ASA 81 mg qd. Monitor for new sxs. [id number] JASMINE GARCIA PA-C [facility] [address] [address] 08/20/2022 13:32:07 09/03/2022 15:54:36 COVID-19 879830164 U07.1 CrCl 65.9 per CC&G ABW-Paxlov id [...] protocol Vascular d ementia without behavioral disturbance 1500500200 1186772 F01.50 Did not tolerate SLUMS JASMINE GARCIA PA-C [facility] [address] [address] 1 08/24/2022 15:29:05 09/03/2022 16:20:13 Acute COVID-19 5927842791 U07.1 Finish PaxlovidFo llow clinically Supportive carePrecau tions per facility protocol [id number] JASMINE GARCIA PA-C [facility] [address] [address] 1 08/31/2022 20:35:34 09/16/2022 16:01:02 Weight loss 77695769 R63.4 Recent acute illnessSom e degree of wt loss is desirable in this patientMon itor weightsRD also following Acute COVID-19 531844545 8 U07.1 completed Paxlovidcl inically recovered Recurrent falls 38471831 2 R29.6 PT/OT prn [id number] JASMINE GARCIA PA-C [facility] [address] [address] 1 10/06/2022 19:26:54 10/12/2022 15:37:50 Vascular dementia with behavioral disturbance 6248103745 78366 F01.518 Clarify status of labs ordered for 08/04/22-r e-order if not doneNo indication for q 6-month monitoring of lipids and A1c given advanced age, comorbidit ies, and goals of care-annua l monitoring adequate although would still consider not monitoring these labs for the same reason since results would not change the management of the patient [id number] JASMINE GARCIA PA-C [facility] [address] [address] 10/08/2022 15:07:10 10/12/2022 16:04:06 Dyslipidemia 651961982 E78.5 satisfacto ry lipid panelwill not reduce statin since TG above goalfollow annually Acquired hypothyroidism 342022309 E03.9 TSH not able to be done today -- await re-draw and f/u when resulted Vascular d ementia with behavioral disturbance 8446339732 98067 F01.518 VPA level extremely subtherape utic although [...] all [id number] Nidhi Bahena MD [facility] [address] [address] 1 11/03/2022 09:14:17 11/04/2022 18:51:16 Dementia 36853509 F02.B3 see meds for mixed anxiety disorderex pect declinewil l monitor and support as needed Atrial fibrillation 494 6002 I48.19 atenolol 50 mg daily for rate controlriv aroxaban 20 mg daily for ACwill monitor Mixed anxi ety and depressive disorder 607917633 F41.8 topiramate 50 mg biddivalpr oex 125 mg tidquetiap ine 50 mg bid and 25 mg daily at 2pmsertral ine 25 mg dailywill monitor Essential hypertension 72055084 I10 atenolol 50 mg dailywill monitor Seizure disorder 9573589 02 G40.802 divalproex 125 mg tidtopiram ate 50 mg bidwill monitor Hypothyroidism 78392901 E03.8 levothyrox ine 37.5 mcg daily will monitor Hyperlipidemia 07686040 E78.49 atorvastat in 40 mg dailywill monitor Chronic pain 60663409 G8 9.29 APAP 1000 mg bid and 650 mg q8h prnmuscle rub cream to neck, upper extremity prnwill monitor [id number] KINZA MAIN NP [address] [address] 12/29/2022 15:54:14 01/03/2023 12:30:13 Dementia 20158973 F02.B3 QUETIAPINE 50MG TABS BIDQUETIAP INE 25MG TABS dailymonit or mood, behaviorse xpect declinepsy ch eval as needed Atrial fibrillation 4943 6004 I48.19 continue:a tenolol 50 mg daily for rate controlriv aroxaban 20 mg daily for ACmonitor VSmonitor labs Mixed anxi ety and depressive disorder 211227221 F41.8 topiramate 50 mg biddivalpr oex 125 mg tidquetiap ine 50 mg bid and 25 mg daily at 2pmsertral ine 25 mg dailypsych eval as neededmoni tor mood, behaviors for change Essential hypertension 10537871 I10 atenolol 50 mg dailymonit or VS, adjust meds prnmonitor for clinical status changes Seizure disorder 7964603 02 G40.802 divalproex 125 mg tidtopiram ate 50 mg bidmonitor labsmonito r for clinical status changes Hypothyroidism 40853302 E03.8 levothyrox ine 37.5 mcg dailylast TSH 4.65 in 2021monito r labs q 6-12 months and prn Hyperlipidemia 27821995 E78.49 atorvastat in 40 mg dailymonit or labs a s needed Chronic pain 19039968 G8 9.29 APAP 1000 mg bid and 650 mg q8h prnmuscle rub cream to neck, upper extremity prn [id number] MICKI MILIAN [facility] [address] [address] 02/04/2023 12:23:12 02/08/2023 09:49:29 Tongue biting 601146463 K14.8 unclear cause, no trauma or lesions notedconti nue to monitor for recurrent issues [id number] Nidhi Bahena MD [facility] [address] [address] 02/18/2023 09:35:48 03/03/2023 15:50:43 Atrial fibrillation 96550717 I48.19 atenolol 50 mg daily for rate controlriv aroxaban 20 mg daily for ACwill monitor Dementia 01326434 F02.B3 see meds for mixed anxiety disorderex pect declinewil l monitor and support as needed Mixed anxi ety and depressive disorder 424690664 F41.8 topiramate 50 mg biddivalpr oex 125 mg tidquetiap ine 50 mg bid and 25 mg daily at 2pmsertral ine 25 mg dailywill monitor Essential hypertension 15904630 I10 atenolol 50 mg dailywill monitor Cerebrovas cular accident 626941896 Z86.79 hx CVA: ASA 81 mg daily atorvastat in 40 mg daily will monitor and support Hypothyroidism 69026599 E03.8 levothyrox ine 37.5 mcg daily will monitor [id number] KINZA MAIN NP [facility] [address] [address] 04/14/2023 14:56:07 04/18/2023 10:57:13 Atrial fibrillation 07907330 I48.19 No change with OPC -Continue: atenolol 50 mg daily for rate controlriv aroxaban 20 mg daily for ACMonitor VS, labs, adjust tx. prn Dementia 03643157 F02.B3 with agitationP sych follows, continue:t opiramate 50 mg biddivalpr oex 125 mg tidquetiap ine 50 mg bid and 25 mg daily at 2pmsertral ine 25 mg dailyMonit or mood, behaviors, continue expected decline Mixed anxi ety and depressive disorder 622292820 F41.8 Remains on:topiram ate 50 mg biddivalpr oex 125 mg tidquetiap ine 50 mg bid and 25 mg daily at 2pmsertral ine 25 mg dailyAppre ciate psych input, monitor mood, behaviors, trend labs, adjust prn Essential hypertension 12945085 I10 Stable on atenolol 50 mg dailymonit or VS, adjust prn Cerebrovas cular accident 836841617 Z86.79 hx CVA: Continue: ASA 81 mg daily atorvastat in 40 mg daily Hypothyroidism 79735707 E03.8 Continue levothyrox ine 37.5 mcg dailyTSH 5.04, no change Seizure disorder 7702069 02 G40.802 No activity.d ivalproex level a little low, but as no sz. activity in quite some time, so will not increase dose - continue 125 mg tidcontinu e topiramate 50 mg bidmonitor sz. activity [id number] Nidhi Bahena MD [address] [address] 06/17/2023 09:19:56 06/21/2023 12:18:25 Dementia 04047862 F02.B3 see meds for mixed anxiety disorderex pect declinewil l monitor and support as needed Atrial fibrillation 4943 6004 I48.19 atenolol 50 mg daily for rate controlriv aroxaban 20 mg daily for ACwill monitor Essential hypertension 07115687 I10 atenolol 50 mg dailywill monitor Mixed anxi ety and depressive disorder 692788527 F41.8 topiramate 50 mg biddivalpr oex 125 mg tidquetiap ine 50 mg bid and 25 mg daily at 2pmsertral ine 25 mg dailywill monitor Hypothyroidism 78239393 E03.8 levothyrox ine 37.5 mcg daily will monitor Seizure disorder 1651969 02 G40.802 divalproex 125 mg tidtopiram ate 50 mg bidwill monitor Chronic pain 17154684 G8 9.29 APAP 1000 mg bid and 500 mg q4h prnmuscle rub cream to neck, upper extremity prnwill monitor History of cerebrovascular accident 818279368 Z86.73 hx CVA: ASA 81 mg daily atorvastat in 40 mg daily will monitor and support [id number] KINZA MAIN NP [facility] [address] [address] 07/07/2023 09:08:18 07/12/2023 08:44:00 Atrial fibrillation 31404850 I48.19 Continue:a tenolol 50 mg daily for rate controlriv aroxaban 20 mg daily for ACMonitor VS, labs, adjust tx. prn Dementia 08771693 F02.B3 with agitationP sych follows, continue:t opiramate 50 mg biddivalpr oex 125 mg tidquetiap ine 50 mg bid and 25 mg daily at 2pmsertral ine 25 mg dailyMonit or mood, behaviors, continue expected decline Mixed anxi ety and depressive disorder 645651623 F41.8 See above, followed by PsychRemai ns on:topiram ate 50 mg biddivalpr oex 125 mg tidquetiap ine 50 mg bid and 25 mg daily at 2pmsertral ine 25 mg dailyAppre ciate psych input, monitor mood, behaviors, trend labs, adjust prn Essential hypertension 15558414 I10 Stable on atenolol 50 mg dailymonit or VS, adjust prn Cerebrovas cular accident 929345812 Z86.79 hx CVA: Continue: ASA 81 mg daily atorvastat in 40 mg dailyCheck LFTs x 1 Hypothyroidism 51540685 E03.8 Continue levothyrox ine 37.5 mcg dailyTSH 5.04, no change Seizure disorder 0980827 02 G40.802 No activity.d ivalproex level a little low, but as no sz. activity in quite some time, so will not increase dose - continue 125 mg tidcontinu e topiramate 50 mg bidmonitor sz. activity [id number] Lauren Romero NP [address] [address] 08/05/2023 12:03:24 08/09/2023 14:50:46 Atrial fibrillation 61681386 I48.19 rate stableaten olol 50 mg daily for rate controlriv aroxaban 20 mg daily for ACMonitor VS, and for bleeding Dementia 44248187 F02.B3 with agitationP sych follows, continue:t opiramate 50 mg biddivalpr oex 125 mg tidquetiap ine 50 mg bid and 25 mg daily at 2pmsertral ine 25 mg dailyMonit or mood, behaviorsc ontinue expected decline Mixed anxi ety and depressive disorder 357071641 F41.8 See above, followed by Psychtopir amate 50 mg biddivalpr oex 125 mg tidquetiap ine 50 mg bid and 25 mg daily at 2pmsertral ine 25 mg dailyAppre ciate psych input, monitor mood, behaviors, trend labs, adjust prnno changes at last visit Essential hypertension 74806694 I10 bp stableaten olol 50 mg dailymonit or VS, adjust prn Cerebrovas cular accident 572864211 Z86.79 hx CVA: ASA 81 mg daily atorvastat in 40 mg daily Hypothyroidism 34227756 E03.8 levothyrox ine 37.5 mcg dailylast TSH 5.04, no change Seizure disorder 7364194 02 G40.802 divalproex level 18 in [facility] sz. activity in quite some time, so will not increase dosecontdi valporex 125 mg tidtopiram ate 50 mg bidmonitor sz. activitymo nitor level prn [id number] Nidhi Bahena MD [address] [address] 10/12/2023 08:12:48 10/13/2023 19:44:51 Dementia 36678831 F02.B3 see meds for mixed anxiety disorderex pect declinewil l monitor and support as needed Mixed anxi ety and depressive disorder 375750425 F41.8 topiramate 50 mg biddivalpr oex 125 mg tidquetiap ine 50 mg bid and 25 mg daily at 2pmsertral ine 25 mg dailywill monitor Chronic pain 28677512 G8 9.29 APAP 1000 mg bid and 500 mg q4h prnmuscle rub cream to neck, upper extremity prnwill monitor Essential hypertension 39259362 I10 atenolol 50 mg dailywill monitor Hypothyroidism 58845680 E03.8 levothyrox ine 37.5 mcg daily will monitor Atrial fibrillation 4943 6004 I48.19 atenolol 50 mg daily for rate controlriv aroxaban 20 mg daily for ACwill monitor Hyperlipidemia 66601619 E78.49 atorvastat in 40 mg dailywill monitor [id number] Lauren Romero NP [facility] [address] [address] 10/24/2023 11:26:17 10/26/2023 14:52:08 Dementia 26948365 F02.B3 see meds for mixed anxiety disorderex pect declinewil l monitor and support as needed Mixed anxi ety and depressive disorder 841916560 F41.8 topiramate 50 mg biddivalpr oex 125 mg tidquetiap ine 50 mg bid and 25 mg daily at 2pmsertral ine 25 mg dailyseen by psych on 10/20 and rec: monitor with q 6 month antipsycho tic guideline monitoring q 6 months: cbc, cmp, ha1c, lipid profile, tsh, valproic acidlast on 03/29/23 [id number] Lauren Romero NP [facility] [address] [address] 10/26/2023 10:18:59 10/27/2023 16:25:32 Dementia 56802147 F02.B3 see meds for mixed anxiety disorderex pect declinewil l monitor and support as needed Mixed anxi ety and depressive disorder 670239691 F41.8 topiramate 50 mg biddivalpr oex 125 mg tidquetiap ine 50 mg bid and 25 mg daily at 2pmsertral ine 25 mg dailyseen by psych on 10/20 and rec: monitor with q 6 month antipsycho tic guideline monitoring q 6 months: cbc, cmp, ha1c, lipid profile, tsh, valproic acidlabs stable on 10/26/23 Seizure disorder 0516538 02 G40.802 divalproex level 18 02/12divalp roex level 26 10/26/23no sz. activity in a long time, so will not increase dosecontdi valporex 125 mg tidtopiram ate 50 mg bidmonitor sz. activitymo nitor level q 6 months [id number] Lauren Romero NP [facility] [address] [address] 11/30/2023 10:08:26 12/07/2023 15:16:12 Dementia [id number] F02.B3 see meds for mixed anxiety disorderex pect declinewil l monitor and support as needed Mixed anxi ety and depressive disorder 840338992 F41.8 conttopira mate 50 mg biddivalpr oex 125 mg tidquetiap ine 50 mg bid and 25 mg daily at 2pmsertral ine 25 mg dailywill monitor Chronic pain 51877932 G8 9.29 APAP 1000 mg bid and 500 mg q4h prnmuscle rub cream to neck, upper extremity prnwill monitor Essential hypertension 13661156 I10 atenolol 50 mg dailywill monitor Hypothyroidism 76971171 E03.8 levothyrox ine 37.5 mcg daily will monitor Atrial fibrillation 4943 6004 I48.19 atenolol 50 mg daily for rate controlriv aroxaban 20 mg daily for ACwill monitor Hyperlipidemia 42177550 E78.49 atorvastat in 40 mg dailywill monitor Red right eye 2240268161 5366836 R68.89 right eye injectionu nclear cause10 start erythromcy in 0.5% oint 1/2 ribbon to right eye qid x 7 daysmonito r for visual changes, pain [id number] Lauren Romero NP [facility] [address] [address] 12/09/2023 13:34:47 12/14/2023 10:08:23 Dementia [id number] F02.B3 see meds for mixed anxiety disorderex pect declinewil l monitor and support as needed Injury of forearm 308453 008 S59.911A right forearm and right hand bruise without known source of injuryno xray neededtyl prn for pain if neededmoni tor closely [id number] KINZA MAIN NP [address] [address] 01/19/2024 09:50:08 01/24/2024 15:25:13 Bleeding of oral mucosa 387799882 K13.79 Pt. not cooperativ e with oral [...] apply to oral mucosaCont inue to monitor. [id number] Lauren Romero NP [facility] [address] [address] 01/25/2024 11:58:17 01/30/2024 19:44:46 Decreased hearing 811983909 H91.90 audiology referral for decreased hearingnee d to charan or [facility] emily [id number] Elton Charles MD [facility] [address] [address] 02/01/2024 11:52:26 02/03/2024 12:08:14 Atrial fibrillation 56950951 I48.19 xarelto 20 mg qdatenolol 50 mg qdmonitor for rate control Essential hypertension 01093291 I10 atenolol 50 mg qdmonitor bp and need to titrate Dementia 71579351 F02.B3 baseline dementia with behaviors maintained onseroquel and depakoteco ntinue supportive caremonito r for behaviorsp sych to follow [id number] Lauren Romero NP [facility] [address] [address] 03/08/2024 10:39:24 03/13/2024 14:57:28 Atrial fibrillation 34553270 I48.19 xarelto 20 mg qdatenolol 50 mg qdmonitor for rate control Essential hypertension 93213668 I10 atenolol 50 mg qdmonitor bp and need to titrate Dementia 52419513 F02.B3 baseline dementia with behaviors 03/08/24: psych assistant rec to decrease seroqel to 25 mg po bid, will agreecont depakoteco ntinue supportive caremonito r for behaviorsp sych to follow [id number] Lauren Romero NP [facility] [address] [address] 03/12/2024 09:47:09 03/13/2024 15:28:09 Dementia 86162893 F02.B3 baseline dementia with behaviors on 03/08/24: psych assistant rec to decrease seroquel to 25 mg [...] to follow Aphthous u lcer of mouth 476694824 K12.0 pt with long standing ulcer in mouth(? likely from biting and grinding)c ont orders forincreas e bid mouth care and chlorhexid ine swab bidwill continue [id number] Lauren Romero NP [facility] [address] 03/16/2024 10:55:29 03/20/2024 08:01:35 Dementia 76950604 F02.B3 baseline dementia with behaviors on 03/08/24: psych assistant rec to decrease seroquel to 25 mg [...] for behaviorsp sych to follow Acute cystitis 37799149 N30.00 03/14/24: urinalysis shows:>100 ,000 postive nitrates and leukocytes . Also shows epithelial cells but due to clinical symptoms sensitive to cipro.due to clinical symptoms will give extended course03/16 start cipro 250 mg po bid x 5 days with probiotic po bid x5 daysmonito r for clinical improvemen t and compliance [id number] Lauren Romero NP [facility] [address] 03/28/2024 12:47:07 04/03/2024 14:46:11 Acute cystitis 35889600 N30.00 03/14/24: urinalysis shows:>100 ,000 postive nitrates and leukocytes with culture sensitive to cipro.03/16 start cipro 250 mg po bid x 5 days with probiotic po bid x5 daysseems resolved and behaviors improvingm onitor for clinical improvemen t and compliance . Dementia 36761727 F02.B3 baseline dementia with behaviors on 03/08/24: psych assistant rec to decrease seroquel to 25 mg po bid she continues to refuse labs and ua positive as above contdepako te 125 mg po tidtopamax 50 mg po bidcontinu e supportive caremonito r for behaviorsp sych to follow Aphthous u lcer of mouth 955458776 K12.0 pt with long standing ulcer in mouth(? likely from biting and grinding)c ont orders forincreas e bid mouth care and chlorhexid ine swab bidwill continue Atrial fibrillation 4943 6004 I48.19 bp and hr stablecont xarelto 20 mg qdatenolol 50 mg qdmonitor for rate control Essential hypertension 20108960 I10 bp and hr stablecont atenolol 50 mg qdmonitor bp and need to titrate [id number] [facility] [address] [address] 04/27/2024 10:40:58 05/01/2024 09:44:30 Dementia 77210037 F02.B3 baseline dementia with behaviorss eroquel to 25 mg po bid, refusing meds at timescontd epakote 125 mg po tidtopamax 50 mg po bidcontinu e supportive caremonito r for behaviorsp sych to follow Hypokalemia 74163178 E87 .6 pt with ? hypokalemi a and result of 3.1 as above, unclear if this is true result as specimen clotted and all of blood work not able to be processed. If clotted specimen might result in navya potassium? 04/27 will order 20 meq potassium and potassium rich diet today04/27 recheck labs on tuesday, pt is agreeable [id number] Lauren Romero NP [facility] [address] [address] 05/16/2024 09:37:39 05/17/2024 11:10:24 Intertrigo 51841727 L30.4 rash to breast and abd mostly resolvedny statin powder bid x 4 days and prn until healedmoni tor [id number] Lauren Romero NP [address] [address] 07/05/2024 12:47:46 07/06/2024 11:30:29 Dementia 19900092 F02.B3 baseline dementia with behaviors often refusing meds or carecontqu etiapine 25 mg biddepakot e 125 mg po tidtopamax 50 mg po bidcontinu e supportive caremonito r for behaviorsp sych to follow Atrial fibrillation 4943 6004 I48.19 bp and hr stablecont xarelto 20 mg qdatenolol 50 mg qdmonitor for rate control Essential hypertension 23974870 I10 stablecont atenolol 50 mg qdmonitor bp and need to titrate Aphthous u lcer of mouth 039253388 K12.0 pt with long standing ulcer in mouth(? likely from biting and grinding)c ont orders forchlorhe xidine swab bidwill continue [id number] Lauren Romero NP [address] [address] 08/03/2024 08:23:22 08/06/2024 16:07:04 Dementia 79403103 F02.B3 baseline dementia with behaviors often refusing meds or care and occ hallucinat ions/delus ions at baselineco ntquetiapi ne 25 mg biddepakot e 125 mg po tidtopamax 50 mg po bidcontinu e supportive caremonito r for behaviorsp sych to follow Atrial fibrillation 4943 6004 I48.19 bp and hr stablecont xarelto 20 mg qdatenolol 50 mg qdmonitor for rate control Essential hypertension 98943739 I10 stablecont atenolol 50 mg qdmonitor bp and need to titrate Aphthous u lcer of mouth 232991342 K12.0 pt with long standing ulcer in mouth(? likely from biting and grinding)c ont orders forchlorhe xidine swab bidgood oral hygienewil l continue Obesity 785230651 E66.9 has lost approx 22 lbs in the last year, seems to be a good weight lossweight stable at 198 lbs for the last 3 monthswill monitor monthly weights for changes Seizure disorder 0207964 G40.802 divalproex level 18 02/12divalp roex level 26 10/26/23diva lproex level 19 04/30/24no sz. activity in a long time, so will not increase dosecontdi valporex 125 mg tidtopiram ate 50 mg bidmonitor sz. 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 hx CVA: dependent on most adl care with hx of cva and weakness ASA 81 mg daily atorvastat in 40 mg daily Pain of ri ght knee region 0208758815 19201 M25.561 hx of knee surgery right in past12/ lidocaine patch to right knee prn q 24 pain and cont tyl prn12/13 refuses pain consult or other meds to be scheduledm onitor Chronic pain 95189309 G8 9.29 hx of knee surgery right in past and occ neck painoveral l, feels it is controlled , but occ sore12/13 lidocaine patch to right knee prn q 24 pain and cont tyl prn12/13 refuses pain consult or other meds to be scheduledc ont muscle rub cream to neck prnmonitor [id number] Lauren Romero NP [address] [address] 09/07/2024 13:32:17 09/10/2024 16:32:08 Dementia 80275603 F02.B3 baseline dementia with behaviors often refusing meds or care and occ hallucinat ions/delus ions at baselineco ntquetiapi ne 25 mg tiddepakot e 125 mg po tidtopamax 50 mg po bidcontinu e supportive caremonito r for behaviorsp sych to follow Cerebrovas cular accident 643475456 Z86.79 hx CVA: dependent on most adl care with hx of cva and weakness gurmeet ASA 81 mg daily atorvastat in 40 mg daily Seizure disorder 6885807 02 G40.802 divalproex level 18 02/12divalp roex level 26 10/26/23diva lproex level 19 04/30/24no sz. activity in a long time, so will not increase dosecontdi valporex 125 mg tidtopiram ate 50 mg bidmonitor sz. activitymo nitor level q 6 months as she tolerates Atrial fibrillation 4943 6004 I48.19 stablecont xarelto 20 mg qdatenolol 50 mg qdmonitor for rate control Essential hypertension 69499703 I10 stablecont atenolol 50 mg qdmonitor bp and need to titrate Aphthous u lcer of mouth 545112957 K12.0 pt with long standing ulcer in mouth(? 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 F41.8 conttopira mate 50 mg biddivalpr oex 125 mg tidquetiap ine 25 mg po tidsertral ine 25 mg dailywill monitor [id number] Lauren Romero NP [facility] [address] [place] [address] 09/26/2024 15:31:19 09/28/2024 13:21:28 Breast lump 60421281 N63.0 09/26 with hx of breast lumps per sister, all benign chest xray for right breast massper family hcp sister, no aggressive measures and agrees with cxr to see extent.no consults, no outpt visit/test s, biopsies09/26 start tramadol 50 mg po q 6 hours prn paincont tyl prn pain [id number] Lauren Romero NP [facility] [address] [place] [address] 10/01/2024 14:36:25 10/02/2024 13:56:35 Breast lump 41962772 N63.0 2/5 with hx of breast lumps [...] 1o dayscont tyl prn pain Ankle pain 792667764 M25 .579 2/10left ankle swelling and painno known injuryxray to left ankle 2 views ro fractureic e prnelevate as toleratedc ont tramadol 50 mg po q 6 hrs and2/10 add additional 50 mg po prn if prn dose not effective within one hour x 10 daymonitor for s/s of infection [id number] [facility] [address] 10/04/2024 08:25:35 10/05/2024 13:24:59 Ankle pain 807977983 M25.579 2/10left ankle swelling and painno known injuryxray to left ankle 2 views ro fractureic e prnelevate as toleratedc ont tramadol 50 mg po q 6 hrs and2/10 add additional 50 mg po prn if prn dose not effective within one hour x 10 daymonitor for s/s of infection2 cont above212 no ortho consult per hcp, comfort measures2 12 fu with ankle left xray 2 views in 4 weeks to eval if splint is needed Breast lump 09755368 N63 .0 2/5 with hx of breast lumps per [...] for pain x 1o dayscont tyl prn pain2/12 no further measures needed, no workup Palliative care 18374792 9 Z51.5 family requesting comfort care and hospicean updated molst will be filled out by sister lucero oconnell consultpai n meds above for ronald keating labschidi keating atorvastat in and levothyrox ine todaymonit or [id number] Lauren Romero NP [address] [place] [address] 10/19/2024 15:18:34 10/19/2024 16:24:48 Ankle pain 479175378 M25.579 ice prnelevate as toleratedn o ortho consult per hcp, comfort measures unclear why xray done on 10/18 instead of 2 more weeks away but healing as expectedsh e remains with some ankle pain and swelling will increase tyl to 1000 mg po tidshe has morphine prn for pain alsomonito r Shared car e - hospice and GP 503761414 Z76.89 family requesting comfort care and hospicean updated molst will be filled out by sister lucero e consultpai n meds above for nowcontmor phine 5 mg po q 4hours prn sob/pain/e ol10/19 add ativan 0.5mg po q 4hours prn anxietymon itor Health Concerns Section Related Observation LastModified by [...] ID Guarantor Name 09/07/2024 1 [place]IC[place] B-[place]: [employer] Wilda Navaph [id number] Wilda Morales 09/07/2024 2 [place]: [facility] Wilda Taverasolph [id number] Wilda Morales 09/26/2024 1 MEDICARE B-ID: [employer] Wilda Navaph [id number] Wilda Taverasolph 09/26/2024 2 [place] [facility] Wilda Navaph [id number] Wilda Morales 10/01/2024 1 MEDICARE B-[place]: [facility] Wilda Chairez [place] [id number] Wilda [place] 10/01/2024 2 [place] Wilda Taverasolph [id number] Wilda [place] 10/04/2024 1 [place]: [facility] Wilda A Andrew [id number] Wilda [place] 10/04/2024 2 [place] [facility] [place]a [place] [id number] Wilda [place] 10/19/2024 1 [place]: [facility] Wilda Chairez [place] [id number] Wilda Andrew 10/19/2024 2 [place] [facility] Wilda Taverasolph [id number] Wilda Andrew Notes Date Note Type Note Provider Name and Address Organization Details Recorded Time 09/07/2024 text/html Pt is an 79 yo female L[facility] resident today for a routine rounding visit. PMH significant for dementia, htn Wilda remains on a slow decline with hallucinations and refusals of meds, labs, and care at times. She was seen last by psych assistant on 08/20 with no new recommendations. On exam, She is alert and pleasantly confused today in NAD. She has no concerns today. Overall, having some weight loss and is 185 lbs, which is approx the same as last month with overall weight loss in the year. Will monitor as some weight loss can be beneficial. Lauren Romero, TSERING [address] [facility], [address], [place], [address], [facility] [employer] 09/08/2024 17:52:13 09/26/2024 text/html Pt is seen [...] for pain prn. Lauren Romero NP [address] [facility], [address], [place], [address], [employer] 09/26/2024 16:10:55 10/01/2024 text/html Pt is seen [...] last week. Lauren Romero NP [address] [facility], [address], [place], [address], [employer] 10/01/2024 15:14:16 10/04/2024 text/html Pt is seen for a n acute visit. PMH significant for dementia, htn, afib, cva, depression with psychotic features, obesity, and seizures She was seen for left ankle swelling and pain on 09/28 with nursing staff noting she was transferred to a chair and her left foot got caught in the chair. On 10/02 xray left ankle results: ANKLE 2V, LEFTFINDINGS: Distal tibia/fibula fractures with minimal displacement. No significant joint malalignment. Mild soft tissue swelling.CONCLUSION: Acute appearing distal tibia/fibula fractures as noted. She was sent to hospital for evaluation of fracture on 10/02 when resulted. xray revealed minimally displaced fracture to left tib/fib. Boon no surgery recommended and splint to be keep on and follow up with orthopedist outpt. After speaking with sister, HCP as pt is invoked plan is a hospice consult, a new molst will be filled out for DNR/DNI/DNH and no hydration when she comes in to visit. Sister is clear she wants her comfortable and no further aggressive measures, no follow up for breast mass, no ortho consults,no labs needed. Med list reviewed today and will dc atorvastatin and levothyroxine as requested. On exam, pt has left splint c/d/i to ankle. She is comfortable lying in bed at baseline confused state. She states it doesn't hurt if I dont move it . She is aware tramadol is available as needed. Lauren Romero, TSER[facility] [address] [facility], [address], [place], [address], [facility] [employer] 10/04/2024 09:45:32 10/19/2024 text/html Pt is seen for a n acute visit. PMH significant for dementia, htn, afib, cva, depression with psychotic features, obesity, and seizures She was seen for left ankle swelling and pain on 09/28 with nursing staff noting she was transferred to a chair and her left foot got caught in the chair. She was sent to hospital for evaluation of distal/tibial fracture on 10/02 when xray resulted. xray revealed minimally displaced fracture to left tib/fib in ER. Boon no surgery recommended and splint to be keep on and follow up with orthopedist outpt. On 10/18 xray of left ankle CONCLUSION: Healing fractures with similar alignment when compared to the prior exam. Unclear why this wasn't done in 2 weeks. Will removed splint in 2 weeks. On exam, pt has left splint c/d/i to ankle with positive cms and some ankle swelling. She is comfortable lying in bed at baseline confused state. Lauren Romero, TSERING [address] [facility], [address], [place], [address], [facility] - [employer] 10/19/2024 16:24:47 OBGyn Episode No OBEpisode recorded.
--- OUTSIDE RECORDS SUMMARY | 2024-10-20 07:17 | XMS_ITS | Continuity of Care Document ---
Author Organization [facility], [facility] Address [address] [place] [address] Care Team Providers Care Mortgage Loan Originator Name Role Phone [facility] [...] gait Active 2019 Elton Charles MD [address], [address], [place], [address], [facility] [employer] 0 13:48:14 Hypothyroidism 02570849 Active 2020 BRAXTON BERNSTEIN [address], [address], [place], [address], [facility] [employer] 1 10:54:46 Fall Active 2020 BRAXTON BERNSTEIN [address], [address], [place], [address], [facility] [employer] 1 21:11:30 Mixed anxiety and depressive disorder 525948085 Active 2020 BRAXTON BERNSTEIN [address], [address], [place], [address], [facility] 1 21:17:00 Subarachnoid hemorrhage due to traumatic injury 233977804 Active 2020 BRAXTON BERNSTEIN [address], [address], [place], [address], [facility] 1 21:19:57 Postconcussion syndrome 38984603 Active 2020 BRAXTON BERNSTEIN [address] [facility], [address], [place], [address], [facility] 1 19:44:12 Pain in right knee Active 2020 KAY BERNSTEINP [address] [facility], [address], [place], [address], [facility] 1 17:35:06 Arthritis 2086741 Active 2021 BRAXTON BERNSTEIN [address] [facility], [address], [place], [address], [facility] 2 08:09:01 Chronic insomnia 446285103 Active 2021 BRAXTON BERNSTEIN [address] [facility], [address], [place], [address], [facility] 2 12:33:07 Atrial fibrillation 35399474 Active [address] [place] [address], [address], [place], [address], [facility] 9 08:53:30 Cerebrovascula r accident 712685698 Active 2018 MICKI MILIAN [address] [place] [address], [address], [place], [address], [facility] 9 08:53:35 Seizure disorder 392710611 Active [address] [place] [address], [address], [place], [address], [facility] 9 08:54:40 Dementia 03497520 Active [address], [address], [place], [address], [facility] 9 09:00:49 Essential hypertension 10767118 Active [address], [address], [place], [address], [facility] 9 09:00:56 Obesity 832880734 Active 2018 MICKI MILIAN [address] [facility], [address], [place], [address] , [facility] [employer] [facility] 9 09:01:03 Problem Notes None recorded. Medical Equipment None Reported. Allergies Allergen ID Allergen Name Allergen Category Reaction Reaction Severity Criticality Documentation Date Start Date Code Code System Note Provider Name and Address Organization Details Recorded Time 00062 Product containin g penicilli n (product) medicatio n Not available Not available Not available 05/05/2019 32971 8001 SNOMED CAN TAKE CEFTI N Not [...] Updated DateTime 5 165.1 cm 33.6 kg/m2 77344.6 6 g 70 /min 18 /min 97.6 [degF] 98 % 98 % 132 mm[Hg] 80 mm[Hg] Lauren Romero NP [address] [facility], [address], [place], [address], [facility] [employer] [facility] 5 15:32:09 Social History Question Answer Notes LastModified by Organizat ion Details LastModified Time Tobacco Smoking Status Never Smoker Not Available [facility] 06/17/2020 03:13:20 Do You Have An Advance Directive? Yes DNR/DNI; Ok For NIV; Ok To Transfer To Hospital; No Dialysis; No Artificial Nutrition; Ok For Short-term Artificial Hydration [email or web address] Information not available 09/03/2022 What Is Your Level Of Alcohol Consumption? None [id number] Information not available 06/17/2020 How Much Tobacco Do You Chew? None [id number] Information not available 06/17/2020 What Is Your Code Status? DNR/DNI [email or web address] Information not available 07/02/2022 Do You Or Have You Ever Used E-cigarettes Or Vape? Never Used Electronic Cigarettes [id number] Information not available 06/17/2020 Where Do You Live? [facility] [place] Information not available 07/02/2022 Legal Guardian? No Informati on not available 07/02/2022 Do You Have A Medical Power Of Ton Container Shipper? Yes Valid Copy In PCC; Previously Invoked [email or web address] Information not available 09/03/2022 What Was The Date Of Your Most Recent Tobacco Screening? 08/31/2022 [email or web address] Information not available 09/03/2022 Do You Have An Out Of Hospital DNR? Yes Information not available 07/02/2022 Do You Or Have You Ever Used Smokeless Tobacco? Never Used Smokeless Tobacco [id number] Information not available 06/17/2020 How Much Tobacco Do You Smoke? No [id number] Information not available 06/17/2020 Do You Use [...] Details LastModified Time Unspecified Relation Essential hypertension [email or web address] Not available 14:44:08 Unspecified Relation Complication of anesthesia Not available 09/03 14:50:42 Medical History No medical history recorded. Gynecological HistoryNo gynecological history recorded. Obstetrics History GPAL:G 0 P 0 0 0 0 Immunizations Vaccine Type Date Status Note Provider Nam e and Address Organization Details Recorded Time COVID-19, mRNA, LNP-S, PF, 30 mcg/0.3 mL dose 1 completed JASMINE GARCIA PA-C [address] [facility], [address], [place], [address], [facility] 09/03/2022 14:26:00 Influenza, adjuvanted, quadrivalent, PF 2 completed Sara griffith, [facility] 10/11/2023 08:11:48 COVID-19, mRNA, LNP-S, PF, 30 mcg/0.3 mL dose 1 completed LIZANDRO YU, BRAXTON [address], [place], [address], [facility] 10/21/2020 17:26:27 COVID-19, mRNA, LNP-S, PF, 30 mcg/0.3 mL dose 1 completed BRAXTON BERNSTEIN [address], [address], [place], [address], [facility] 10/21/2020 17:26:39 Influenza, split virus, quadrivalent, preservative 0 completed LIZANDROBRAXTON RAMSEY [address] [facility], [address], [place], [address], [facility] 10/21/2020 17:26:55 Past Encounters Encounter ID Performer Location Encounter Start Date Encounter Closed Date Diagnosis/Indication Diagnosis SNOMED-CT Code Diagnosis ICD10 Code Diagnosis Note [id number] Lauren Romero NP [address] [address] 09/07/2024 13:32:17 09/10/2024 16:32:08 Dementia 01847372 F02.B3 baseline dementia with behaviors often refusing meds or care and occ hallucinat ions/delus ions at baselineco ntquetiapi ne 25 mg tiddepakot e 125 mg po tidtopamax 50 mg po bidcontinu e supportive caremonito r for behaviorsp sych to follow Cerebrovas cular accident 570496919 Z86.79 hx CVA: dependent on most adl care with hx of cva and weakness gurmeet ASA 81 mg daily atorvastat in 40 mg daily Seizure disorder 7789526 02 G40.802 divalproex level 18 02/12divalp roex level 26 10/26/23diva lproex level 19 04/30/24no sz. activity in a long time, so will not increase dosecontdi valporex 125 mg tidtopiram ate 50 mg bidmonitor sz. activitymo nitor level q 6 months as she tolerates Atrial fibrillation 4943 6004 I48.19 stablecont xarelto 20 mg qdatenolol 50 mg qdmonitor for rate control Essential hypertension 71945025 I10 stablecont atenolol 50 mg qdmonitor bp and need to titrate Aphthous u lcer of mouth 143072098 K12.0 pt with long standing ulcer in mouth(? likely from biting and grinding)r esolvingco nt orders forchlorhe xidine swab bidgood oral hygienewil l continue Obesity 381891834 E66.9 has lost some weight >20 lbs this yearweight stable at 185 lbswill monitor monthly weights for changes and need to add supplement s Chronic pain 68924785 G8 9.29 hx of knee surgery right in past and occ neck painoveral l, feels it is controlled , but occ sorecontli docaine patch to right knee prn q 24 paintyl prnmuscle rub cream to neck prnmonitor Mixed anxi ety and depressive disorder 963774751 F41.8 conttopira mate 50 mg biddivalpr oex 125 mg tidquetiap ine 25 mg po tidsertral ine 25 mg dailywill monitor [id number] Lauren Romero NP [facility] [address] [address] 09/26/2024 15:31:19 09/28/2024 13:21:28 Breast lump 64247020 N63.0 2/ with hx of breast lumps per sister, all benign chest xray for right breast massper family hcp sister, no aggressive measures and agrees with cxr to see extent.no consults, no outpt visit/test s, biopsies2 start tramadol 50 mg po q 6 hours prn paincont tyl prn pain Health Concerns Section Related Observation LastModified by Organization Detai ls LastModified Time None Recorded Concern Status LastModified by Organization Details LastModified Time None Recorded Payers Encounter Date Sequence Insurance Name Policy Number Policy Montes Covered Member ID Montes Member ID Guarantor Name 09/26/2024 1 [place] [employer] Wilda Morales [id number] Wilda Morales 09/26/2024 2 [place] [facility] Wilda Morales [id number] Wilda Morales Notes Date Note Type Note [...] for pain prn. Lauren Romero, TSERING [address] [facility], [address], [place], [address], [facility] [employer] 09/26/2024 16:10:55 OBGyn Episode No OBEpisode recorded.
--- OUTSIDE RECORDS SUMMARY | 2024-10-20 07:17 | XMS_ITS | Continuity of Care Document ---
Author Organization [facility], [facility] Address [address] [place] [address] Care Team Providers Care Interlocking Pavement Installer Name Role Phone [facility] OTHER Assessment No [...] gait Active 2019 Elton Charles MD [address], [address], [place], [address], [facility] 0 13:48:14 Hypothyroidism 47103187 Active 2020 BRAXTON BERNSTEIN [address], [address], [place], [address], [facility] 1 10:54:46 Fall Active 2020 BRAXTON BERNSTEIN [address], [address], [place], [address], [facility] 1 21:11:30 Mixed anxiety and depressive disorder 729422848 Active 2020 BRAXTON BERNSTEIN [address], [address], [place], [address], [facility] 1 21:17:00 Subarachnoid hemorrhage due to traumatic injury 726036497 Active 2020 BRAXTON BERNSTEIN [address], [address], [place], [address], [facility] 1 21:19:57 Postconcussion syndrome 21298733 Active [address] [facility], [address], [place], [address], [facility] 1 19:44:12 Pain in right knee Active [address] [facility], [address], [place], [address], [facility] 1 17:35:06 Arthritis 8426636 Active 2021 BRAXTON B[address]STEIN [address] [facility], [address], [place], [address], [facility] 2 08:09:01 Chronic insomnia 598492248 Active 2021 [address]RA[address]TON [address]IN [address] [facility], [address], [place], [address], [facility] 2 12:33:07 Atrial fibrillation 57258016 Active [address] [place] [address], [address], [place], [address], [facility] 9 08:53:30 Cerebrovascula r accident 526086706 Active 2018 MICKI MILIAN [address] [place] [address], [address], [place], [address], [facility] 9 08:53:35 Seizure disorder 857565632 Active [address] [place] [address], [address], [place], [address], [facility] 9 08:54:40 Dementia 16807033 Active [address], [address], [place], [address], [facility] 9 09:00:49 Essential hypertension 01357449 Active [address], [address], [place], [address], [facility] 9 09:00:56 Obesity 746257917 Active [address] [facility], [address], [place], [address] , [facility] 9 09:01:03 Problem Notes None recorded. Medical Equipment None Reported. Allergies Allergen ID Allergen Name Allergen Category Reaction Reaction Severity Criticality Documentation Date Start Date Code Code System Note Provider Name and Address Organization Details Recorded Time 54734 Product containin g penicilli n (product) medicatio n Not available Not available Not available 05/05/2019 89044 8001 SNOMED CAN TAKE CEFTI N Not [...] Updated DateTime 5 165.1 cm 33.6 kg/m2 49149.6 6 g 70 /min 18 /min 97.6 [degF] 98 % 98 % 132 mm[Hg] 80 mm[Hg] Lauren Romero NP [address] [facility], [address], [place], [address], [facility] 5 15:03:33 Social History Question Answer Notes LastModified by Organizat ion Details LastModified Time Tobacco Smoking Status Never Smoker Not Available [facility] 06/17/2020 03:13:20 Do You Have An Advance Directive? Yes DNR/DNI; Ok For NIV; Ok To Transfer To Hospital; No Dialysis; No Artificial Nutrition; Ok For Short-term Artificial Hydration [email or web address] Information not available 09/03/2022 What Is Your Level Of Alcohol Consumption? None [id number] Information not available 06/17/2020 How Much Tobacco Do You Chew? None [id number] Information not available 06/17/2020 What Is Your Code Status? DNR/DNI [email or web address] Information not available 07/02/2022 Do You Or Have You Ever Used E-cigarettes Or Vape? Never Used Electronic Cigarettes [id number] Information not available 06/17/2020 Where Do You Live? [facility] Information not available 07/02/2022 Legal Guardian? No Informati on not available 07/02/2022 Do You Have A Medical Power Of Station Engineer Chief? Yes Valid Copy In PCC; Previously Invoked [email or web address] Information not available 09/03/2022 What Was The Date Of Your Most Recent Tobacco Screening? 08/31/2022 [email or web address] Information not available 09/03/2022 Do You Have An Out Of Hospital DNR? Yes Information not available 07/02/2022 Do You Or Have You Ever Used Smokeless Tobacco? Never Used Smokeless Tobacco [id number] Information not available 06/17/2020 How Much Tobacco Do You Smoke? No [id number] Information not available 06/17/2020 Do You Use [...] Details LastModified Time Unspecified Relation Essential hypertension [email or web address] Not available 14:44:08 Unspecified Relation Complication of anesthesia [email or web address] Not available 09/03 14:50:42 Medical History No medical history recorded. Gynecological HistoryNo gynecological history recorded. Obstetrics History GPAL:G 0 P 0 0 0 0 Immunizations Vaccine Type Date Status Note Provider Nam e and Address Organization Details Recorded Time COVID-19, mRNA, LNP-S, PF, 30 mcg/0.3 mL dose 1 completed JASMINE GARCIA PA-C [address] [facility], [address], [place], [address], [facility] 09/03/2022 14:26:00 Influenza, adjuvanted, quadrivalent, PF 2 completed Sara griffith, [facility] 10/11/2023 08:11:48 COVID-19, mRNA, LNP-S, PF, 30 mcg/0.3 mL dose 1 completed LIZANDRO YU, BRAXTON [address], [place], [address], [facility] 10/21/2020 17:26:27 COVID-19, mRNA, LNP-S, PF, 30 mcg/0.3 mL dose 1 completed BRAXTON BERNSTEIN [address], [address], [place], [address], [facility] 10/21/2020 17:26:39 Influenza, split virus, quadrivalent, preservative 0 completed LIZANDROBRAXTON RAMSEY [address] [facility], [address], [place], [address], [facility] 10/21/2020 17:26:55 Past Encounters Encounter ID Performer Location Encounter Start Date Encounter Closed Date Diagnosis/Indication Diagnosis SNOMED-CT Code Diagnosis ICD10 Code Diagnosis Note [id number] Lauren Romero NP [address] [address] 09/07/2024 13:32:17 09/10/2024 16:32:08 Dementia 46226260 F02.B3 baseline dementia with behaviors often refusing meds or care and occ hallucinat ions/delus ions at baselineco ntquetiapi ne 25 mg tiddepakot e 125 mg po tidtopamax 50 mg po bidcontinu e supportive caremonito r for behaviorsp sych to follow Cerebrovas cular accident 725591845 Z86.79 hx CVA: dependent on most adl care with hx of cva and weakness gurmeet ASA 81 mg daily atorvastat in 40 mg daily Seizure disorder 2197124 02 G40.802 divalproex level 18 02/12divalp roex level 26 10/26/23diva lproex level 19 04/30/24no sz. activity in a long time, so will not increase dosecontdi valporex 125 mg tidtopiram ate 50 mg bidmonitor sz. activitymo nitor level q 6 months as she tolerates Atrial fibrillation 4943 6004 I48.19 stablecont xarelto 20 mg qdatenolol 50 mg qdmonitor for rate control Essential hypertension 59653152 I10 stablecont atenolol 50 mg qdmonitor bp and need to titrate Aphthous u lcer of mouth 155431120 K12.0 pt with long standing ulcer in mouth(? likely from biting and grinding)r esolvingco nt orders forchlorhe xidine swab bidgood oral hygienewil l continue Obesity 612067491 E66.9 has lost some weight >20 lbs this yearweight stable at 185 lbswill monitor monthly weights for changes and need to add supplement s Chronic pain 55432229 G8 9.29 hx of knee surgery right in past and occ neck painoveral l, feels it is controlled , but occ sorecontli docaine patch to right knee prn q 24 paintyl prnmuscle rub cream to neck prnmonitor Mixed anxi ety and depressive disorder 387902484 F41.8 conttopira mate 50 mg biddivalpr oex 125 mg tidquetiap ine 25 mg po tidsertral ine 25 mg dailywill monitor [id number] Lauren Romero NP [facility] [address] [address] 09/26/2024 15:31:19 09/28/2024 13:21:28 Breast lump 71551544 N63.0 2 with hx of breast lumps per sister, all benign chest xray for right breast massper family hcp sister, no aggressive measures and agrees with cxr to see extent.no consults, no outpt visit/test s, biopsies2/ start tramadol 50 mg po q 6 hours prn paincont tyl prn pain [id number] Lauren Romero NP [facility] [address] 10/01/2024 14:36:25 10/02/2024 13:56:35 Breast lump 10434467 N63.0 2 with hx of breast lumps [...] 1o dayscont tyl prn pain Ankle pain 305584857 M25 .579 2/10left ankle swelling and painno [...] ID Guarantor Name 10/01/2024 1 [place]: [employer] Wilda Morales [id number] Wilda Morales 10/01/2024 2 [place] [facility] Wilda Morales [id number] Wilda Morales Notes Date Note Type Note [...] hours last week. Lauren Romero NP [address] [facility], [address], [place], [address], [facility] 10/01/2024 15:14:16 OBGyn Episode No OBEpisode recorded.
--- OUTSIDE RECORDS SUMMARY | 2024-10-20 07:17 | XMS_ITS | Encounter Summary ---
Author Organization [facility] Address [address] [place] [address] Care Team Providers Care Trade Union Secretary Name Role Phone Elton Charles MD Primary Care Provider [phone] Encounter Details Date Type Department Care Team (Late st Contact Info) Description 09/19/2024 Lab Requisition [facility] [address] [place] [address] Elton Charles MD [address] [facility] [address] [place], [address] Other meterman (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 Social History Tobacco Use [...] TOTAL Routine 09/19/2024 9:03 AM EST Other meterman (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 documented in this encounter Results * (ABNORMAL) Valproic acid level, total (09/19/2024 9:03 AM EST) Valproic Acid, Total 30(L) 50 - 100 mcg/mL LAB CHEMISTRY METHOD 09/19/2024 12:37 PM EST [facility] Blood Venous blood specimen / Unknown Venipuncture / Unknown 09/19/2024 9:03 AM EST 09/19/2024 11:39 AM EST us Elton Charles MD LAB BLOOD ORDERABLES Final Resul t [facility] [address] [place] [address], documented in this encounter Visit Diagnoses Diagnosis Other senior care (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 documented in this encounter Care Teams Trade Union Secretary Relationship Specialty Start Date End Date Elton Charles MD [address] [place] [address], [address] PCP - General Family Medicine 09/19/24 documented as of this encounter
--- OUTSIDE RECORDS SUMMARY | 2024-10-20 07:18 | XMS_ITS | Continuity of Care Document ---
Author Organization [facility], [facility] Address [address] [place] [address] Care Team Providers Care Provider Service Representative Name Role Phone [facility] OTHER Assessment No assessment [...] gait Active 2019 Elton Charles MD [address], [address], [place], [address], [facility] [place] 0 13:48:14 Hypothyroidism 40593158 Active 2020 BRAXTON BERNSTEIN [address], [address], [place], [address], [facility] [place] 1 10:54:46 Fall Active 2020 BRAXTON BERNSTEIN [address], [address], [place], [address], [facility] [place] 1 21:11:30 Mixed anxiety and depressive disorder 233709150 Active 2020 BRAXTON BERNSTEIN [address], [address], [place], [address], [facility] 1 21:17:00 Subarachnoid hemorrhage due to traumatic injury 706441081 Active 2020 BRAXTON BERNSTEIN [address], [address], [place], [address], [facility] 1 21:19:57 Postconcussion syndrome 35759364 Active 2020 BRAXTON BERNSTEIN [address], [address], [place], [address], [facility] 1 19:44:12 Pain in right knee Active 2020 KAY BERNSTEINP [address], [address], [place], [address], [facility] 1 17:35:06 Arthritis 8438816 Active 2021 BRAXTON BERNSTEIN [address], [address], [place], [address], [facility] 2 08:09:01 Chronic insomnia 205400242 Active 2021 BRAXTON BERNSTEIN [address], [address], [place], [address], [facility] 2 12:33:07 Atrial fibrillation 69847300 Active [address] [place] [address], [address], [place], [address], [facility] 9 08:53:30 Cerebrovascula r accident 568467997 Active 2018 MICKI MILIAN [address] [place] [address], [address], [place], [address], [facility] 9 08:53:35 Seizure disorder 217675627 Active [address] [place] [address], [address], [place], [address], [facility] 9 08:54:40 Dementia 43315721 Active [address], [address], [place], [address], [facility] 9 09:00:49 Essential hypertension 55089463 Active [address], [address], [place], [address], [facility] 9 09:00:56 Obesity 956062916 Active 2018 MICKI LORD [address], [address], [place], [address], [facility] 9 09:01:03 Problem Notes None recorded. Medical Equipment None Reported. Allergies Allergen ID Allergen Name Allergen Category Reaction Reaction Severity Criticality Documentation Date Start Date Code Code System Note Provider Name and Address Organization Details Recorded Time 81326 Product containin g penicilli n (product) medicatio n Not available Not available Not available 05/05/2019 50592 8001 SNOMED CAN TAKE CEFTI N Not Available Not Available Not Available Medications Not known to be on any medication Vitals Date Recorded Body height Provider Name an d Address Organization Details Last Updated DateTime 10/19/2024 165.1 cm Lauren Romero, N P [address], [address], [place], [address], [facility] 10/19/2024 15:57:22 Social History Question Answer Notes LastModified by Organizat ion Details LastModified Time Tobacco Smoking Status Never Smoker Not Available [facility] 06/17/2020 03:13:20 Do You Have An Advance Directive? Yes DNR/DNI; Ok For NIV; Ok To Transfer To Hospital; No Dialysis; No Artificial Nutrition; Ok For Short-term Artificial Hydration [email or web address] Information not available 09/03/2022 What Is Your Level Of Alcohol Consumption? None [id number] Information not available 06/17/2020 How Much Tobacco Do You Chew? None [id number] Information not available 06/17/2020 What Is Your Code Status? DNR/DNI [facility] Information not available 07/02/2022 Do You Or Have You Ever Used E-cigarettes Or Vape? Never Used Electronic Cigarettes [id number] Information not available 06/17/2020 [facility] Information not available 07/02/2022 Legal Guardian? No [facility] Informati on not available 07/02/2022 Do You Have A Medical Power Of Wholesale Loan Processor? Yes Valid Copy In [facility]; Previously Invoked [email or web address] Information not available 09/03/2022 What Was The Date Of Your Most Recent Tobacco Screening? 08/31/2022 [email or web address] Information not available 09/03/2022 Do You Have An Out Of Hospital DNR? Yes Information not available 07/02/2022 Do You Or Have You Ever Used Smokeless Tobacco? Never Used Smokeless Tobacco [id number] Information not available 06/17/2020 How Much Tobacco Do You Smoke? No [id number] Information not available 06/17/2020 Do You Use [...] Details LastModified Time Unspecified Relation Essential hypertension [email or web address] Not available 14:44:08 Unspecified Relation Complication of anesthesia [email or web address] Not available 09/03 14:50:42 Medical History No medical history recorded. Gynecological HistoryNo gynecological history recorded. Obstetrics History GPAL:G 0 P 0 0 0 0 Immunizations Vaccine Type Date Status Note Provider Nam e and Address Organization Details Recorded Time COVID-19, mRNA, LNP-S, PF, 30 mcg/0.3 mL dose 1 completed JASMINE GARCIA PA-C [address], [address], [place], [address], [facility] 09/03/2022 14:26:00 Influenza, adjuvanted, quadrivalent, PF 2 completed Sara griffith, [facility] 10/11/2023 08:11:48 COVID-19, mRNA, LNP-S, PF, 30 mcg/0.3 mL dose 1 completed BRAXTON BERNSTEIN [address], [address], [place], [address], [facility] 10/21/2020 17:26:27 COVID-19, mRNA, LNP-S, PF, 30 mcg/0.3 mL dose 1 completed BRAXTON BERNSTEIN [address], [address], [place], [address], [facility] [place] 10/21/2020 17:26:39 Influenza, split virus, quadrivalent, preservative 0 completed BRAXTON BERNSTEIN [address], [address], [place], [address], [facility] [place] 10/21/2020 17:26:55 Past Encounters Encounter ID Performer Location Encounter Start Date Encounter Closed Date Diagnosis/Indication Diagnosis SNOMED-CT Code Diagnosis ICD10 Code Diagnosis Note [id number] Lauren Romero NP [facility] [address] [address] 09/26/2024 15:31:19 09/28/2024 13:21:28 Breast lump 86222232 N63.0 2/5 with hx of breast lumps per sister, all benign chest xray for right breast massper family hcp sister, no aggressive measures and agrees with cxr to see extent.no consults, no outpt visit/test s, biopsies2/ 5 start tramadol 50 mg po q 6 hours prn paincont tyl prn pain [id number] Lauren Romero NP [facility] [address] [address] 10/01/2024 14:36:25 10/02/2024 13:56:35 Breast lump [id number] N63.0 2/5 with hx of breast lumps [...] 1o dayscont tyl prn pain Ankle pain 706385839 M25 .579 2/10left ankle swelling and painno known injuryxray to left ankle 2 views ro fractureic e prnelevate as toleratedc ont tramadol 50 mg po q 6 hrs and2/10 add additional 50 mg po prn if prn dose not effective within one hour x 10 daymonitor for s/s of infection [id number] Lauren Romero NP [facility] [address] [address] 10/04/2024 08:25:35 10/05/2024 13:24:59 Ankle pain 854793630 M25.579 10left ankle swelling and painno known injuryxray to left ankle 2 views ro fractureic e prnelevate as toleratedc ont tramadol 50 mg po q 6 hrs and2/ add additional 50 mg po prn if prn dose not effective within one hour x 10 daymonitor for s/s of infection cont above10/03 no ortho consult per hcp, comfort measures fu with ankle left xray 2 views in 4 weeks to eval if splint is needed Breast lump [id number] N63 .0 09/26 with hx of breast lumps per sister, all benign chest xray for right breast massper family hcp sister, no aggressive measures and agrees with cxr to see extent.no consults, no outpt visit/test s, biopsies09/26 start tramadol 50 mg po q 6 hours prn pain10 add tramadol 50 mg po additional dose if no relief in one hour for pain x 1o dayscont tyl prn pain10/03 no further measures needed, no workup Palliative care [id number] Z51.5 family requesting comfort care and hospicean updated molst will be filled out by sister soonhospic e consultpai n meds above for ronald rockwell dc atorvastat in and levothyrox ine todaymonit or [id number] Lauren Romero NP [facility] [address] [address] 10/19/2024 15:18:34 10/19/2024 16:24:48 Ankle pain 922532503 M25.579 ice prnelevate as toleratedn o ortho consult per hcp, comfort measures unclear why xray done on 10/18 instead of 2 more weeks away but healing as expectedsh e remains with some ankle pain and swelling will increase tyl to 1000 mg po tidshe has morphine prn for pain alsomonito r Shared car e - hospice and GP [id number] Z76.89 family requesting comfort care and hospicean updated molst will be filled out by sister lucero ramires n meds above for nowcontmor phine 5 [...] Member ID Montes Member ID Guarantor Name 10/19/2024 1 [place] [employer] Wilda Morales [id number] Wilda Morales 10/19/2024 2 [place] [facility] Wilda Morales [id number] Wilda Morales Notes Date Note Type Note Provider Name and Address Organization Details Recorded Time 10/19/2024 text/html Pt is seen for a [...] displaced fracture to left tib/fib in ER. Loiza no surgery recommended and splint to be [...] in bed at baseline confused state. Lauren Romero NP [address], [address], [place], [address], [facility] [place] 10/19/2024 16:24:47 OBGyn Episode No OBEpisode recorded.
--- OUTSIDE RECORDS SUMMARY | 2024-10-20 07:18 | XMS_ITS | Encounter Summary ---
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 Unspecified atrial fibrillation (CMS/HCC) COMPLETE BLOOD COUNT Routine 09/27/2024 7:28 AM EST 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 (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 Unspecified atrial fibrillation (CMS/HCC) THYROID STIMULATING HORMONE Routine 09/27/2024 7:28 AM EST 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 108 mg/dL LAB CHEMISTRY METHOD 09/27/2024 2:12 PM EST [facility] Blood Venous blood specimen / Unknown Venipuncture / Unknown 09/27/2024 7:28 AM EST 09/27/2024 9:29 AM EST us Elton Charles MD LAB BLOOD ORDERABLES Final Resul t [facility] [address] [place] [address], [place] [phone] * (ABNORMAL) Lipid panel with reflex to direct LDL (09/27/2024 7:28 AM EST) [facility] Cholesterol 94 0 - 200 mg/dL LAB CHEMISTRY METHOD 09/27/2024 10:[address] [facility] Triglycerides 227(H) 0 - 150 mg/dL LAB CHEMISTRY METHOD 09/27/2024 10:52 AM EST [facility] HDL 25(L) >=40 mg/dL LAB CHEMISTRY METHOD 09/27/2024 10:[address] [facility] LDL Calculated 24 0 - 100 mg/dL LAB CHEMISTRY METHOD 09/27/2024 10:52 AM EST [facility] VLDL Cholesterol Rudy 45.4 mg/dL LAB CHEMISTRY METHOD 09/27/2024 10:[address] [facility] Non HDL Chol. (LDL+VLDL) 69 <145 mg/dL LAB CHEMISTRY METHOD 09/27/2024 10:[address] [facility] Chol/HDL Ratio 3.8 0.0 - 4.4 LAB CHEMISTRY METHOD 09/27/2024 10:[address] [facility] Blood Venous blood specimen / Unknown Venipuncture / Unknown 09/27/2024 7:28 AM EST 09/27/2024 9:29 AM EST Elton Charles MD LAB BLOOD ORDERABLES Final Resul t Performing Organization Address [facility]/ZIP Co de Phone Number [facility] [address] [place] [address], [place] [phone] * (ABNORMAL) Thyroid stimulating hormone (09/27/2024 7:28 AM EST) TSH 5.90(H) 0.40 - 4.00 mcIU/mL LAB CHEMISTRY METHOD 09/27/2024 11:[address] [facility] Blood Venous blood specimen / Unknown Venipuncture / Unknown 09/27/2024 7:28 AM EST 09/27/2024 9:29 AM EST Elton Charles MD LAB BLOOD ORDERABLES Final Resul t Performing Organization Address [facility]/ZIP Co de Phone Number [facility] [address] [place] [address], [place] [phone] * (ABNORMAL) Comprehensive metabolic panel (09/27/2024 7:28 AM EST) Sodium 145 133 - 145 mmol/L LAB CHEMISTRY METHOD 09/27/2024 10:[address] [facility] Potassium 4.0 3.5 - 5.5 mmol/L LAB CHEMISTRY METHOD 09/27/2024 10:[address] [facility] Chloride 112(H) 96 - 110 mmol/L LAB CHEMISTRY METHOD 09/27/2024 10:[address] [facility] CO2 28 21 - 32 mmol/L LAB CHEMISTRY METHOD 09/27/2024 10:[address] [facility] Anion Gap 5 3 - 11 LAB CHEMISTRY METHOD 09/27/2024 10:[address] [facility] Glucose 88 70 - 100 mg/dL LAB CHEMISTRY METHOD 09/27/2024 10:[address] [facility] BUN 29(H) 5 - 25 mg/dL LAB CHEMISTRY METHOD 09/27/2024 10:[address] [facility] Creatinine 0.58 0.50 - 1.10 mg/dL LAB CHEMISTRY METHOD 09/27/2024 10:[address] [facility] eGFR 91 >=60 mL/min/1. 73m2 LAB CHEMISTRY METHOD 09/27/2024 10:[address] [facility] Comment:Calculation based on the??Chronic Kidney Disease Epidemiology Collaboration (CKD-EPI) equation refit??without adjustment for race. BUN/Creatinine Ratio 50.0 LAB CHEMISTRY METHOD 09/27/2024 10:[address] [facility] Calcium 8.3(L) 8.5 - 10.5 mg/dL LAB CHEMISTRY METHOD 09/27/2024 10:[address] [facility] AST (SGOT) 13 10 - 42 unit/L LAB CHEMISTRY METHOD 09/27/2024 10:[address] [facility] ALT (SGPT) 17 10 - 60 unit/L LAB CHEMISTRY METHOD 09/27/2024 10:[address] [facility] Alkaline Phosphatase 53 42 - 121 unit/L LAB CHEMISTRY METHOD 09/27/2024 10:[address] [facility] Total Protein 5.4(L) 6.0 - 8.0 g/dL LAB CHEMISTRY METHOD 09/27/2024 10:[address] [facility] Albumin 2.4(L) 3.2 - 5.0 g/dL LAB CHEMISTRY METHOD 09/27/2024 10:[address] [facility] Total Bilirubin 0.3 0.0 - 1.4 mg/dL LAB CHEMISTRY METHOD 09/27/2024 10:[address] [facility] Blood Venous blood specimen / Unknown Venipuncture / Unknown 09/27/2024 7:28 AM EST 09/27/2024 9:29 AM EST us Elton Charles MD LAB BLOOD ORDERABLES Final Resul t [facility] [address] [place] [address], * (ABNORMAL) Complete blood count (09/27/2024 7:28 AM EST) WBC 5.7 4.8 - 10.8 K/mcL LAB HEMETOLOGY METHOD 09/27/2024 11:[address] [facility] RBC 3.40(L) 3.80 - 4.80 M/[facility] LAB HEMETOLOGY METHOD 09/27/2024 11:[address] [facility] Hemoglobin 10.3(L) 11.5 - 16.0 g/dL LAB HEMETOLOGY METHOD 09/27/2024 11:[address] [facility] Hematocrit 31.9(L) 35.0 - 47.0 % LAB HEMETOLOGY METHOD 09/27/2024 11:[address] [facility] MCV 93.0 79.0 - 98.0 FL LAB HEMETOLOGY METHOD 09/27/2024 11:[address] [facility] MCH 30.0 27.0 - 32.0 pcg LAB HEMETOLOGY METHOD 09/27/2024 11:[address] [facility] MCHC 32.3 32.0 - 37.0 g/dL LAB HEMETOLOGY METHOD 09/27/2024 11:[address] [facility] RDW 15.1(H) 11.0 - 15.0 % LAB HEMETOLOGY METHOD 09/27/2024 11:43 AM EST [facility] Platelets 173 130 - 400 K/mcL LAB HEMETOLOGY METHOD 09/27/2024 11:43 AM EST [facility] MPV 11.3(H) 7.0 - 11.0 FL LAB HEMETOLOGY METHOD 09/27/2024 11:43 AM EST [facility] NRBC 0.0 <1.0 % LAB HEMETOLOGY METHOD 09/27/2024 11:43 AM EST [facility] NRBC Absolute 0.00 <0.10 K/mcL LAB HEMETOLOGY METHOD 09/27/2024 11:[address] 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
--- OUTSIDE RECORDS SUMMARY | 2024-10-20 07:18 | XMS_ITS | Clinical Summary ---
Author Organization [address] [facility] Address [address] [place] [address] Phone Care Team Providers Care Gear Nicker Name Role Phone Elton Charles MD Primary Care Provider [phone] Encounters Date Type Department Care Team Description 09/27/2024 Lab Requisition [facility] [address] [place] [address] Elton Charles MD Other long winder tender (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; Unspecified atrial fibrillation (CMS/HCC) 09/19/2024 Lab Requisition [facility] [address] [place] [address] Elton Charles MD Other fdc (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 from Last 3 Months [...] Comments DTaP,Tdap,and Td Vaccines (1 - Tdap) 1964 Pneumococcal Vaccine: 50+ Ye ars (1 of [...] A1C Routine 09/27/2024 7:28 AM EST Other fdc (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 Unspecified atrial fibrillation (CMS/HCC) LIPID PANEL WITH REFLEX TO DIRECT LDL Routine 09/27/2024 7:28 AM EST Other fdc (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 Unspecified atrial fibrillation (CMS/HCC) THYROID STIMULATING HORMONE Routine 09/27/2024 7:28 AM EST Other long winder tender (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 Unspecified atrial fibrillation (CMS/HCC) COMPREHENSIVE METABOLIC PANEL Routine 09/27/2024 7:28 AM EST Other fdc (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 Unspecified atrial fibrillation (CMS/HCC) COMPLETE BLOOD COUNT Routine 09/27/2024 7:28 AM EST Other long winder tender (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 Unspecified atrial fibrillation (CMS/HCC) VALPROIC ACID LEVEL, TOTAL Routine 09/19/2024 9:03 AM EST Other fdc (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 from Last 3 Months Results * (ABNORMAL) Lipid panel with reflex to direct LDL (09/27/2024 7:28 AM EST) Cholesterol 94 0 - 200 mg/dL LAB CHEMISTRY METHOD 09/27/2024 10:52 AM [facility] Triglycerides 227(H) 0 - 150 mg/dL LAB CHEMISTRY METHOD 09/27/2024 10:52 AM [facility] HDL 25(L) >=40 mg/dL LAB CHEMISTRY METHOD 09/27/2024 10:52 AM [facility] LDL Calculated 24 0 - 100 mg/dL LAB CHEMISTRY METHOD 09/27/2024 10:52 AM [facility] VLDL Cholesterol Rudy 45.4 mg/dL LAB CHEMISTRY METHOD 09/27/2024 10:52 AM [facility] Non HDL Chol. (LDL+VLDL) 69 <145 mg/dL LAB CHEMISTRY METHOD 09/27/2024 10:52 AM [facility] Chol/HDL Ratio 3.8 0.0 - 4.4 LAB CHEMISTRY METHOD 09/27/2024 10:52 AM [facility] Blood Venous blood specimen / Unknown Venipuncture / Unknown 09/27/2024 7:28 AM EST 09/27/2024 9:29 AM EST us Elton Charles MD LAB BLOOD ORDERABLES Final Resul t [facility] [address] [place] [address], * (ABNORMAL) Complete blood count (09/27/2024 7:28 AM EST) Pathologist [facility] WBC 5.7 4.8 - 10.8 K/mcL LAB HEMETOLOGY METHOD 09/27/2024 11:43 AM [facility] RBC 3.40(L) 3.80 - 4.80 M/mcL LAB HEMETOLOGY METHOD 09/27/2024 11:43 AM [facility] Hemoglobin 10.3(L) 11.5 - 16.0 g/dL LAB HEMETOLOGY METHOD 09/27/2024 11:43 AM [facility] Hematocrit 31.9(L) 35.0 - 47.0 % LAB HEMETOLOGY METHOD 09/27/2024 11:43 AM [facility] MCV 93.0 79.0 - 98.0 FL LAB HEMETOLOGY METHOD 09/27/2024 11:43 AM [facility] MCH 30.0 27.0 - 32.0 pcg LAB HEMETOLOGY METHOD 09/27/2024 11:43 AM [facility] MCHC 32.3 32.0 - 37.0 g/dL LAB HEMETOLOGY METHOD 09/27/2024 11:43 AM [facility] RDW 15.1(H) 11.0 - 15.0 % LAB HEMETOLOGY METHOD 09/27/2024 11:43 AM [facility] Platelets 173 130 - 400 K/mcL LAB HEMETOLOGY METHOD 09/27/2024 11:43 AM [facility] MPV 11.3(H) 7.0 - 11.0 FL LAB HEMETOLOGY METHOD 09/27/2024 11:43 AM [facility] NRBC 0.0 <1.0 % LAB HEMETOLOGY METHOD 09/27/2024 11:43 AM [facility] NRBC Absolute 0.00 <0.10 K/mcL LAB HEMETOLOGY METHOD 09/27/2024 11:43 AM [facility] Blood Venous blood specimen / Unknown Venipuncture / Unknown 09/27/2024 7:28 AM EST 09/27/2024 9:29 AM EST us Elton Charles MD LAB BLOOD ORDERABLES Final Resul t [facility] [address] [place] [address], [place] [phone] * (ABNORMAL) Thyroid stimulating hormone (09/27/2024 7:28 AM EST) [facility] TSH 5.90(H) 0.40 - 4.00 mcIU/mL LAB CHEMISTRY METHOD 09/27/2024 11:00 AM EST [facility] Blood Venous blood specimen / Unknown Venipuncture / Unknown 09/27/2024 7:28 AM EST 09/27/2024 9:29 AM EST Elton Charles MD LAB BLOOD ORDERABLES Final Resul t Performing Organization Address [facility]/ZIP Co de Phone Number [facility] [address] [place] [address], [place] [phone] * Hemoglobin A1c (09/27/2024 7:28 AM EST) [facility] Hemoglobin A1C 5.4 <6.5 % LAB CHEMISTRY METHOD 09/27/2024 2:12 PM EST [facility] Mean Bld Glu Estim. 108 mg/dL LAB CHEMISTRY METHOD 09/27/2024 2:12 PM EST [facility] Blood Venous blood specimen / Unknown Venipuncture / Unknown 09/27/2024 7:28 AM EST 09/27/2024 9:29 AM EST Elton Charles MD LAB BLOOD ORDERABLES Final Resul t [facility] [address] [place] [address], [place] [phone] * (ABNORMAL) Comprehensive metabolic panel (09/27/2024 7:28 AM EST) [facility] Sodium 145 133 - 145 mmol/L LAB CHEMISTRY METHOD 09/27/2024 10:52 AM EST [facility] Potassium 4.0 3.5 - 5.5 mmol/L LAB CHEMISTRY METHOD 09/27/2024 10:52 AM [facility] Chloride 112(H) 96 - 110 mmol/L LAB CHEMISTRY METHOD 09/27/2024 10:52 AM [facility] CO2 28 21 - 32 mmol/L LAB CHEMISTRY METHOD 09/27/2024 10:52 AM [facility] Anion Gap 5 3 - 11 LAB CHEMISTRY METHOD 09/27/2024 10:52 AM [facility] Glucose 88 70 - 100 mg/dL LAB CHEMISTRY METHOD 09/27/2024 10:52 AM [facility] BUN 29(H) 5 - 25 mg/dL LAB CHEMISTRY METHOD 09/27/2024 10:52 AM [facility] Creatinine 0.58 0.50 - 1.10 mg/dL LAB CHEMISTRY METHOD 09/27/2024 10:52 AM [facility] eGFR 91 >=60 mL/min/1. 73m2 LAB CHEMISTRY METHOD 09/27/2024 10:52 AM [facility] Comment:Calculation based on the??Chronic Kidney Disease Epidemiology Collaboration (CKD-EPI) equation refit??without adjustment for race. BUN/Creatinine Ratio 50.0 LAB CHEMISTRY METHOD 09/27/2024 10:52 AM [facility] Calcium 8.3(L) 8.5 - 10.5 mg/dL LAB CHEMISTRY METHOD 09/27/2024 10:52 AM [facility] AST (SGOT) 13 10 - 42 unit/L LAB CHEMISTRY METHOD 09/27/2024 10:52 AM [facility] ALT (SGPT) 17 10 - 60 unit/L LAB CHEMISTRY METHOD 09/27/2024 10:52 AM [facility] Alkaline Phosphatase 53 42 - 121 unit/L LAB CHEMISTRY METHOD 09/27/2024 10:52 AM [facility] Total Protein 5.4(L) 6.0 - 8.0 g/dL LAB CHEMISTRY METHOD 09/27/2024 10:52 AM EST [facility] Albumin 2.4(L) 3.2 - 5.0 g/dL LAB CHEMISTRY METHOD 09/27/2024 10:52 AM EST [facility] Total Bilirubin 0.3 0.0 - 1.4 mg/dL LAB CHEMISTRY METHOD 09/27/2024 10:52 AM EST [facility] Blood Venous blood specimen / Unknown Venipuncture / Unknown 09/27/2024 7:28 AM EST 09/27/2024 9:29 AM EST Elton Charles MD LAB BLOOD ORDERABLES Final Resul t Performing Organization Address City/[facility]/ZIP Co de Phone Number [facility] [address] [place] [address], [place] [phone] * (ABNORMAL) Valproic acid level, total (09/19/2024 9:03 AM EST) Valproic Acid, Total 30(L) 50 - 100 mcg/mL LAB CHEMISTRY METHOD 09/19/2024 12:37 PM EST [facility] Blood Venous blood specimen / Unknown Venipuncture / Unknown 09/19/2024 9:03 AM EST 09/19/2024 11:39 AM EST Elton Charles MD LAB BLOOD ORDERABLES Final Resul t [facility] [address] [place] [address], [place] [phone] from Last 3 Months Insurance MEDICARE MEDICAID - [place] Care Teams Gear Nicker Relationship Specialty Start Date End Date Elton Charles MD [address] [facility] [address] [place], [phone] PCP - General Family Medicine 09/19/24
--- OUTSIDE RECORDS SUMMARY | 2024-10-20 07:18 | XMS_ITS | Continuity of Care Document ---
Author Organization [facility], [facility] Address [address] [place] [address] Care Team Providers Care Tow Motor Operator Name Role Phone [facility] OTHER Assessment No [...] gait Active 2019 Elton Charles MD [address], [address], [place], [address], [facility] 0 13:48:14 Hypothyroidism 60702824 Active 2020 BRAXTON BERNSTEIN [address], [address], [place], [address], [facility] 1 10:54:46 Fall Active 2020 BRAXTON BERNSTEIN [address], [address], [place], [address], [facility] 1 21:11:30 Mixed anxiety and depressive disorder 376996273 Active 2020 BRAXTON BERNSTEIN [address], [address], [place], [address], [facility] 1 21:17:00 Subarachnoid hemorrhage due to traumatic injury 308684405 Active 2020 BRAXTON BERNSTEIN [address], [address], [place], [address], [facility] 1 21:19:57 Postconcussion syndrome 53764892 Active 2020 BRAXTON BERNSTEIN [address] [facility], [address], [place], [address], [facility] 1 19:44:12 Pain in right knee Active 2020 KAY BERNSTEINP [address] [facility], [address], [place], [address], [facility] 1 17:35:06 Arthritis 8676929 Active 2021 BRAXTON BERNSTEIN [address] [facility], [address], [place], [address], [facility] 2 08:09:01 Chronic insomnia 979523417 Active 2021 BRAXTON BERNSTEIN [address] [facility], [address], [place], [address], [facility] 2 12:33:07 Atrial fibrillation 82929599 Active [address] [place] [address], [address], [place], [address], [facility] 9 08:53:30 Cerebrovascula r accident 235658000 Active 2018 MICKI MILIAN [address] [place] [address], [address], [place], [address], [facility] 9 08:53:35 Seizure disorder 479034158 Active [address] [place] [address], [address], [place], [address], [facility] 9 08:54:40 Dementia 96678698 Active [address], [address], [place], [address], [facility] 9 09:00:49 Essential hypertension 51671314 Active [address], [address], [place], [address], [facility] 9 09:00:56 Obesity 619536799 Active 2018 MICKI MILIAN [address] [facility], [address], [place], [address] [place] [address] [facility] 9 09:01:03 Problem Notes None recorded. Medical Equipment None Reported. Allergies Allergen ID Allergen Name Allergen Category Reaction Reaction Severity Criticality Documentation Date Start Date Code Code System Note Provider Name and Address Organization Details Recorded Time 20378 Product containin g penicilli n (product) medicatio n Not available Not available Not available 05/05/2019 42811 8001 SNOMED CAN TAKE CEFTI N Not [...] Updated DateTime 5 165.1 cm 33.6 kg/m2 30551.6 6 g 82 /min 18 /min 98.7 [degF] 98 % 98 % 100 mm[Hg] 65 mm[Hg] Lauren Romero NP [address] [facility], [address], [place], [address], [facility] 5 08:26:21 Social History Question Answer Notes LastModified by Organizat ion Details LastModified Time Tobacco Smoking Status Never Smoker Not Available [facility] 03:13:20 Do You Have An Advance Directive? Yes DNR/DNI; Ok For NIV; Ok To Transfer To Hospital; No Dialysis; No Artificial Nutrition; Ok For Short-term Artificial Hydration [email or web address] Information not available 09/03/2022 What Is Your Level Of Alcohol Consumption? None [id number] Information not available 06/17/2020 How Much Tobacco Do You Chew? None [id number] Information not available 06/17/2020 What Is Your Code Status? DNR/DNI [facility] Information not available 07/02/2022 Do You Or Have You Ever Used E-cigarettes Or Vape? Never Used Electronic Cigarettes [id number] Information not available 06/17/2020 Where Do You Live? [facility] [place] Information not available 07/02/2022 Legal Guardian? No Informati on not available 07/02/2022 Do You Have A Medical Power Of Inner Tube Tuber Machine Operator? Yes Valid Copy In PCC; Previously Invoked [email or web address] Information not available 09/03/2022 What Was The Date Of Your Most Recent Tobacco Screening? 08/31/2022 Information not available 09/03/2022 Do You Have An Out Of Hospital DNR? Yes Information not available 07/02/2022 Do You Or Have You Ever Used Smokeless Tobacco? Never Used Smokeless Tobacco [id number] Information not available 06/17/2020 How Much Tobacco Do You Smoke? No [id number] Information not available 06/17/2020 Do You Use [...] Details LastModified Time Unspecified Relation Essential hypertension [email or web address] Not available 14:44:08 Unspecified Relation Complication of anesthesia [email or web address] Not available 09/03 14:50:42 Medical History No medical history recorded. Gynecological HistoryNo gynecological history recorded. Obstetrics History GPAL:G 0 P 0 0 0 0 Immunizations Vaccine Type Date Status Note Provider Nam e and Address Organization Details Recorded Time COVID-19, mRNA, LNP-S, PF, 30 mcg/0.3 mL dose 1 completed JASMINE GARCIA PA-C [address] [facility], [address], [place], [address], [facility] 09/03/2022 14:26:00 Influenza, adjuvanted, quadrivalent, PF 2 completed Sara griffith, [facility] 10/11/2023 08:11:48 COVID-19, mRNA, LNP-S, PF, 30 mcg/0.3 mL dose 1 completed LIZANDRO YU, BRAXTON [address], [place], [address], [facility] 10/21/2020 17:26:27 COVID-19, mRNA, LNP-S, PF, 30 mcg/0.3 mL dose 1 completed BRAXTON BERNSTEIN [address], [address], [place], [address], [facility] 10/21/2020 17:26:39 Influenza, split virus, quadrivalent, preservative 0 completed LIZANDROBRAXTON RAMSEY [address] [facility], [address], [place], [address], [facility] 10/21/2020 17:26:55 Past Encounters Encounter ID Performer Location Encounter Start Date Encounter Closed Date Diagnosis/Indication Diagnosis SNOMED-CT Code Diagnosis ICD10 Code Diagnosis Note [id number] Lauren Romero NP [address] [address] 09/07/2024 13:32:17 09/10/2024 16:32:08 Dementia 79698783 F02.B3 baseline dementia with behaviors often refusing meds or care and occ hallucinat ions/delus ions at baselineco ntquetiapi ne 25 mg tiddepakot e 125 mg po tidtopamax 50 mg po bidcontinu e supportive caremonito r for behaviorsp sych to follow Cerebrovas cular accident 358461911 Z86.79 hx CVA: dependent on most adl care with hx of cva and weakness gurmeet ASA 81 mg daily atorvastat in 40 mg daily Seizure disorder 7235419 02 G40.802 divalproex level 18 02/12divalp roex level 26 10/26/23diva lproex level 19 04/30/24no sz. activity in a long time, so will not increase dosecontdi valporex 125 mg tidtopiram ate 50 mg bidmonitor sz. activitymo nitor level q 6 months as she tolerates Atrial fibrillation 4943 6004 I48.19 stablecont xarelto 20 mg qdatenolol 50 mg qdmonitor for rate control Essential hypertension 84075584 I10 stablecont atenolol 50 mg qdmonitor bp and need to titrate Aphthous u lcer of mouth 441655415 K12.0 pt with long standing ulcer in mouth(? likely from biting and grinding)r esolvingco nt orders forchlorhe xidine swab bidgood oral hygienewil l continue Obesity 621254923 E66.9 has lost some weight >20 lbs this yearweight stable at 185 lbswill monitor monthly weights for changes and need to add supplement s Chronic pain 40897011 G8 9.29 hx of knee surgery right in past and occ neck painoveral l, feels it is controlled , but occ sorecontli docaine patch to right knee prn q 24 paintyl prnmuscle rub cream to neck prnmonitor Mixed anxi ety and depressive disorder 589571293 F41.8 conttopira mate 50 mg biddivalpr oex 125 mg tidquetiap ine 25 mg po tidsertral ine 25 mg dailywill monitor [id number] Lauren Romero NP [facility] [address] [address] 09/26/2024 15:31:19 09/28/2024 13:21:28 Breast lump 92155385 N63.0 2 with hx of breast lumps per sister, all benign chest xray for right breast massper family hcp sister, no aggressive measures and agrees with cxr to see extent.no consults, no outpt visit/test s, biopsies2/ start tramadol 50 mg po q 6 hours prn paincont tyl prn pain [id number] Lauren Romero NP [facility] [address] 10/01/2024 14:36:25 10/02/2024 13:56:35 Breast lump 87086323 N63.0 2 with hx of breast lumps [...] 1o dayscont tyl prn pain Ankle pain 216091449 M25 .579 2/10left ankle swelling and painno known injuryxray to left ankle 2 views ro fractureic e prnelevate as toleratedc ont tramadol 50 mg po q 6 hrs and2/10 add additional 50 mg po prn if prn dose not effective within one hour x 10 daymonitor for s/s of infection [id number] Lauren Romero NP [address] [address] 10/04/2024 08:25:35 10/05/2024 13:24:59 Ankle pain 922747880 M25.579 2/10left ankle swelling and painno known injuryxray to left ankle 2 views ro fractureic e prnelevate as toleratedc ont tramadol 50 mg po q 6 hrs and2/10 add additional 50 mg po prn if prn dose not effective within one hour x 10 daymonitor for s/s of infection2 /12 cont above2/12 no ortho consult per hcp, comfort measures2/ 12 fu with ankle left xray 2 views in 4 weeks to eval if splint is needed Breast lump 74100482 N63 .0 2 with hx of breast lumps per [...] further measures needed, no workup Palliative care 24051551 9 Z51.5 family requesting comfort care and hospicean updated molst will be filled out by sister lucero e denapanasir n meds above for ronald rockwell dc atorvastat in and levothyrox ine todaymonit or Health Concerns Section Related Observation LastModified by Organization Detai ls LastModified Time None Recorded Concern Status LastModified by Organization Details LastModified Time None Recorded Payers Encounter Date Sequence Insurance Name Policy Number Policy Montes Covered Member ID Montes Member ID Guarantor Name 10/04/2024 1 [place] [employer] Wilda Morales [id number] Wilda Taverasolph 10/04/2024 2 [place] [facility] Wilda Morales [id number] Wilda Morales Notes Date Note Type Note Provider Name and Address Organization Details Recorded Time 10/04/2024 text/html Pt is seen for a [...] No significant joint malalignment. Mild soft tissue swelling.CONCLUSION : Acute appearing distal tibia/fibula fractures as noted. She was sent to hospital for evaluation of fracture on 10/02 when resulted. xray revealed minimally displaced fracture to left tib/fib. [place] no surgery recommended and splint to be [...] aware tramadol is available as needed. Lauren Romero NP [address] [facility], [address], [place], [address], [facility] 10/04/2024 09:45:32 OBGyn Episode No OBEpisode recorded.
== END 2024-10-19 07:15 | disposition home or self-care (01) ==
LOC: HO.HOSX 07:14
PROVIDERS: Visit Provider Physician Assistant
DX: Z13.89 Encounter for screening for other disorder (principal)